=== PATIENT | male | born 1985 | race Caucasian/White ===

== ENCOUNTER 2018-05-23 11:32 | Emergency (ER) | payer MEDICAID, SELFPAY ==
[2018-05-23 11:42] VITALS: BP 108/66; PULSE 86; RESP 16; TEMP 36.8; O2SAT 98
--- NOTE | 2018-05-23 12:15 | DI.RPTCT_ITS ---
SYMPTOMS/DIAGNOSIS: HEADACHE, FEVER, ? ACUTE DISEASE; LOWER ABDOMINAL PAIN, ? ACUTE APPENDICITIS OR OBSTRUCTION NONCONTRAST HEAD CT: Comparison is made with February,. No intracranial hemorrhage, mass or infarct is seen. The ventricles are normal in size. There is no evidence of skull fracture. There is minimal sinus mucosal thickening. The mastoid air cells appear clear. IMPRESSION: Negative head CT. CT OF THE ABDOMEN AND PELVIS: Comparison is made with November,. Oral barium was given before the examination. No IV contrast was administered due to a history of IV contrast allergy. IV contrast was administered on the 2010 exam. The lung bases are clear. The heart size is normal. The liver, gallbladder, spleen, pancreas, kidneys and adrenals appear normal. The oral contrast is seen within the stomach and proximal to mid small bowel. The distal small bowel and colon are not opacified. The appendix appears normal. There is no abnormal bowel dilatation or gallbladder wall thickening. No mass or adenopathy is seen. The bladder and prostate are unremarkable. No bony abnormalities are identified. IMPRESSION: Negative CT of the abdomen and pelvis.
[2018-05-23 12:17] VITALS: RESP 16
[2018-05-23 12:38] LABS: Abs Immature Grans 0.02 k/cumm (0.0-0.09); Absolute Basophil Count 0.05 k/cumm (0.0-0.2); Absolute Eosinophil Count 0.19 k/cumm (0.0-0.7); Absolute Lymphocyte Count 1.87 k/cumm (1.2-3.4); Absolute Monocyte Count 0.72 k/cumm (0.11-0.7); Absolute Neutrophil Count 1.98 k/cumm (1.2-6.7); Eosinophils % 3.9; HCT 42.8 % (40.0-50.0); HGB 14.6 g/dL (13.5-17.5); Immature Grans % 0.4; Lymphocytes % 38.7; Mean Corp. HGB Concentration 34.1 g/dL (32.0-36.0); Mean Corpuscular Hemoglobin 29.1 pg (27.0-33.0); Mean Corpuscular Volume 85.4 fL (80-95); Monocytes % 14.9; Neutrophils % 41.1; Platelet Count 247 x1000/uL (130-400); RBC 5.01 m/cumm (4.50-6.00); RBC Distribution Width 13.1 % (11.8-14.1); White Blood Cell Count 4.83 k/cumm (4.4-10.8)
[2018-05-23 12:55] LABS: Bilirubin Negative (Negative); Blood Negative (Negative); Clarity Clear; Glucose Negative (Negative); Ketones Trace mg/dL (Negative); Leukocyte Esterase Negative (Negative); Nitrite Negative (Negative); Specific Gravity 1.025 (1.005-1.025); Urobilinogen 0.2 EU/dL (Up TO 0.2); pH 5.5 (5-8)
[2018-05-23 12:56] LABS: ALT 40 U/L (12-78); AST 40 U/L (15-37); Albumin 4.1 g/dL (3.4-5.0); Alkaline Phosphatase 85 U/L (46-116); BUN 15 mg/dL (7-18); Bilirubin, Total 0.3 mg/dL (0.2-1.0); Calcium 8.7 mg/dL (8.5-10.1); Chloride 99 mmol/L (98-107); Glucose 75 mg/dL (70-100); Potassium 4.5 mmol/L (3.5-5.1); Sodium 135 mmol/L (136-145); Total Protein 7.9 g/dL (6.4-8.2)
[2018-05-23] MEDS: Normal Saline 1,000 ML 1000 ML IV (13:29)
[2018-05-23] MEDS: MORPHine 10 MG/ML VIAL 4 MG IVP ×2 (13:29→14:40)
--- NOTE | 2018-05-23 14:36 | ED.GENADUL ---
Disposition Clinical Impression: Abdominal pain, Constipation Disposition: HOME Instructions: Constipation (ED), Abdominal Pain (ED) Additional Instructions: Drink plenty of fluids and eat a well-balanced diet including high fiber, vegetables and fruit. You can use mineral oil, magnesium citrate as directed, dispense suppositories, or an enema as directed for constipation. Follow-up with your primary care doctor within the next week. Return to the emergency department with any worsening or new concerning symptoms. Forms: Work Release Medical Decision Making - Lab Data Laboratory Tests 05/23/18 05/23/18 05/23/18 12:00 12:25 12:25 WBC RBC Hgb Hct MCV MCH MCHC RDW Plt Count MPV Immature Gran % Neutrophils % Lymphocytes % Monocytes % Eosinophils % Basophils % Absolute Neutrophils Absolute Lymphocytes Absolute Monocytes Absolute Eosinophils Absolute Basophils Sodium 135 L Potassium 4.5 Chloride 99 Carbon Dioxide 29.0 Anion Gap 7.0 BUN 15 Creatinine 0.90 Estimated GFR/1.73 m2 >= 60.00 Glucose 75 Lactate 1.0 Calcium 8.7 Total Bilirubin 0.3 AST 40 H ALT 40 Alkaline Phosphatase 85 Total Protein 7.9 Albumin 4.1 Urine Color Yellow Urine Clarity Clear Urine pH 5.5 Ur Specific [place] 1.025 Urine Protein Negative Urine Ketones Trace H Urine Blood Negative Urine Nitrite Negative Urine Bilirubin Negative Urine Urobilinogen 0.2 Ur Leukocyte Esterase Negative Urine Glucose Negative 05/23/18 12:25 WBC 4.83 RBC 5.01 Hgb 14.6 Hct 42.8 MCV 85.4 MCH 29.1 MCHC 34.1 RDW 13.1 Plt Count 247 MPV 10.0 Immature Gran % 0.4 Neutrophils % 41.1 Lymphocytes % 38.7 Monocytes % 14.9 Eosinophils % 3.9 Basophils % 1.0 Absolute Neutrophils 1.98 Absolute Lymphocytes 1.87 Absolute Monocytes 0.72 H Absolute Eosinophils 0.19 Absolute Basophils 0.05 Sodium Potassium Chloride Carbon Dioxide Anion Gap BUN Creatinine Estimated GFR/1.73 m2 Glucose Lactate Calcium Total Bilirubin AST ALT Alkaline Phosphatase Total Protein Albumin Urine Color Urine Clarity Urine pH Ur Specific [place] Urine Protein Urine Ketones Urine Blood Urine Nitrite Urine Bilirubin Urine Urobilinogen Ur Leukocyte Esterase Urine Glucose - Radiology Data Radiology results: report reviewed, image reviewed CT head: negative CT abdomen and pelvis: negative - Medical Decision Making 32-year-old male with essentially no past medical history presents with lower abdominal pain for the past 3 days associated with fever, headache and decreased appetite. He denies neck pain and no signs of meningismus so doubt meningitis. Suspect headache likely due to fever which may be from more likely an abdominal source as patient has significant lower abdominal tenderness to palpation, worse in left lower quadrant but also in RLQ with positive Rovsing sign, psoas sign. Will place an IV, bolus IV fluids, labs, CT head and CT abdomen and pelvis. Patient has history of allergy to IV dye which causes itching approximately 12 years ago. His chart also noted an allergy to p.o. contrast. Patient states he cannot recall this reaction. This was discussed with radiology who recommended barium which is safe in cases of allergy to the standard PO contrast. 1430 --patient planing of return of pain. He admitted to relief with morphine. Patient still drinking barium. Will give another dose of morphine. 1640 --labs and imaging reviewed. No acute significant findings. Patient reassessed and still complaining of lower abdominal pain and still with lower abdominal tenderness. Differential diagnosis discussed with patient that his symptoms may be due to constipation. Patient states he would rather go home and medication to help with his constipation. Patient has taken mineral before. He was also instructed that he can take suppositories, magnesium citrate or enema. It was discussed with patient that his headache and fever yesterday may be due to a viral syndrome which also may be causing his constipation. I discussed that meningitis seems doubtful as he had no fever here, normal white blood cell count, denies neck pain, no signs of meningismus. Lumbar puncture was discussed and patient declined stating he would not want this done at this time. Patient had requested a work note for this week and to return next week. I explained to patient that we can give a work note for the next 2 days and he is off the weekend and then to return Sunday. Patient states he feels good to go home at this time and lives nearby and will come back immediately if he has worsening or new concerning symptoms. History of Present Illness - General Chief complaint: Headache Stated complaint: HEADACHE/FEVER Time Seen by Provider: 05/23/18 11:39 Source: patient Mode of arrival: ambulatory Limitations: no limitations - History of Present Illness Initial comments: 32-year-old male with no significant past medical history presents with lower abdominal pain for the past 2 days. States the abdominal pain is intermittent, cramping and he initially thought was constipation. Patient took prune juice 2 days without relief. Last bowel movement 3 days ago. Patient states he normally has a bowel movement every day. Patient also admits to a fever yesterday morning of 103. Patient last took Aleve at 11 AM this morning. Patient also admits to a bitemporal headache since yesterday currently 01/29. Patient has been drinking well but eating less than usual. Patient denies neck pain, sore throat, ear pain, cough, rash, vomiting, diarrhea, urinary symptoms, recent travel or sick contacts - Related Data Acetaminophen [Tylenol] 500 mg PO DAILY PRN 11/29/17 Ibuprofen 800 mg PO PRN PRN 05/23/18 Allergies Allergy/AdvReac Type Severity Reaction Status Date / Time Iodinated Contrast- Oral and Allergy Unknown ITCHING Unverified 03/28/18 11:08 IV Dye [Iodinated Contrast Media - Oral and] Review of Systems Constitutional: denies: chills, fever Eyes: denies: eye pain ENT: denies: ear pain, dental pain Respiratory: denies: cough, shortness of breath Cardiovascular: denies: chest pain, dyspnea on exertion Gastrointestinal: abdominal pain. denies: nausea, vomiting, diarrhea Genitourinary: denies: urgency, dysuria, frequency Musculoskeletal: denies: back pain Skin: denies: rash, lesions Neurological: headache. denies: weakness, numbness Past Medical History - Past Medical History Medical history: no medical history Surgical history: other (Hemorrhoidectomy) - Social History Smoking status: current everyday smoker Alcohol use: none Drug use: marijuana General Exam - General Limitations: no limitations General appearance: alert, other (appears uncomfortable at times) - Eye Eye exam: Present: EOMI - ENT ENT exam: Present: normal orophraynx, mucous membranes moist, TM's normal bilaterally - Neck Neck exam: Present: normal inspection. Absent: lymphadenopathy - Respiratory Respiratory exam: Present: normal lung sounds bilaterally. Absent: respiratory distress, wheezes, rales, rhonchi, stridor - Cardiovascular Cardiovascular Exam: Present: regular rate, normal rhythm. Absent: bradycardia, tachycardia - GI/Abdominal GI/Abdominal exam: Present: soft, tenderness (Significant tenderness to palpation across lower abdomen, increased in left lower quadrant. Positive Rovsing sign. Positive psoas sign. Negative heel jar sign.), normal bowel sounds. Absent: distended, guarding, rebound, rigid - exam: Present: normal inspection External exam: Absent: erythema, swelling, lesions - Back Exam Back exam: Absent: CVA tenderness (R), CVA tenderness (L) - Neurological Exam Neurological exam: Present: alert, oriented X3, other (Muscle strength 5/5 bilateral upper and lower extremities.). Absent: CN II-XII intact, motor sensory deficit - Psychiatric Psychiatric exam: Present: normal affect - Skin Skin exam: Present: warm, dry, intact. Absent: rash Course Vital Signs - 24 hr 05/23/18 05/23/18 11:42 12:17 Temperature 98.2 F Pulse 86 Respiratory 16 16 Rate Blood Pressure 108/66 Pulse Oximetry 98
[2018-05-23] MEDS: Normal Saline 1,000 ML 125 ML IV (14:42)
[2018-05-23 15:59] VITALS: BP 107/67; PULSE 60; RESP 18; TEMP 37.2; O2SAT 98
[2018-05-23 16:57] VITALS: BP 101/65; PULSE 60; RESP 16; TEMP 36.6; O2SAT 97
== END 2018-05-23 17:00 | disposition home or self-care (01) ==
PROVIDERS: Emergency Provider Physician Assistant; PCP Family Medicine
DX: K59.00 Constipation, unspecified (principal); R10.30 Lower abdominal pain, unspecified; R51 Headache; R50.9 Fever, unspecified
CPT/HCPCS: 36415; 80053; 96361; 96374; 96376; 99284; 70450; 74176; 81003; 83605; 85025; 99285; J2270

== ENCOUNTER 2018-11-04 05:25 | Emergency (ER) | payer MEDICAID, SELFPAY ==
[2018-11-04 05:29] VITALS: BP 117/71; PULSE 79; RESP 16; TEMP 36.5; O2SAT 98
--- NOTE | 2018-11-04 05:57 | ED.GENADUL_ITS ---
Discharge Plan Disposition Patient Disposition: HOME Condition: Stable Discharge Details Chief Complaint: AnimalBite Clinical Impression: Skin infection Primary Care Provider: Angel Culp ED Provider: Shalini Moise Home Meds and New Rx's Prescriptions: New mupirocin calcium [Bactroban] 2 % cream 1 applic TP TID Qty: 15 RF: 0 No Action acetaminophen [Mapap Extra Strength] 500 MG tablet 500 mg PO DAILY PRNRF: 0 ibuprofen 200 MG capsule 800 mg PO PRN PRNRF: 0 Discharge Instructions Instructions: Cellulitis (ED), Insect Bite or Sting (ED) Additional Instructions: Apply topical antibiotic to the affected area as directed. Keep area clean dry and intact. Keep wound open to air when you are resting comfortably at home. Cover with dressing if any risk of contamination. Follow-up with the primary care doctor in 1-2 days for reevaluation. Return immediately to the emergency department any worsening or new concerning symptoms such as fever, red streaking or any other concerns. Stand Alone Forms: Work Release Discharge Data Discharge Physician: Shalini Moise Medical Decision Making 32-year-old male who presents with concern for spider bite to the right abdomen. No fever. There appears to be 2 small pinpoint papules/erosions on the right mid abdomen. There is no signs of abscess and only minimal surrounding erythema. Unsure if this is actually a spider bite but it appears consistent with a minor skin infection. No indication for oral antibiotics at this time. We will send home with a prescription for Bactroban. Patient is instructed on the importance of good wound care. He is instructed to return here immediately with any worsening signs. Patient requests a work note for today. HPI General Mode of arrival: ambulatory . Date/Time Provider Initiated Documentation: 11/04/18 05:45 . Limitations to Documentation: no limitations . Information obtained by: patient . HPI Narrative: Patient is a 32-year-old male who presents with concern for spider bite to his abdomen for the past 7 days. Patient states he was carrying wood into his house and shortly after noticed 2 small haskins on his back that of his abdomen which he thought was a spider bite. States they were red and tender but have gotten slightly increased in size. He states he applied lidocaine cream, anti-itch cream, but only had burning with these. Patient states he did not apply an antibiotic ointment. Patient denies any fever. Related Data Home Medications Medication Instructions Recorded Confirmed acetaminophen [Mapap Extra 500 mg PO DAILY PRN 11/29/17 11/04/18 Strength] ibuprofen 800 mg PO PRN PRN 05/23/18 11/04/18 mupirocin calcium [Bactroban] 1 applic TP TID #15 gm 11/04/18 Previous Rx's Medication Instructions Recorded mupirocin calcium [Bactroban] 1 applic TP TID #15 gm 11/04/18 Allergies Allergy/AdvReac Type Severity Reaction Status Date / Time Iodinated Contrast- Oral and Allergy Unknown ITCHING Unverified 11/04/18 05:35 IV Dye [Iodinated Contrast Media - Oral and] General Stated Complaint: AnimalBite NADIRA: 4 Review of Systems Review of Systems All systems reviewed & are unremarkable except as noted in HPI and below Constitutional Reports as per HPI, Denies chills and Denies fever(s) Eyes Denies blurry vision ENT Denies dizziness, Denies sore throat and Denies throat swelling Cardiovascular Denies chest pain and Denies dyspnea Respiratory Denies dyspnea Gastrointestinal Denies abdominal pain, Denies diarrhea and Denies vomiting Genitourinary Denies hematuria and Denies dysuria Musculoskeletal Denies back pain and Denies numbness Integumentary/Breasts Reports lesions and Denies rash Neurologic Denies dizziness and Denies numbness Allergic/Immunologic Denies throat swelling [facility] Medical History Hemorrhoids (Acute) Depression (Chronic) Surgical History H/O hemorrhoidectomy (Chronic) Incision & Drainage, Abscess or Hematoma Social History Smoking/Tobacco Use Status: Current-Occasional alcohol intake: current alcohol intake frequency: a few times a month substance use type: marijuana Exam Const General: cooperative, healthy appearing and no acute distress HENMT Head: normal to inspection Face and sinus: normal facial exam Eyes General: appearance normal, both eyes and all related structures Neck Neck: normal visual inspection and No submandibular swelling Lymphatic: no lymphadenopathy noted Chest Chest: normal inspection of the chest and no tenderness Resp Effort & Inspection: normal respiratory effort and able to speak in complete sentences Auscultation: clear to auscultation bilaterally Cardio Rate: regular rate Rhythm: regular rhythm GI Inspection: normal to inspection Palpation: soft, not firm, not rigid and nontender Auscultation: normal bowel sounds Skin Full body images: 1. 2 mm erosion with minimal surrounding erythema and tenderness to palpation. No induration, fluctuance, drainage, bleeding. 2. 1 mm papule with surrounding minimal erythema and tenderness palpation. No induration, fluctuance, drainage or bleeding. Neuro General: alert, awake and oriented x3 Cognition: normal cognition Speech: speech normal Motor: muscle tone normal throughout Sensory Exam: no sensory deficits noted Extrem General: normal to inspection, full ROM and normal capillary refill Psych Appearance: grossly normal Mental Status: mental status grossly normal Speech and Movement: speech and movement normal Affect: normal affect Course Vital Signs Temperature 97.7 F 11/04/18 05:29 Pulse 79 11/04/18 05:29 Respiratory Rate 16 11/04/18 05:29 Blood Pressure 117/71 11/04/18 05:29 Pulse Oximetry 98 11/04/18 05:29 Temperature 97.7 F 11/04/18 05:29 Temperature Source Temporal Artery Scan 11/04/18 05:29 Pulse 79 11/04/18 05:29 Respiratory Rate 16 11/04/18 05:29 Respiratory Effort 11/04/18 05:29 Blood Pressure 117/71 11/04/18 05:29 Pulse Oximetry 98 11/04/18 05:29 Oxygen Delivery Method Room Air 11/04/18 05:29 Oxygen Flow Rate 0 11/04/18 05:29 Pain Level 2 11/04/18 05:29
[2018-11-04 08:12] VITALS: BP 117/71; PULSE 79; RESP 16; TEMP 36.5; O2SAT 98
== END 2018-11-04 06:00 | disposition home or self-care (01) ==
LOC: ER 06:09
PROVIDERS: Emergency Provider Physician Assistant; PCP Family Medicine
DX: L08.9 Local infection of the skin and subcutaneous tissue, unspecified (principal)
CPT/HCPCS: 99283

== ENCOUNTER 2018-12-20 12:28 | Emergency (ER) | payer MEDICAID, SELFPAY ==
[2018-12-20 12:30] VITALS: PULSE 88; RESP 16; TEMP 36.7; O2SAT 99
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
[2018-12-20 12:53] VITALS: PULSE 88; RESP 16; TEMP 36.7; O2SAT 99
== END 2018-12-20 12:55 | disposition home or self-care (01) ==
LOC: ER 12:57
PROVIDERS: Emergency Provider Student in an Organized Health Care Education/Training Program; PCP Family Medicine
DX: S01.81XA Laceration without foreign body of other part of head, initial encounter (principal); S50.312A Abrasion of left elbow, initial encounter; V47.5XXA Car driver injured in collision with fixed or stationary object in traffic accident, initial encounter
CPT/HCPCS: 12001; 99282

== ENCOUNTER 2019-02-05 18:16 | Emergency (ER) | payer MEDICAID, SELFPAY ==
[2019-02-05 18:20] VITALS: BP 132/102; PULSE 124; RESP 18; TEMP 36.3; O2SAT 95
[2019-02-05 18:57] LABS: *AMPHETAMINES SCREEN URINE Negative (Negative); *BARBITURATES SCREEN URINE Negative (Negative); *BENZODIAZEPINES SCREEN URINE Negative (Negative); Cannabinoids THC Negative (Negative); Cocaine Screen,Urine Negative (Negative); METHADONE URINE SCREEN Negative (Negative); OPIATES URINE SCREEN Negative (Negative)
[2019-02-05 19:00] LABS: Tricyclic Antidepressants Negative (Negative)
--- NOTE | 2019-02-05 19:10 | W.ED.GENAD ---
Discharge Plan Disposition Patient Disposition: HOME Condition: Good Discharge Details Chief Complaint: GenMedical Clinical Impression: Worried well Primary Care Provider: Angel Culp ED Provider: Serjio Sierra Home Meds and New Rx's Prescriptions: No Action acetaminophen [Mapap Extra Strength] 500 MG tablet 500 mg PO DAILY PRNRF: 0 mupirocin calcium [Bactroban] 2 % cream 1 applic TP TID Qty: 15 RF: 0 ibuprofen 200 MG capsule 800 mg PO PRN PRNRF: 0 Discharge Instructions Additional Instructions: Your drug screen shows no evidence of the tested illicit substances. If you notice any worsening of your symptoms, or any new symptoms such as vomiting, diarrhea, fever, chills, shortness of breath, chest pain, numbness, weakness, or fainting , please return immediately to the emergency department for reevaluation. Please follow up with your primary care provider as soon as possible for reassessment and reevaluation. As always, it was a pleasure participating in your medical care today. Referrals: Angel Culp MD [Primary Care Provider] - Discharge Data Discharge Date/Time-TO BE ENTERED AT DEPARTURE: 02/05/19 19:14 Medical Decision Making This is a 33-year-old male who presents to get a drug screen. He states that his mother has schizophrenia and is demanding that he gets a drug screen. He denies any other complaints, and states that he has not been taking any drugs. I have seen this patient in the past, and he is a jumpy Feller at baseline, however this is his baseline on my multiple assessments, all of which times have had negative urine drug screens. He has no complaints whatsoever, states that he feels excellent. Urine drug screen was performed, results are banerjee negative. Although the patient had initial tachycardia on his arrival on my reassessment his heart rate was at 80 upon discharge. Patient feels very well. He will be discharged home with his lab results. I have extensively reviewed the treatment plan and discharge instructions with the patient. I have addressed all patient concerns at this time. The patient was made aware of what symptoms to monitor for that would warrant a return to the emergency department. Discussed the plan with the patient, they demonstrate verbal understanding and agreement with our assessment and plan at this time. HPI General Date/Time Provider Initiated Documentation: 02/05/19 18:19. HPI Narrative: This is a 33-year-old male with no significant past medical history who presents today for evaluation requesting a drug screen. Patient states that his mother has schizophrenia, and was demanding a drug screen. He states that that is the sole reason that he is here today. He denies any drug use. He has no other complaints whatsoever. He states that he does not use any illicit substances, although he used to in the past but no longer does. He has no other complaints at this time. Related Data Home Medications Medication Instructions Recorded Confirmed acetaminophen [Mapap Extra 500 mg PO DAILY PRN 11/29/17 11/04/18 Strength] ibuprofen 800 mg PO PRN PRN 05/23/18 11/04/18 mupirocin calcium [Bactroban] 1 applic TP TID #15 gm 11/04/18 Previous Rx's Medication Instructions Recorded mupirocin calcium [Bactroban] 1 applic TP TID #15 gm 11/04/18 Allergies Allergy/AdvReac Type Severity Reaction Status Date / Time Iodinated Contrast- Oral and Allergy Unknown ITCHING Unverified 02/05/19 18:23 IV Dye [Iodinated Contrast Media - Oral and] General Stated Complaint: GenMedical NADIRA: 5 Review of Systems Review of Systems All systems reviewed & are unremarkable except as noted in HPI and below PFSH Social History Smoking/Tobacco Use Status: Current-Occasional Alcohol Intake: current Alcohol Intake frequency: a few times a month Drug use: Occasionally Substance use type: marijuana Do you feel safe at home: Yes Do you feel safe in your relationship?: Yes Exam Narrative Exam Narrative: 1.Const: Well-nourished, Well-developed, appearing stated age 2.Eyes: PERRL, no conjunctival injection, and symmetrical lids. 3.ENT: Atraumatic external nose and ears. Moist MM. Neck: Symmetric, trachea midline, No thyromegaly. 4.CVS: +S1/S2, No murmurs or gallops. Peripheral pulses 2+ and equal in all extremities. Brisk capillary refill in all extremities. 5.RESP: Unlabored respiratory effort. Clear to auscultation bilaterally. No wheezes rales or rhonchi 6.GI: Soft, Nontender/Nondistended, No hepatosplenomegaly. No guarding or rebound. 7.MSK: Normocephalic/Atraumatic, Extremities w/o deformity or ttp No cyanosis or clubbing, Normal movement of all extremities 8.Skin: Warm, Dry. No rashes or lesions. 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 Sensation grossly intact, no focal neurologic deficits. 10.Psych: (AAO) x3. Appropriate mood and affect Course Vital Signs Temperature 36.3 C L 02/05/19 18:20 Pulse 124 H 02/05/19 18:20 Respiratory Rate 18 02/05/19 18:20 Blood Pressure 132/102 H 02/05/19 18:20 Pulse Oximetry 95 02/05/19 18:20 Temperature 36.3 C L 02/05/19 18:20 Temperature Source Temporal Artery Scan 02/05/19 18:20 Pulse 124 H 02/05/19 18:20 Respiratory Rate 18 02/05/19 18:20 Respiratory Effort Non-Labored 02/05/19 18:22 Blood Pressure 132/102 H 02/05/19 18:20 Blood Pressure Position Sitting 02/05/19 18:20 Pulse Oximetry 95 02/05/19 18:20 Oxygen Delivery Method Room Air 02/05/19 18:20 Oxygen Flow Rate 0 02/05/19 18:20 Pain Level 0 02/05/19 18:20 Lab/Test Results Lab/Test Results: Laboratory Tests Range/Units 02/05/19 18:28 Urine Opiates Screen (Negative) Negative Urine Methadone Screen (Negative) Negative Ur Barbiturates Screen (Negative) Negative Ur Tricyclics Screen (Negative) Negative Ur Amphetamines Screen (Negative) Negative U Benzodiazepines Scrn (Negative) Negative Urine Cocaine Screen (Negative) Negative Ur THC Screen (Negative) Negative
== END 2019-02-05 19:14 | disposition home or self-care (01) ==
PROVIDERS: Emergency Provider Student in an Organized Health Care Education/Training Program; PCP Family Medicine
DX: Z02.89 Encounter for other administrative examinations (principal); R00.0 Tachycardia, unspecified
CPT/HCPCS: 80307; 99282

== ENCOUNTER 2019-05-17 10:39 | Emergency (ER) | payer MEDICAID, SELFPAY ==
[2019-05-17 10:43] VITALS: BP 123/97; PULSE 67; RESP 15; TEMP 36.7; O2SAT 96
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
[2019-05-17] MEDS: Erythromycin Ophth Oint 3.5 GM TUBE OU (11:17)
[2019-05-17 11:18] VITALS: BP 123/97; PULSE 67; RESP 15; TEMP 36.7; O2SAT 96
== END 2019-05-17 11:18 | disposition home or self-care (01) ==
PROVIDERS: Emergency Provider Nurse Practitioner Family; PCP Family Medicine
DX: H10.33 Unspecified acute conjunctivitis, bilateral (principal)
CPT/HCPCS: 99283

== ENCOUNTER 2019-12-21 09:05 | Emergency (ER) | payer MEDICAID, SELFPAY ==
[2019-12-21 09:09] VITALS: BP 118/62; PULSE 69; RESP 18; TEMP 36.6; O2SAT 98
--- NOTE | 2019-12-21 09:33 | ED.GENADUL_ITS ---
Discharge Plan Disposition Patient Disposition: HOME Condition: Stable Discharge Details Chief Complaint: EyeProblem Clinical Impression: Injury of conjunctiva and corneal abrasion of right eye without foreign body Primary Care Provider: Angel Culp ED Provider: Marcell Tucker Home Meds and New Rx's Prescriptions: No Action Chantix Starting Month Box 0.5 mg (11)- 1 mg (42) tablets,dose pack See Rx Instructions PO PER PKG DIR Qty: 53 RF: 0 Discharge Instructions Instructions: Corneal Abrasion (ED) Additional Instructions: Please begin erythromycin ointment 3-4 times per day for 4 to 5 days as we discussed. If you have ongoing discomfort in 48 hours, please call the ER at [phone] and asked to speak to care management for a referral to [facility]. May use Tylenol and/or ibuprofen as needed for pain. Continue your regular medication. Medical Decision Making 34-year-old male presents from home stating after rubbing his right eye this morning he developed right eye pain and discomfort with clear tearing. No change to his vision. Is not otherwise been well. His vital signs are normal. On exam his visual acuity is within normal limits, his right conjunctiva and sclera are injected, there is evidence of trace corneal abrasion outside the axis of vision in the superior portion. No foreign body seen. Will place on erythromycin ointment, refer to optometry if not improving in 48 hours. Discussed with him outpatient management, return indications, PRN follow-up if not improved in 48 hours. HPI General Mode of arrival: ambulatory . Date/Time Provider Initiated Documentation: 12/21/19 09:06 . Limitations to Documentation: no limitations . Information obtained by: patient and family . History of Present Illness 34 year old M presents to the emergency department with the chief complaint of Right eye foreign body and discomfort, described as moderate, Quality is described as dull and constant, and is localized to the eyes and right. Patient reports no radiation. Patient started experiencing this hour(s) and it has been constant. No relieving factors improve symptom(s), No exacerbating factors reported . Patient notes other (No change to vision, see nursing note of visual acuity); denies fever/chills. Patient did receive the following treatments prior to arrival, other (Irrigated) Related Data Home Medications Medication Instructions Recorded Confirmed varenicline 0.5 mg (11)-1 mg (42) See Rx Instructions PO PER PKG DIR 07/25/19 12/21/19 tablets in a dose pack #53 dose pk Previous Rx's Medication Instructions Recorded varenicline 0.5 mg (11)-1 mg (42) See Rx Instructions PO PER PKG DIR 07/25/19 tablets in a dose pack #53 dose pk Allergies Allergy/AdvReac Type Severity Reaction Status Date / Time Iodinated Contrast Media Allergy Unknown ITCHING Unverified 12/21/19 09:13 [Iodinated Contrast Media - Oral and] General Stated Complaint: EyeProblem NADIRA: 3 Review of Systems Narrative: 6 systems reviewed and otherwise negative [facility] Medical History Depression (Chronic) Hemorrhoids (Acute) Social History Smoking/Tobacco Use Status: Current-Occasional Alcohol Intake: current Alcohol Intake frequency: a few times a month Drug use: Occasionally Substance use type: marijuana Do you feel safe at home: Yes Do you feel safe in your relationship?: Yes Exam Narrative Exam Narrative: GEN: awake, alert, oriented 3. Pleasant, well groomed, interactive. HEAD: Normocephalic, atraumatic ENT: Mucous membranes moist, oropharynx unremarkable, External ear exam unremarkable EYES: PERRL, EOMI, mild right scleral injection. Right eye with subtle superior lateral corneal abrasion outside the axis of vision. No foreign body seen, negative Beti sign. NECK: Full ROM, no VU, no menigismus Neuro: Grossly normal neurologic exam, conversant, interactive. Psych: Speech fluent, thoughts congruent, affect normal Course Vital Signs Vital signs: Vital Signs Temperature 36.6 C 12/21/19 09:09 Pulse 69 12/21/19 09:09 Respiratory Rate 18 12/21/19 09:09 Blood Pressure 118/62 12/21/19 09:09 Pulse Oximetry 98 12/21/19 09:09 Temperature 36.6 C 12/21/19 09:09 Temperature Source Temporal Artery Scan 12/21/19 09:09 Pulse 69 12/21/19 09:09 Respiratory Rate 18 12/21/19 09:09 Respiratory Effort Non-Labored 12/21/19 09:13 Blood Pressure 118/62 12/21/19 09:09 Blood Pressure Position Sitting 12/21/19 09:09 Pulse Oximetry 98 12/21/19 09:09 Oxygen Delivery Method Room Air 12/21/19 09:09 Oxygen Flow Rate 0 12/21/19 09:09 Pain Level 0 12/21/19 09:09
[2019-12-21] MEDS: Balanced Salt Solution 15 ML BTL OP (09:44)
[2019-12-21] MEDS: Erythromycin Ophth Oint 3.5 GM TUBE OP (09:45)
[2019-12-21] MEDS: Fluorescein STRIPS 100/BOX 1 MG OP (09:47)
[2019-12-21] MEDS: Tetracaine 0.5% 4 ML BTL OP (09:47)
== END 2019-12-21 09:47 | disposition home or self-care (01) ==
PROVIDERS: Emergency Provider Emergency Medicine; PCP Family Medicine
DX: H57.11 Ocular pain, right eye (principal); S05.01XA Injury of conjunctiva and corneal abrasion without foreign body, right eye, initial encounter; X58.XXXA Exposure to other specified factors, initial encounter
CPT/HCPCS: 99283

== ENCOUNTER 2020-03-18 12:24 | Emergency (ER) | payer MEDICAID, SELFPAY ==
[2020-03-18 12:39] VITALS: BP 135/90; PULSE 91; RESP 14; TEMP 36.4; O2SAT 99
--- NOTE | 2020-03-18 12:48 | ED.GENADUL_ITS ---
Discharge Plan Disposition Patient Disposition: AGAINST MEDICAL ADVICE Condition: Critical Discharge Details Chief Complaint: OD/Poison Clinical Impression: Opioid overdose Primary Care Provider: Angel Culp ED Provider: Brice Mukherjee Home Meds and New Rx's Prescriptions: New naloxone 4 mg/actuation spray,non-aerosol 4 mg YASMEEN Q2M PRNQty: 2 RF: 0 No Action Chantix Starting Month Box 0.5 mg (11)- 1 mg (42) tablets,dose pack See Rx Instructions PO PER PKG DIR Qty: 53 RF: 0 Discharge Instructions Instructions: Against Medical Advice (ED), Opioid Use Disorder (ED) Additional Instructions: You are leaving AGAINST MEDICAL ADVICE and may . Please return to the ER at any point if you change your mind. Please stop using drugs. Referrals: [facility] [Outside] Angel Culp MD [Primary Care Provider] - Discharge Data Discharge Date/Time-TO BE ENTERED AT DEPARTURE: 03/18/20 12:55 Medical Decision Making 34-year-old male who accidentally overdosed on opioid, arrives in passenger seat of his motor vehicle hypoxic and in respiratory arrest. Respiration was supported while naloxone intranasal was administered. Patient regained full consciousness. Blood sugar normal. Plan for monitoring for 2 hours. I had a discussion with the patient about my diagnostic/treatment plan. Patient declines plan and wishes to leave against medical advise. I reiterated my concerns to the patient and explained the risks of leaving prior to completion of workup and treatment. I specifically emphasized the possibility of life- threatening or lifestyle modifying disease that would not be appropriately treated if they leave. Patient verbalized understanding of my concerns and the potential for life threatening or lifestyle modifying disease. Patient has capacity to make informed decision. I again explained my concerns and urged the patient to stay for treatment as outlined. Patient continued to refuse. I then discussed potential less ideal alternatives to diagnostic/treatment plan as outlines and patient refused. I recommended that the patient follow-up with primary care physician AUBRIE or return to the Emergency Department at any time for further treatment. I advised the patient not to drive. Patient left emergency department AGAINST MEDICAL ADVICE. I contacted local law enforcement to alert them to situation and my concern regarding him driving. HPI General Date/Time Provider Initiated Documentation: 03/18/20 12:48 . Limitations to Documentation: altered mental status . HPI Narrative: 34-year-old male arrives in passenger seat of motor vehicle driven by friends having overdosed on opioid. Friends note he used to much IV heroin or fentanyl. This occurred just prior to arrival. History review of systems limited secondary to altered mental status. Friends note prior to this he was acting normal and feeling normal. No recent trauma. Related Data Home Medications Medication Instructions Recorded Confirmed varenicline 0.5 mg (11)-1 mg (42) See Rx Instructions PO PER PKG DIR 07/25/19 12/21/19 tablets in a dose pack #53 dose pk naloxone 4 mg YASMEEN Q2M PRN #2 each 03/18/20 Previous Rx's Medication Instructions Recorded varenicline 0.5 mg (11)-1 mg (42) See Rx Instructions PO PER PKG DIR 07/25/19 tablets in a dose pack #53 dose pk naloxone 4 mg YASMEEN Q2M PRN #2 each 03/18/20 Allergies Allergy/AdvReac Type Severity Reaction Status Date / Time Iodinated Contrast Media Allergy Unknown ITCHING Unverified 12/21/19 09:13 [Iodinated Contrast Media - Oral and] General Stated Complaint: OD/Poison NADIRA: 1 Review of Systems Narrative: Unable to obtain secondary to mental status Unobtainable due to mental status [facility] Social History Smoking/Tobacco Use Status: Current-Occasional Alcohol Intake: current Alcohol Intake frequency: a few times a month Drug use: Occasionally Substance use type: marijuana Do you feel safe at home: Yes Do you feel safe in your relationship?: Yes Exam Const Orientation: obtunded Other: Unresponsive on arrival [facility] Head: normocephalic and atraumatic Eyes Sclera: normal sclerae Pupils: pinpoint bilaterally Neck Neck: trachea midline and supple Resp Other: sonorous slow respirations Cardio Rate: regular rate and not tachycardic Rhythm: regular rhythm GI Palpation: soft, not firm, no guarding, no masses, not rigid and nontender Skin General skin exam: no rashes or lesions noted Neuro General: other (Hypotonia) Cognition: abnormal cognition Extrem General: no edema Psych Appearance: grossly normal Course Vital Signs Vital signs: Vital Signs Temperature 36.4 C L 03/18/20 12:39 Pulse 91 H 03/18/20 12:39 Respiratory Rate 14 03/18/20 12:39 Blood Pressure 135/90 03/18/20 12:39 Pulse Oximetry 99 03/18/20 12:39 Temperature 36.4 C L 03/18/20 12:39 Temperature Source Skin 03/18/20 12:39 Pulse 91 H 03/18/20 12:39 Respiratory Rate 14 03/18/20 12:39 Blood Pressure 135/90 03/18/20 12:39 Blood Pressure Position Sitting 03/18/20 12:39 Pulse Oximetry 99 03/18/20 12:39 Oxygen Delivery Method Room Air 03/18/20 12:39 Oxygen Flow Rate 0 03/18/20 12:39 Pain Level 0 03/18/20 12:39 Critical Care Time Critical Care Time Critical Care Time: Yes Total Critical Care Time: 20 Attestation: I spent greater than 20 minutes addressing this patient's immediate life threats
== END 2020-03-18 12:55 | disposition left against medical advice (07) ==
PROVIDERS: Emergency Provider Student in an Organized Health Care Education/Training Program; PCP Family Medicine
DX: T40.1X1A Poisoning by heroin, accidental (unintentional), initial encounter (principal); R09.2 Respiratory arrest; R09.02 Hypoxemia; Z53.29 Procedure and treatment not carried out because of patient's decision for other reasons; F11.20 Opioid dependence, uncomplicated
CPT/HCPCS: 99285; 99284; J2310

== ENCOUNTER 2020-04-06 09:25 | Outpatient (CLI) | payer MEDICAID, SELFPAY ==
[2020-04-08 07:12] LABS: COVID-19 RT-PCR Result NEGATIVE (Negative)
== END 2020-04-06 09:45 ==
PROVIDERS: PCP Family Medicine; Visit Provider Family Medicine
DX: Z11.59 Encounter for screening for other viral diseases (principal)
CPT/HCPCS: U0003

== ENCOUNTER 2020-04-24 09:55 | Emergency (ER) | payer MEDICAID, SELFPAY ==
--- NOTE | 2020-04-24 10:18 | ED.GENADUL_ITS ---
Discharge Plan Disposition Patient Disposition: AGAINST MEDICAL ADVICE Condition: Stable Discharge Details Chief Complaint: Abd Prob Clinical Impression: Abdominal pain Primary Care Provider: Angel Culp ED Provider: Lyndsey Connors Home Meds and New Rx's Prescriptions: Continued Chantix Starting Month Box 0.5 mg (11)- 1 mg (42) tablets,dose pack See Rx Instructions PO PER PKG DIR Qty: 53 RF: 0 Vivitrol 380 mg Suspension,Extended Rel Recon 380 mg IM QMONTH RF: 0 naloxone 4 mg/actuation spray,non-aerosol 4 mg YASMEEN Q2M PRNQty: 2 RF: 0 Discharge Instructions Instructions: Abdominal Pain (ED) Additional Instructions: You are leaving prior to results of your CT scan. Your labs are reassuring. This may be associated with your recent cessation of Suboxone. However, without the imaging I am unclear. You may return at any point for further evaluation. Please follow-up with primary care next week for reevaluation. Please seek care urgently once again with any new or worsening symptoms or to continue todays visit. Referrals: Angel Culp MD [Primary Care Provider] - Discharge Data Discharge Date/Time-TO BE ENTERED AT DEPARTURE: 04/24/20 11:47 Medical Decision Making <ROBERT Leary - Last Filed: 04/24/20 12:52> Patient is a 34-year-old gentleman presenting today with chief complaint of abdominal pain. He reports the pain began night before last. He describes the pain as labor pains. Denies any change in his appetite. No nausea vomiting. Initially he had reported to nursing staff that he was having diarrhea. However, he denies this to me and states that he had a normal BM this morning. States that pain is intermittent, comes it waves and can be severe. States that pain starts in the epigastric region and radiates throughout the abdomen and part way up into the chest. He has not had a change in his appetite but does state that he was concerned that this may exacerbate things who has been sticking to more of a liquid diet. He denies any nausea vomiting. No fevers or chills. Denies any melena, hematochezia. He denies any hematemesis. No previous abdominal surgeries. He reports that he has stopped using Suboxone, states that he last used 1 week ago. 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 Patient smokes half a pack of cigarettes daily. Denies any alcohol use. On exam, patient appears nontoxic. Initially, he was resting comfortably but with again examining him he began writhing in pain and crawled to the floor on his hands and knees. His pain seemed to be primarily in the epigastric region without any evidence of peritoneal findings. Lungs are clear, normal cardiac exam. Fairly broad differential. His exam is not consistent with appendicitis, cholecystitis. Is not tender into his back, I find pancreatitis less likely. I did consider cardiac etiology although I find this less likely as well. Pain is not worsened with exertion but seems more crampy in nature. This is likely linked to his recent stopping Suboxone. However, given the severity of discomfort I do feel that imaging is appropriate. Patient is allergic to iodinated contrast, we will perform a noncontrast CT and obtain baseline labs. I worry that opiates may worsen his discomfort if this is constipation linked. Will give Toradol, Tylenol and GI cocktail help with Patient is much improved after the above interventions. He is requesting discharge. Patient was heading over for CT now. He reports he is on the timeline and will need to leave prior to results. However, he would like to move forward with the imaging reports that he will return at his convenience. I did advise against leaving prior to the results from the radiologist. I did quickly look at the CT and do not see any free air. Patient is resting comfortably and is feeling well. We did discuss my concerns with him leaving prior to the results of his CT. He does continue to insist on discharge. Patient is aware that he may return anytime for continued care. Strict return precautions were given. If he is not return to the emergency department, he will follow-up with primary care next week for reevaluation. All of his questions and concerns were addressed <Brice Mukherjee MD - Last Filed: 05/05/20 11:21> ECG was reviewed and interpreted by me: Sinus rhythm 67 bpm, right bundle branch block is present with right axis deviation, abnormal. I compared to prior ECG from 08/08/2017 and no significant changes. Patient was evaluated, treated and disposition by ROBERT Cobb. I was physically present in the emerge form and available for consultation. I was not consulted on this patient other than to interpret ECG as noted above. HPI <ROBERT Leary - Last Filed: 04/24/20 12:52> General Mode of arrival: ambulatory . Date/Time Provider Initiated Documentation: 04/24/20 10:18 . Limitations to Documentation: no limitations . Information obtained by: patient and RN notes reviewed . History of Present Illness 34 year old M presents to the emergency department with the chief complaint of abdominal pain, described as severe, with intensity rated at 10. Quality is described as other (cramping), and is localized to the abdomen. Patient reports no radiation. Patient started experiencing this day(s) (1.5) and it has been intermittent (pain comes in waves). No relieving factors improve symptom(s), No exacerbating factors reported . Patient notes chest pain (states epigastric pain radiates up into chest from the abdomen); denies cough, diaphoresis, fever/chills, headaches, loss of appetite, nausea/vomiting, rash and shortness of breath. Patient did receive the following treatments prior to arrival, none Related Data Home Medications Medication Instructions Recorded Confirmed varenicline 0.5 mg (11)-1 mg (42) See Rx Instructions PO PER PKG DIR 07/25/19 04/24/20 tablets in a dose pack #53 dose pk naloxone 4 mg YASMEEN Q2M PRN #2 each 03/18/20 04/24/20 Vivitrol 380 mg IM QMONTH 04/24/20 04/24/20 Previous Rx's Medication Instructions Recorded varenicline 0.5 mg (11)-1 mg (42) See Rx Instructions PO PER PKG DIR 07/25/19 tablets in a dose pack #53 dose pk naloxone 4 mg YASMEEN Q2M PRN #2 each 03/18/20 Allergies Allergy/AdvReac Type Severity Reaction Status Date / Time Iodinated Contrast Media Allergy Unknown ITCHING Unverified 04/24/20 11:04 [Iodinated Contrast Media - Oral and] General NADIRA: 1 Review of Systems <ROBERT Leary - Last Filed: 04/24/20 12:52> Constitutional Constitutional: Reports as per HPI, Denies chills, Denies fatigue, Denies fever(s) and Denies headache(s) ENT Ears, Nose, Mouth, and Throat: Denies headache(s) Cardiovascular Cardiovascular: Reports as per HPI, Reports chest pain (during waves of abdominal pain), Denies radiating jaw, neck or arm pain and Denies dyspnea Respiratory Respiratory: Reports as per HPI, Denies cough and Denies dyspnea Gastrointestinal Gastrointestinal: Reports as per HPI, Reports abdominal pain, Denies belching, Denies bloating, Denies hematochezia, Denies change in bowel habits, Denies tenesmus, Denies change in stool character, Denies constipation, Reports cramping, Denies diarrhea, Denies loose stools, Denies nausea, Denies vomiting and Denies hematemesis Genitourinary Genitourinary: Denies system reviewed and no additional complaints, except as documented (patient denies any change in urinary habits) Musculoskeletal Musculoskeletal: Reports as per HPI and Denies back pain Integumentary/Breasts Skin/Breast: Reports as per HPI and Denies rash Neurologic Neurologic: Reports as per HPI and Denies headache(s) Endocrine Endocrine: Denies fatigue PFSH <ROBERT Leary - Last Filed: 04/24/20 12:52> Medical History Depression (Chronic) Hemorrhoids (Acute) Surgical History H/O hemorrhoidectomy (Chronic) Incision & Drainage, Abscess or Hematoma Hemorrhoid Social History Smoking/Tobacco Use Status: Current-Occasional Alcohol Intake: current Alcohol Intake frequency: a few times a month Drug use: Daily Substance use type: marijuana Do you feel safe at home: Yes Do you feel safe in your relationship?: Yes Exam <ROBERT Leary - Last Filed: 04/24/20 12:52> Const General: cooperative, healthy appearing, uncomfortable, no acute distress, well developed and anxious Nutritional Appearance: average body habitus and well nourished Orientation: alert and awake HENID Head: normal to inspection Mouth: moist mucous membranes Resp Effort & Inspection: normal respiratory effort, able to speak in complete sentences and no respiratory distress Auscultation: clear to auscultation bilaterally, no rales, no rhonchi and no wheezes Cardio Rate: regular rate Rhythm: regular rhythm Heart Sounds: S1 normal and S2 normal GI Inspection: normal to inspection, non-distended, no incisions, no visible herniation and no visible pulsation Palpation: soft, no hepatosplenomegaly, not firm, no guarding, no hernias, no pulsatile masses, not rigid and tender (diffuse tenderness, exam limited, max at epigastric region) Percussion: normal to percussion Auscultation: normal bowel sounds Back/Spine/Pelvis Back: no CVA tenderness Skin General skin exam: no rashes or lesions noted Trauma: no lacerations or abrasions Neuro General: patient alert and patient awake Cognition: normal cognition Speech: speech normal Gait: normal gait Psych Appearance: grossly normal and well kempt Mental Status: mental status grossly normal Speech and Movement: speech and movement normal
[2020-04-24 10:19] VITALS: BP 114/80; PULSE 89; RESP 20; TEMP 36.7; O2SAT 94
[2020-04-24 10:41] LABS: Abs Immature Grans 0.03 k/cumm (0.0-0.09); Absolute Basophil Count 0.03 k/cumm (0.0-0.2); Absolute Lymphocyte Count 1.15 k/cumm (1.2-3.4); Absolute Monocyte Count 0.94 k/cumm (0.11-0.7); Basophils % 0.4; Eosinophils % 1.2; HCT 43.6 % (40.0-50.0); HGB 14.9 g/dL (13.5-17.5); Immature Grans % 0.4 %; Lymphocytes % 13.6; Mean Corp. HGB Concentration 34.2 g/dL (32.0-36.0); Mean Corpuscular Hemoglobin 29.3 pg (27.0-33.0); Mean Corpuscular Volume 85.8 fL (80-95); Mean Platelet Volume 9.2 fL (8.0-11.0); Monocytes % 11.1; Neutrophils % 73.3; Platelet Count 319 x1000/uL (130-400); RBC 5.08 m/cumm (4.50-6.00); RBC Distribution Width 12.8 % (11.8-14.1); White Blood Cell Count 8.45 k/cumm (4.4-10.8)
--- NOTE | 2020-04-24 10:45 | DI.CT_ITS ---
EXAM: CT ABDOMEN PELVIS WO CLINICAL HISTORY: diffuse discomfort. TECHNIQUE: Imaging Protocol: Axial computed tomography images with coronal and sagittal reformatted images were created and reviewed. Oral: no COMPARISON: CT ABD PELVIS WO CONTRAST from 05/23/2018 FINDINGS: ABDOMEN: The exam is limited by lack of IV or oral contrast and lack of intra-abdominal fat. Lung Bases: Norm al where visualized. Liver: Normal density. No measurable mass. Gallbladder and biliary tract: No radiodense calculus or dilation. Pancreas: Normal density, no abnormal calcifications or inflammatory process. Spleen: Normal. Kidneys: Normal size, contour and axis. No radiodense stones or obstructive uropathy. No masses seen. Adrenal glands: No masses seen. Lymph nodes: Within normal limits. Abdominal Aorta: Abdominal portion non-dilated. PELVIS: Bladder: Symmetric distention, no gross wall thickening. Bowel: No abnormal distension. Question of wall thickening at the base of the cecum. Normal appendi x.. Peritoneal cavity: There is a small amount of fluid in the low pelvis. No free air. Reproductive organs: Within normal limits. Bones: Degenerative disc changes at L4-5. Large Schmorl's node versus hemangioma in L4. IMPRESSION: Limited exam due to lack of contrast and lack of intra-abdominal fat. Question of wall thickening at the base of the cecum versus contraction. RADIATION DOSE DELIVERED: Total DLP DATA REPOSITORY: All CT scans at this facility are submitted to the National Radiology Data Registry (NRDR) Dose Index Registry (DIR) with the [employer] (A[employer]). RADIATION OPTIMIZATION: All CT scans at this facility use at least one of these dose optimization te chniques: automated exposure control; mA and/or kV adjustment per patient size (includes targeted exa ms where dose is matched to clinical indication); or iterative reconstruction.
[2020-04-24] MEDS: ACETAMINOPHEN 1,000 MG/100 ML BTL 400 MG IVPB (10:55)
[2020-04-24 10:56] LABS: Chloride 100 mmol/L (98-107); Potassium 4.3 mmol/L (3.5-5.1); Sodium 137 mmol/L (136-145)
[2020-04-24] MEDS: Ketorolac 30 MG/ML VIAL IVP (10:56)
[2020-04-24] MEDS: Lactated Ringers 1,000 ML 1000 ML IV (10:56)
[2020-04-24 11:08] LABS: ALT 25 U/L (16-63); AST 18 U/L (15-37); Albumin 4.3 g/dL (3.4-5.0); Alkaline Phosphatase 80 U/L (46-116); Anion Gap 9.5 mmol/L (3-11); BUN 11 mg/dL (7-18); CO2 27.5 mmol/L (21.0-32.0); CREATININE 1.02 mg/dL (0.70-1.30); Calcium 9.5 mg/dL (8.5-10.1); Glucose 160 mg/dL (74-106); Total Protein 8.4 g/dL (6.4-8.2)
[2020-04-24 11:14] LABS: Troponin I < 0.05 ng/mL (<0.06)
[2020-04-24 11:34] LABS: Lipase 93 U/L (73-393)
--- NOTE | 2020-04-24 12:15 | DI.VRAD_ITS ---
PROCEDURE INFORMATION: Exam: CT Abdomen And Pelvis Without Contrast Exam date and time: 04/24/2020 11:37 AM Age: 34 years old Clinical indication: Abdominal pain; Generalized TECHNIQUE: Imaging protocol: Computed tomography of the abdomen and pelvis without contrast. COMPARISON: CT ABD PELVIS WO CONTRAST 05/23/2018 2:58 PM FINDINGS: Limitations: Evaluation is somewhat limited by lack of IV contrast. Lungs: The visualized lung bases are essentially clear. Liver: Grossly unremarkable. Gallbladder and bile ducts: No gallstones are evident, but ultrasound would be more sensitive. No gross biliary ductal dilatation. Pancreas: Grossly unremarkable. Spleen: Grossly unremarkable. Adrenals: Grossly unremarkable. Kidneys and ureters: Grossly unremarkable. No hydronephrosis or renal or ureteral calculus. Stomach and bowel: The unopacified small bowel is not significantly distended to suggest obstruction. There is probably focal wall thickening at the base of the cecum. The large bowel is otherwise grossly unremarkable in appearance. Appendix: The appendix appears normal where at least partially visualized, and there is no inflammatory change in the region. Intraperitoneal space: There is no free air. Small free fluid is present in the pelvis. Vasculature: The abdominal aorta is nonaneurysmal. Lymph nodes: No gross pathologic lymphadenopathy. Bladder: Grossly unremarkable. Reproductive: Unremarkable as visualized. Bones/joints: Degenerative changes again involve the spine. A large Schmorl's node is again present at L5. Soft tissues: Unremarkable. IMPRESSION: 1. Probable focal wall thickening at the base of the cecum, could reflect a nonspecific colitis, with pathology not excluded. Consider further evaluation and/or follow-up. The use of intravenous and oral contrast may be of benefit. 2. Small free fluid in the pelvis, could be reactive. 3. No hydronephrosis or renal or ureteral calculus. Dictated and Authenticated by: Bridger Javed MD. Ordering:NANDA Solorio MD
== END 2020-04-24 11:47 | disposition left against medical advice (07) ==
PROVIDERS: Emergency Provider Physician Assistant; PCP Family Medicine
DX: R10.13 Epigastric pain (principal)
CPT/HCPCS: 80053; 83690; 93005; 96361; 96374; 96375; 99285; 74176; 83735; 84484; 85025; 93010; J0131; J1885

== ENCOUNTER 2020-06-21 00:15 | Emergency (ER) | payer MEDICAID, SELFPAY ==
[2020-06-21 00:21] VITALS: BP 107/63; PULSE 112; RESP 16; TEMP 37.1; O2SAT 98
--- NOTE | 2020-06-21 00:35 | ED.GENADUL_ITS ---
Discharge Plan Disposition Patient Disposition: AGAINST MEDICAL ADVICE Condition: Poor Discharge Details Chief Complaint: Nausea/Vomit/Diar Clinical Impression: Headache, Nausea & vomiting Primary Care Provider: Angel Culp ED Provider: Bridger Valenzuela Home Meds and New Rx's Prescriptions: New ondansetron 4 mg tablet,disintegrating 4 mg PO Q8H PRN (Reason: nausea and vomiting) Qty: 30 RF: 0 Continued Vivitrol 380 mg Suspension,Extended Rel Recon 380 mg IM QMONTH RF: 0 ketorolac 10 mg Tablet 10 mg PO Q6H RF: 0 buprenorphine-naloxone [Suboxone] 4-1 mg film 1 film sublingual DAILY RF: 0 Discharge Instructions Instructions: Acute Nausea and Vomiting (ED) Additional Instructions: return to the emergency department if you feel more ill, have worsening pain or difficulty breathing return to the emergency department follow up with your primary care provider as soon as possible Stand Alone Forms: PENDING COVID-19 TESTING Medical Decision Making 34 yo male with hx of opiate abuse clean for a week per patient and was d/'c over the weekend from [facility] who comes in with cc of sudden n/v and headache starting 3 hours ago. Denies fevers, chills, has been using marijuana but not in past day per pt, no alcohol use, no severe abdominal pain or travel or sick contacts. Has stable gait, no focal motor or sensation deficits and no signs of trauma to the head though he does state he fell off a chair over the weekend at [facility] and unsure if he hit his head. CN II-XII are intact. Suspect this could be cannabinoid hyperemesis with dehydration causing his headache but given the head pain and fall will obtain ct to eval for sdh and tbi, less likely sah. Will also evaluate for pancreatitis, has no abdominal tenderness so doubt surgical pathology such as sbo, cholecystitis, pancreatitis pt declined any imaging and requested a covid19 test as his daughter was at a wedding this weekend and had multiple people there, unknown exposures. He wants covid19 test and d/c. He has capacity to make his own decisions and understands risks of leaving including and permanent disability and is willing to accept these risks and is clinically sober and no indication of being under the influence of the drugs or alcohol. HE understands he can return at any time if he changes his mind . he is leaving against medical advise labs returned while covid19 test being done and wbc was 19. I strongly recommended staying for ct and further monitoring and possible lp. He again declines and remains with capacity and understands risks of leaving including and disability. Differential Diagnosis Differential Diagnosis: sdh, tbi, gastroenteritis HPI General Mode of arrival: ambulatory . Date/Time Provider Initiated Documentation: 06/21/20 00:16 . Limitations to Documentation: no limitations . Information obtained by: patient . History of Present Illness 34 year old M presents to the emergency department with the chief complaint of headache, described as moderate, Patient started experiencing this hour(s) (3) and it has been constant. No relieving factors improve symptom(s), No exacerbating factors reported . Patient notes nausea/vomiting. Patient did receive the following treatments prior to arrival, none Related Data Home Medications Medication Instructions Recorded Confirmed Vivitrol 380 mg IM QMONTH 04/24/20 04/24/20 buprenorphine-naloxone [Suboxone] 1 film SUBLINGUAL DAILY 06/21/20 06/21/20 ketorolac 10 mg PO Q6H 06/21/20 06/21/20 ondansetron 4 mg PO Q8H PRN #30 tab 06/21/20 Previous Rx's Medication Instructions Recorded ondansetron 4 mg PO Q8H PRN #30 tab 06/21/20 Allergies Allergy/AdvReac Type Severity Reaction Status Date / Time Iodinated Contrast Media Allergy Unknown ITCHING Unverified 06/21/20 00:26 [Iodinated Contrast Media - Oral and] General Stated Complaint: Nausea/Vomit/Diar NADIRA: 3 Review of Systems All systems reviewed & are unremarkable except as noted in HPI and below Constitutional Constitutional: Denies chills, Denies fever(s) and Denies weakness ENT Ears, Nose, Mouth, and Throat: Denies change in voice Cardiovascular Cardiovascular: Denies chest pain and Denies dyspnea Respiratory Respiratory: Denies cough and Denies dyspnea Gastrointestinal Gastrointestinal: Denies abdominal pain Musculoskeletal Musculoskeletal: Denies joint swelling Neurologic Neurologic: Denies weakness Psychiatric Psychiatric: Denies depression [facility] Medical History (Updated 06/21/20 @ 00:53 by Bridger Valenzuela MD) Depression (Chronic) Hemorrhoids (Acute) Surgical History H/O hemorrhoidectomy (Chronic) Incision & Drainage, Abscess or Hematoma Hemorrhoid Social History Smoking/Tobacco Use Status: Current-Occasional Tobacco Type: cigarettes Alcohol Intake: never Drug use: Occasionally Substance use type: marijuana Do you feel safe at home: Yes Do you feel safe in your relationship?: Yes Exam Const General: no acute distress Orientation: alert HENMT Head: normal to inspection Ears: external ears normal General nose exam: external nose normal Mouth: moist mucous membranes Eyes General: appearance normal, both eyes and all related structures Neck Neck: normal visual inspection Resp Effort & Inspection: normal respiratory effort and able to speak in complete sentences Cardio Rate: regular rate GI Palpation: soft Skin General skin exam: no rashes or lesions noted Neuro General: patient alert and patient oriented x3 Extrem General: normal to inspection Psych Mental Status: mental status grossly normal Course Vital Signs Vital signs: Vital Signs Temperature 37.1 C 06/21/20 00:21 Pulse 112 H 06/21/20 00:21 Respiratory Rate 16 06/21/20 00:21 Blood Pressure 107/63 06/21/20 00:21 Pulse Oximetry 98 06/21/20 00:21 Temperature 37.1 C 06/21/20 00:21 Pulse 112 H 06/21/20 00:21 Respiratory Rate 16 06/21/20 00:21 Respiratory Effort Non-Labored 06/21/20 00:28 Blood Pressure 107/63 06/21/20 00:21 Pulse Oximetry 98 06/21/20 00:21 Oxygen Delivery Method Room Air 06/21/20 00:21 Oxygen Flow Rate 0 06/21/20 00:21 Pain Level 7 06/21/20 00:21
[2020-06-21 00:49] LABS: Abs Immature Grans 0.09 10^3/uL (0.0-0.06); Absolute Basophil Count 0.08 10^3/uL (0.0-0.2); Absolute Lymphocyte Count 1.35 10^3/uL (1.2-3.4); Absolute Monocyte Count 1.03 10^3/uL (0.1-0.8); Basophils % 0.4; HCT 44.7 % (40.0-50.0); HGB 14.5 g/dL (13.5-17.5); Immature Grans % 0.5; Lymphocytes % 7.1; MCH 27.7 pg (27.0-33.0); MCHC 32.4 % (32.0-36.0); MCV 85.5 fL (80-95); MPV 9.3 fL (8.0-11.0); Monocytes % 5.4; Neutrophils % 85.6; Nucleated RBC 0 %; Platelet Count 296 10^3/uL (130-400); RBC 5.23 10^6/uL (4.36-5.78); RDW 12.7 % (11.8-14.1); RDW-SD 39.7 fL; WBC 19.06 10^3/uL (4.4-10.8)
[2020-06-21 00:50] LABS: Absolute Eosinophil Count 0.19 10^3/uL (0.0-0.7); Absolute Neutrophil Count 16.32 10^3/uL (1.2-6.7)
[2020-06-21] MEDS: Prochlorperazine 10 MG/2 ML VIAL IVP (00:59)
[2020-06-21 01:02] LABS: INR 1.1 (0.9-1.1); PTT Activated 24.7 sec (21.0-31.4); Prothrombin Time 10.6 sec (9.3-11.0)
[2020-06-21 01:03] LABS: ALT 35 U/L (16-63); AST 19 U/L (15-37); Albumin 4.2 g/dL (3.4-5.0); Alkaline Phosphatase 62 U/L (46-116); Anion Gap 10.6 mmol/L (3-11); BUN 14 mg/dL (7-18); Bilirubin, Total 0.6 mg/dL (0.2-1.0); CO2 26.4 mmol/L (21.0-32.0); Calcium 9.1 mg/dL (8.5-10.1); Chloride 100 mmol/L (98-107); ETHANOL BLOOD < 3.0 mg/dL (<3); Glucose 125 mg/dL (74-106); Lipase 237 U/L (73-393); Magnesium 1.6 mg/dL (1.8-2.4); Potassium 4.1 mmol/L (3.5-5.1); Sodium 137 mmol/L (136-145); Total Protein 7.8 g/dL (6.4-8.2)
[2020-06-24 12:23] LABS: SARS-CoV-2 Specimen Source Nasopharynx
[2020-06-24 12:24] LABS: SARS-CoV-2 RNA Undetected (Undetected)
--- NOTE | 2020-06-26 08:18 | NUR.NOTE ---
Nursing Note: Contacted PT regarding negative COVID results. Spoke to PT directly over the phone to provide results.
== END 2020-06-21 01:10 | disposition left against medical advice (07) ==
PROVIDERS: Emergency Provider Emergency Medicine; PCP Family Medicine
DX: R51 Headache (principal); R11.2 Nausea with vomiting, unspecified; Z11.59 Encounter for screening for other viral diseases; Z53.29 Procedure and treatment not carried out because of patient's decision for other reasons
CPT/HCPCS: 80053; 83690; 96374; 99284; U0003; 80320; 83735; 85025; 85610; 85730; 99283; J0780

== ENCOUNTER 2020-08-30 11:18 | Outpatient (CLI) | payer MEDICAID, SELFPAY ==
[2020-09-03 06:28] LABS: Patient Race White; SARS-CoV-2 RNA Undetected (Undetected); SARS-CoV-2 Specimen Source Nasal
== END 2020-08-30 11:38 ==
PROVIDERS: PCP Nurse Practitioner Family; Visit Provider Nurse Practitioner Family
DX: R05 Cough (principal); Z20.828 Contact with and (suspected) exposure to other viral communicable diseases
CPT/HCPCS: U0003

== ENCOUNTER 2020-09-22 12:49 | Emergency (ER) | payer MEDICAID, SELFPAY ==
[2020-09-22 13:00] VITALS: BP 135/89; PULSE 84; RESP 16; TEMP 36.7; O2SAT 98
--- NOTE | 2020-09-22 13:15 | DI.RAD_ITS ---
EXAM: XR WRIST LT COMPLETE CLINICAL HISTORY: fall/pain TECHNIQUE: COMPARISON: No exams were available for comparison FINDINGS: Four views were obtained. There is no evidence of acute fracture or dislocation. Bony alignment is within normal limits. IMPRESSION: RADIATION DOSE DELIVERED: Total DLP Total DLP
--- NOTE | 2020-09-22 13:15 | DI.RAD_ITS ---
EXAM: XR FOREARM LT CLINICAL HISTORY: pain/fall. TECHNIQUE: 2D digital imaging was performed. COMPARISON: No exams were available for comparison FINDINGS: There is no evidence of fracture. No radiopaque foreign body. No osseous lesions. IMPRESSION: No fracture evident. DATA REPOSITORY: RADIATION DOSE DELIVERED:
--- NOTE | 2020-09-22 13:38 | ED.GENADUL_ITS ---
Discharge Plan Disposition Patient Disposition: HOME Condition: Stable Discharge Details Clinical Impression: Pain, wrist Primary Care Provider: Luis Antonio Cheung ED Provider: Bryan Quezada Home Meds and New Rx's Prescriptions: New naproxen [Naprosyn] 500 mg tablet 500 mg PO BID PRNQty: 20 RF: 0 Discharge Instructions Instructions: Wrist Injury (ED) Additional Instructions: Naprosyn as directed. Wear splint as needed, advance activity as tolerated. Rest, elevate, cool and/or warm compresses every 2 hours for 20 minutes. Please watch for new or worsening symptoms and return to the ER for any concerns. I have given you the name and number of our local orthopedic provider. If you are not doing significantly better in the next 5-7 days, I do recommend following up with orthopedics for outpatient reevaluation. Referrals: Main Perez MD [ [facility] STAFF PHYSICIAN] - Discharge Data Discharge Date/Time-TO BE ENTERED AT DEPARTURE: 09/22/20 14:50 Medical Decision Making 34-year-old gentleman who is right-hand dominant presents with a left wrist and forearm injury that he sustained approximately 2 weeks ago after a fall. Clinically he has diffuse discomfort over the dorsal aspect of the wrist and distal forearm, increasing pain with extension. Certainly appears to be more soft tissue in nature however given the duration of the symptoms and the initial trauma will obtain x-ray of the forearm and wrist. X-ray of wrist and forearm reviewed by me and then later confirmed by radiology as negative. Discussed x-ray findings with patient. Discussed treatment plans. Will place into a premade volar wrist splint, provide prescription for anti-inflammatory, recommend cool and/or warm compresses, and will provide orthopedic referral. Patient is comfortable with this plan and has no additional questions or concerns. Medical Records Medical records reviewed: Yes I reviewed the patient's medical records. HPI General Mode of arrival: ambulatory . Date/Time Provider Initiated Documentation: 09/22/20 13:24 . Limitations to Documentation: no limitations . Information obtained by: patient . HPI Narrative: This is a 34-year-old gentleman, right-hand dominant, presenting with a left wrist and forearm discomfort that occurred roughly 2 weeks ago. He states that he fell down in a sitting position with his left hand-wrist underneath him. He reports the pain is moderate, worse with movement. Denies numbness, tingling, weakness. He did trial [id number] anti-inflammatories but reports he took them on empty stomach, they upset his stomach, so he did not take again. He denies any other injuries from the fall. He denies any significant past medical history. Related Data Home Medications Medication Instructions Recorded Confirmed naproxen [Naprosyn] 500 mg PO BID PRN #20 tab 09/22/20 Previous Rx's Medication Instructions Recorded naproxen [Naprosyn] 500 mg PO BID PRN #20 tab 09/22/20 Allergies Allergy/AdvReac Type Severity Reaction Status Date / Time Iodinated Contrast Media Allergy Unknown ITCHING Verified 09/22/20 13:07 [Iodinated Contrast Media - Oral and] General Stated Complaint: Orthopedic NADIRA: 4 Review of Systems Constitutional Constitutional: Denies weakness Musculoskeletal Musculoskeletal: Reports arthralgias, Reports joint swelling, Denies numbness and Denies tingling Integumentary/Breasts Skin/Breast: Denies erythema Neurologic Neurologic: Denies numbness, Denies tingling and Denies weakness PFSH Medical History Allergic shiners (03/22/17) Chronic pain Depression hemorrhaging Post operative hemorrhaging Hemorrhoids Telangiectasia (03/22/17) Thrombosed hemorrhoids Surgical History H/O hemorrhoidectomy Incision & Drainage, Abscess or Hematoma Hemorrhoid Social History Smoking/Tobacco Use Status: Current-Occasional Tobacco Type: cigarettes Smoking risk assessment performed?: Yes Alcohol Intake: current Alcohol Intake frequency: a few times a month Drug use: Occasionally Substance use type: marijuana Do you feel safe at home: Yes Do you feel safe in your relationship?: Yes Exam Const General: cooperative, healthy appearing, comfortable and no acute distress Orientation: alert and awake [facility] Head: normal to inspection, normocephalic and atraumatic Mouth: moist mucous membranes Eyes General: appearance normal, both eyes and all related structures Conjunctivae: conjunctivae normal Sclera: sclerae normal Neck Neck: normal visual inspection, full ROM, trachea midline and supple Resp Effort & Inspection: normal respiratory effort and able to speak in complete sentences Cardio Rate: regular rate Rhythm: regular rhythm Skin General skin exam: no rashes or lesions noted Neuro General: patient alert, patient awake, moves all extremities and no focal motor deficits Motor: muscle tone normal throughout Sensory Exam: no sensory deficits noted Extrem Left upper extremity: normal capillary refill, elbow/forearm (Elbow unremarkable, full range of motion.) Details: tenderness (Distal forearm, dorsal aspect), swelling (Distal forearm, dorsal aspect), abnormal ROM (Full flexion, decreased extension secondary to discomfort) and distal pulses intact; no unusual warmth and no ecchymosis and wrist (Diffuse dorsal swelling, tenderness.) Details: abnormal to inspection, tenderness, swelling, abnormal ROM (Limited extension secondary to pain), normal vascular exam and radial pulse present; no unusual warmth and no ecchymosis Psych Appearance: grossly normal Mental Status: mental status grossly normal Course Vital Signs Vital signs: Vital Signs Temperature 36.7 C 09/22/20 13:00 Pulse 84 09/22/20 13:00 Respiratory Rate 16 09/22/20 13:00 Blood Pressure 135/89 09/22/20 13:00 Pulse Oximetry 98 09/22/20 13:00 Temperature 36.7 C 09/22/20 13:00 Temperature Source Temporal Artery Scan 09/22/20 13:00 Pulse 84 09/22/20 13:00 Respiratory Rate 16 09/22/20 13:00 Respiratory Effort Non-Labored 09/22/20 13:06 Blood Pressure 135/89 09/22/20 13:00 Blood Pressure Position Sitting 09/22/20 13:00 Pulse Oximetry 98 09/22/20 13:00 Oxygen Delivery Method Room Air 09/22/20 13:00 Oxygen Flow Rate 0 09/22/20 13:00 Pain Level 8 09/22/20 13:09
--- NOTE | 2020-09-27 07:32 | NUR.NOTE ---
Nursing Note: Opened chart to get the discharge diagnosis for [facility] form. Carmelina Tapia
== END 2020-09-22 14:50 | disposition home or self-care (01) ==
PROVIDERS: Emergency Provider Physician Assistant; PCP Nurse Practitioner Family
DX: M25.532 Pain in left wrist (principal); M79.632 Pain in left forearm; W19.XXXA Unspecified fall, initial encounter
CPT/HCPCS: 29125; 99284; 73090; 73110

== ENCOUNTER 2020-10-29 02:57 | Outpatient (CLI) | payer MEDICAID, SELFPAY ==
[2020-10-30 15:31] LABS: COVID-19 RT-PCR UVMMC Result Negative (Negative)
== END 2020-10-29 03:17 ==
PROVIDERS: PCP Nurse Practitioner Family; Visit Provider Nurse Practitioner Family
DX: Z11.52 Encounter for screening for COVID-19 (principal); Z01.818 Encounter for other preprocedural examination
CPT/HCPCS: U0003

== ENCOUNTER 2020-11-11 19:29 | Emergency (ER) | payer MEDICAID, SELFPAY ==
[2020-11-11 19:32] VITALS: BP 136/87; PULSE 116; RESP 20; TEMP 36.6; O2SAT 93
--- NOTE | 2020-11-11 19:42 | ED.GENADUL_ITS ---
Discharge Plan Disposition Patient Disposition: HOME Condition: Stable Discharge Details Clinical Impression: Crushing injury of left wrist Primary Care Provider: Luis Antonio Cheung ED Provider: Lucy Luke Home Meds and New Rx's Prescriptions: No Action naproxen [Naprosyn] 500 mg tablet 500 mg PO BID PRNQty: 20 RF: 0 Discharge Instructions Instructions: Wrist Sprain (ED), Crush Injury (ED) Additional Instructions: Rest, ice, compression, elevation. Please take Tylenol or Ibuprofen with food every 4-6 hours as needed for pain and swelling. Please return for any wo rsening swelling, worsening pain not relieved by Tylenol or ibuprofen or any problems with circulation. The x-rays today show no fracture and radiologist will reread it and we will notify you if there was any discrepancies. Follow up with primary care provider in 3-5 days. Return to ED sooner if any worsening or concerns. Increase oral fluids. Referrals: Luis Antonio Cheung, GEOLOGY SCIENTIST [Primary Care Provider] - Medical Decision Making 34-year-old male presents to the ED with chief complaint of left wrist and forearm tenderness after sustaining a crush type injury just prior to arrival. He states that he was working on his plow when his nephew inside the vehicle actually push button and a plow landed on his left wrist. No obvious deformity he does have tenderness over the distal radius and ulna and wrist area. Radial pulses and ulnar pulses intact. Cap refill less than 2 seconds. He does have full flexion and extension of his fingers. Did not take any medications prior to arrival. V rad reading as noted below Imaging protocol: XR Left wrist. Views: 3 or more views. COMPARISON: CR XR WRIST LT COMPLETE 09/22/2020 1:36 PM FINDINGS: Bones/joints: Bones and joints are intact. No fracture or dislocation. Normal osseous mineralization. Scapholunate interval and angle are appropriate. Soft tissues: Normal. IMPRESSION: Negative exam. No fracture. Thank you for allowing us to participate in the care of your patient Imaging protocol: XR Left forearm. Views: 2 views. COMPARISON: CR XR FOREARM LT 09/22/2020 1:35 PM FINDINGS: Bones/joints: Radius and ulna are intact. Wrist and elbow joints are grossly normal. Tiny olecranon spur. No fracture or dislocation. Normal osseous mineralization. Soft tissues: No soft tissue gas or radiopaque foreign body. IMPRESSION: No acute abnormality. Thank you for allowing us to participate in the care of your patient. Dictated and Authenticated by: Jose Aparicio MD Patient requesting to be discharged from the ER, was given a universal wrist splint prior to discharge. Instructed on home care and discussed strict return instructions to return if any increased swelling, pain not relieved by Tylenol or ibuprofen or any problems with circulation to the fingers. Patient v erbalized understanding. HPI General Mode of arrival: ambulatory . Date/Time Provider Initiated Documentation: 11/11/20 19:38 . Limitations to Documentation: no limitations . Information obtained by: patient . HPI Narrative: 34-year-old male presents to the ED with chief complaint of left wrist and forearm tenderness after sustaining a crush type injury just prior to arrival. He states that he was working on his plow when his nephew inside the vehicle actually push button and a plow landed on his left wrist. No obvious deformity he does have tenderness over the distal radius and ulna and wrist area. Radial pulses and ulnar pulses intact. Cap refill less than 2 seconds. He does have full flexion and extension of his fingers. Did not take any medications prior to arrival. Related Data Home Medications Medication Instructions Recorded Confirmed naproxen [Naprosyn] 500 mg PO BID PRN #20 tab 09/22/20 11/11/20 Previous Rx's Medication Instructions Recorded naproxen [Naprosyn] 500 mg PO BID PRN #20 tab 09/22/20 Allergies Allergy/AdvReac Type Severity Reaction Status Date / Time Iodinated Contrast Media Allergy Unknown ITCHING Verified 11/11/20 19:37 [Iodinated Contrast Media - Oral and] General Stated Complaint: Orthopedic NADIRA: 3 Review of Systems All systems reviewed & are unremarkable except as noted in HPI and below Musculoskeletal Musculoskeletal: Reports arthralgias (Left wrist) and Reports joint swelling PFSH Medical History Allergic shiners (03/22/17) Chronic pain Depression hemorrhaging Post operative hemorrhaging Hemorrhoids Telangiectasia (03/22/17) Thrombosed hemorrhoids Surgical History H/O hemorrhoidectomy Incision & Drainage, Abscess or Hematoma Hemorrhoid Social History (Reviewed 11/11/20 @ 19:44 by Lucy Pimentel Smoking/Tobacco Use Status: Current-Occasional Tobacco Type: cigarettes Smoking risk assessment performed?: Yes Alcohol Intake: current Alcohol Intake frequency: a few times a month Drug use: Occasionally Substance use type: marijuana Current gender identity: male Do you feel safe at home: Yes Do you feel safe in your relationship?: Yes Exam Extrem Left upper extremity: normal capillary refill, elbow/forearm Details: tenderness; no penetrating wound and no deformity and wrist Details: tenderness, swelling and radial pulse present; no penetrating wound and no deformity Elbow/forearm/wrist images: 1. Tenderness Course Vital Signs Vital signs: Vital Signs Temperature 36.6 C 11/11/20 19:32 Pulse 116 H 11/11/20 19:32 Respiratory Rate 20 11/11/20 19:32 Blood Pressure 136/87 11/11/20 19:32 Pulse Oximetry 93 11/11/20 19:32 Temperature 36.6 C 11/11/20 19:32 Temperature Source Skin 11/11/20 19:32 Pulse 116 H 11/11/20 19:32 Respiratory Rate 20 11/11/20 19:32 Respiratory Effort Non-Labored 11/11/20 19:34 Blood Pressure 136/87 11/11/20 19:32 Blood Pressure Position Sitting 11/11/20 19:32 Pulse Oximetry 93 11/11/20 19:32 Oxygen Delivery Method Room Air 11/11/20 19:32 Oxygen Flow Rate 0 11/11/20 19:32 Pain Level 8 11/11/20 19:37
[2020-11-11] MEDS: Ibuprofen 800 MG TAB PO (19:45)
--- NOTE | 2020-11-11 19:55 | DI.RAD_ITS ---
EXAM: XR WRIST LT COMP NAVICULAR and XR forearm LT CLINICAL HISTORY: Crush injury, R/O fracture. TECHNIQUE: 2D digital imaging was performed. COMPARISON: CR XR WRIST LT COMPLETE from 09/22/2020 CR,XR XR FOREARM LT from 11/11/2020 FINDINGS: BONES: No acute fracture is present. No bony destructive lesion is seen. JOINTS: The carpal bones are normally aligned. SOFT TISSUE: Normal. IMPRESSION: No acute fracture or dislocation of the left wrist or forearm. DATA REPOSITORY: RADIATION DOSE DELIVERED:
--- NOTE | 2020-11-11 20:12 | DI.VRAD_ITS ---
PROCEDURE INFORMATION: Exam: XR Left Forearm Exam date and time: 11/11/2020 7:57 PM Age: 34 years old Clinical indication: Pain; Lower or forearm; Left TECHNIQUE: Imaging protocol: XR Left forearm. Views: 2 views. COMPARISON: CR XR FOREARM LT 09/22/2020 1:35 PM FINDINGS: Bones/joints: Radius and ulna are intact. Wrist and elbow joints are grossly normal. Tiny olecranon spur. No fracture or dislocation. Normal osseous mineralization. Soft tissues: No soft tissue gas or radiopaque foreign body. IMPRESSION: No acute abnormality. Dictated and Authenticated by: Jose Aparicio MD. Ordering:BARNEY Ayala MD
--- NOTE | 2020-11-11 20:13 | DI.VRAD_ITS ---
PROCEDURE INFORMATION: Exam: XR Left Wrist Exam date and time: 11/11/2020 7:57 PM Age: 34 years old Clinical indication: Patient HX: Trauma to left wrist crush injury, navicular pain. TECHNIQUE: Imaging protocol: XR Left wrist. Views: 3 or more views. COMPARISON: CR XR WRIST LT COMPLETE 09/22/2020 1:36 PM FINDINGS: Bones/joints: Bones and joints are intact. No fracture or dislocation. Normal osseous mineralization. Scapholunate interval and angle are appropriate. Soft tissues: Normal. IMPRESSION: Negative exam. No fracture. Dictated and Authenticated by: Jose Aparicio MD. Ordering:BARNEY Ayala MD
[2020-11-11 20:21] VITALS: PULSE 110; O2SAT 97
== END 2020-11-11 20:23 | disposition home or self-care (01) ==
PROVIDERS: Emergency Provider Registered Nurse Emergency; PCP Nurse Practitioner Family
DX: S67.32XA Crushing injury of left wrist, initial encounter (principal); M25.532 Pain in left wrist; W23.0XXA Caught, crushed, jammed, or pinched between moving objects, initial encounter
CPT/HCPCS: 29125; 99283; 73090; 73110

== ENCOUNTER 2021-01-25 15:35 | Emergency (ER) | payer MEDICAID, SELFPAY ==
[2021-01-25 16:08] VITALS: BP 117/67; PULSE 75; TEMP 36.6; O2SAT 98
--- NOTE | 2021-01-25 16:15 | DI.RAD_ITS ---
EXAM: XR PORTABLE CHEST AP CLINICAL HISTORY: PUI, R/O Pnuemonia, productive cough TECHNIQUE: 2D digital imaging was performed. COMPARISON: CR LEFT SHOULDER COMPLETE from 11/29/2017 FINDINGS: LUNGS: Clear. No pleural abnormality seen. HEART: Normal. MEDIASTINUM: Normal. BONES: Unremarkable. IMPRESSION: No acute pulmonary findings. DATA REPOSITORY: RADIATION DOSE DELIVERED:
[2021-01-25 16:33] VITALS: RESP 16
[2021-01-25 16:33] LABS: Abs Immature Grans 0.01 10^3/uL (0.0-0.06); Absolute Eosinophil Count 0.34 10^3/uL (0.0-0.7); Absolute Lymphocyte Count 3.12 10^3/uL (1.2-3.4); Absolute Monocyte Count 0.75 10^3/uL (0.1-0.8); Absolute Neutrophil Count 3.96 10^3/uL (1.2-6.7); Basophils % 1.2; Eosinophils % 4.1; HCT 41.9 % (40.0-50.0); HGB 13.6 g/dL (13.5-17.5); Immature Grans % 0.1; Lymphocytes % 37.7; MCH 28.1 pg (27.0-33.0); MCHC 32.5 % (32.0-36.0); MCV 86.6 fL (80-95); MPV 9.4 fL (8.0-11.0); Monocytes % 9.1; Neutrophils % 47.8; Nucleated RBC 0 %; Platelet Count 301 10^3/uL (130-400); RBC 4.84 10^6/uL (4.36-5.78); RDW 13.2 % (11.8-14.1); RDW-SD 41.4 fL; WBC 8.28 10^3/uL (4.4-10.8)
[2021-01-25] MEDS: Normal Saline 1,000 ML 1000 ML IV (16:33)
[2021-01-25] MEDS: Normal Saline Flush 10 ML SYR IVP (16:33)
--- NOTE | 2021-01-25 16:38 | ED.GENADUL_ITS ---
Discharge Plan Disposition Patient Disposition: HOME Condition: Stable Discharge Details Clinical Impression: Upper respiratory infection, viral Primary Care Provider: Patrick Stanford ED Provider: Lucy Luke Home Meds and New Rx's Prescriptions: New benzonatate [Tessalon Perles] 100 mg capsule 100 mg PO BID PRN (Reason: cough) Qty: 14 RF: 0 No Action acetaminophen [Tylenol Extra Strength] 500 mg Capsule 1,000 mg PO Q6H PRNRF: 0 Discharge Instructions Instructions: Upper Respiratory Infection (ED) Additional Instructions: The chest x-ray today was negative for pneumonia your Covid swab was also negative. At this time you may have a upper respiratory infection. Follow up with primary care provider in 3-5 days. Return to ED sooner if any worsening or concerns. Increase oral fluids. Please take Tylenol or Ibuprofen with food every 4-6 hours as needed for pain and swelling. Use the inhaler once or twice a day as needed to open up the airways, Tessalon Perles for cough. Stand Alone Forms: Work Release Referrals: Patrick Stanford [Primary Care Provider] - Discharge Data Discharge Date/Time-TO BE ENTERED AT DEPARTURE: 01/25/21 18:56 Medical Decision Making 35-year-old male who appears generally ill presents to the ER with chief complaint of yellow productive cough since Sunday, fever, chills, sore throat, body ache and loss of smell. He denies any sick contact or any recent travel except to [place] for work. 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 He also reports some left lower quadrant abdominal pain. He did take some Tylenol around 1500 today. He is speaking in full sentences, no muffled voice O2 sat on room air is 96 to 98% CBC CMP Covid test strep swab all negative and within normal limits. Chest x- ray as noted below. TECHNIQUE: Imaging protocol: XR of the chest Views: 1 view. COMPARISON: CR CHEST ONE VIEW IN RAD DEPT 02/05/2015 11:19 PM FINDINGS: Lungs: Clear lungs. Pleural spaces: No pneumothorax. No sizable pleural effusion. Heart/Mediastinum: No cardiomegaly. Bones/joints: Unremarkable. IMPRESSION: Clear lungs. Discussed results with patient who verbalized understanding at this time I do feel it is viral URI versus seasonal allergies. Discussed home care. Was given 2 puffs of albuterol inhaler to go home with dexamethasone here in department. I did prescribe some Tessalon Perles for patient he was instructed to increase oral fluids and follow-up with PCP. HPI General Mode of arrival: ambulatory . Date/Time Provider Initiated Documentation: 01/25/21 16:18 . Limitations to Documentation: no limitations . Information obtained by: patient . HPI Narrative: 35-year-old male who appears generally ill presents to the ER with chief complaint of yellow productive cough since Sunday, fever, chills, sore throat, body ache and loss of smell. He denies any sick contact or any recent travel except to [place] for work. 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 He also reports some left lower quadrant abdominal pain. He did take some Tylenol around 1500 today. He is speaking in full sentences, no muffled voice O2 sat on room air is 96 to 98%. Related Data Home Medications Medication Instructions Recorded Confirmed acetaminophen [Tylenol Extra 1,000 mg PO Q6H PRN 01/25/21 01/25/21 Strength] benzonatate [Tessalon Perles] 100 mg PO BID PRN #14 cap 01/25/21 Previous Rx's Medication Instructions Recorded benzonatate [Tessalon Perles] 100 mg PO BID PRN #14 cap 01/25/21 Allergies Allergy/AdvReac Type Severity Reaction Status Date / Time Iodinated Contrast Media Allergy Unknown ITCHING Verified 01/25/21 16:13 [Iodinated Contrast Media - Oral and] General Stated Complaint: GenMedical NADIRA: 3 Review of Systems Narrative: Constitutional: Negative for weight loss, alert and oriented, well groomed, normal body habitus, appears uncomfortable. Positive myalgias fever, chills. HEENT: Denies trauma, trouble swallowing. Positive sore throat, loss of smell. Chest: Denies chest pain, palpitations, irregular rhythm, hypertension. Respiratory: Positive yellow productive cough, GI: Denies nausea, vomiting, diarrhea, constipation. Positive upper quadrant abdominal pain : Denies dysuria, hematuria, flank pain, rectal bleeding. Neuro: Denies dizziness, blurry vision, weakness, syncope, headache or facial numbness. Hematologic: Denies easy bruising, intolerance to heat or cold, hair loss. [facility] Medical History Allergic shiners (03/22/17) Chronic pain Depression hemorrhaging Post operative hemorrhaging Hemorrhoids Telangiectasia (03/22/17) Thrombosed hemorrhoids Surgical History H/O hemorrhoidectomy Incision & Drainage, Abscess or Hematoma Hemorrhoid Social History Smoking/Tobacco Use Status: Current-Occasional Tobacco Type: cigarettes Smoking risk assessment performed?: Yes Alcohol Intake: current Alcohol Intake frequency: a few times a month Drug use: Occasionally Substance use type: marijuana Current gender identity: male Do you feel safe at home: Yes Do you feel safe in your relationship?: Yes Exam Narrative Exam Narrative: Constitutional: Alert and oriented x3. Appears stated age. Normal body habitus. Head: Normocephalic, no trauma. Eyes: Pupils PERRLA, Red reflex noted, EOM's intact. Eyelids symmetrical without lesions, discharge, or swelling. ENT: Bilateral TM's WNL, External ear normal to inspection, no mastoid TTP, swelling, or erythema, Nasal turbinates WNL, no nasal discharge. Normal dentition, Posterior pharynx erythemic tonsils 2+ bilaterally, no exudate. Chest: RRR, Normal S1, S2, distal pulses intact. Resp: Lungs clear to auscultation bilaterally, no wheezes, rales, or rhonchi. Musculoskeletal: Normal gait, 5/5 strength to all four extremities. Skin: No suspicious rashes or lesions. Capillary refill less than 2 sec. Neurologic: Cranial nerves II-XII intact. Alert and oriented x 3. DTR's intact. Hematologic/Lymphatic: No ecchymosis, no lymphadenopathy. Course Vital Signs Vital signs: Vital Signs Temperature 36.6 C 01/25/21 16:08 Pulse 75 01/25/21 16:08 Blood Pressure 117/67 01/25/21 16:08 Pulse Oximetry 98 01/25/21 16:08 Temperature 36.6 C 01/25/21 16:08 Pulse 75 01/25/21 16:08 Respiratory Rate 16 01/25/21 16:33 Respiratory Effort Non-Labored 01/25/21 16:33 Respiratory Depth Normal 01/25/21 16:33 Respiratory Pattern Normal 01/25/21 16:33 Blood Pressure 117/67 01/25/21 16:08 Blood Pressure Position Sitting 01/25/21 16:08 Pulse Oximetry 98 01/25/21 16:08 Oxygen Delivery Method Room Air 01/25/21 16:08 Oxygen Flow Rate 0 01/25/21 16:08 Pain Level 8 01/25/21 16:08 Lab/Test Results Lab/Test Results: 01/25/21 16:18 Blood Blood Culture - Pending 01/25/21 16:18 Blood Blood Culture - Pending Laboratory Tests Range/Units 01/25/21 16:18 COVID-19 Source Nasopharyx
[2021-01-25 17:08] LABS: ALT 34 U/L (16-63); AST 14 U/L (15-37); Albumin 3.7 g/dL (3.4-5.0); Alkaline Phosphatase 64 U/L (46-116); Anion Gap 8.4 mmol/L (3-11); BUN 12 mg/dL (7-18); Bilirubin, Total 0.3 mg/dL (0.2-1.0); CO2 29.6 mmol/L (21.0-32.0); CREATININE 0.9 mg/dL (0.70-1.30); Calcium 8.5 mg/dL (8.5-10.1); Chloride 104 mmol/L (98-107); Glucose 103 mg/dL (74-106); Potassium 3.6 mmol/L (3.5-5.1); Sodium 142 mmol/L (136-145); Total Protein 7.1 g/dL (6.4-8.2)
[2021-01-25 17:13] LABS: COVID-19 PCR Negative (Negative)
--- NOTE | 2021-01-25 17:45 | DI.VRAD_ITS ---
PROCEDURE INFORMATION: Exam: XR Chest Exam date and time: 01/25/2021 4:22 PM Age: 35 years old Clinical indication: Pui, R/O pnuemonia, productive cough TECHNIQUE: Imaging protocol: XR of the chest Views: 1 view. COMPARISON: CR CHEST ONE VIEW IN RAD DEPT 02/05/2015 11:19 PM FINDINGS: Lungs: Clear lungs. Pleural spaces: No pneumothorax. No sizable pleural effusion. Heart/Mediastinum: No cardiomegaly. Bones/joints: Unremarkable. IMPRESSION: Clear lungs. Dictated and Authenticated by: Elvis Pena MD. Ordering:BARNEY Ayala MD
[2021-01-25] MEDS: Dexamethasone 10 MG/ML VIAL PO (18:05)
[2021-01-25] MEDS: Inhaler, Assist Device 1 EACH MC (18:05)
[2021-01-25] MEDS: Albuterol HFA 8 GM 60 PUFF INH IH (18:05)
[2021-01-25 18:11] VITALS: O2SAT 98
== END 2021-01-25 18:56 | disposition home or self-care (01) ==
PROVIDERS: Emergency Provider Registered Nurse Emergency; PCP Physician Assistant
DX: J02.8 Acute pharyngitis due to other specified organisms (principal); J06.9 Acute upper respiratory infection, unspecified; B34.9 Viral infection, unspecified; Z03.818 Encounter for observation for suspected exposure to other biological agents ruled out
CPT/HCPCS: 36415; 80053; 87040; 87635; 87880; 96360; 96361; 99284; 71045; 85025; 87081; J1100

== ENCOUNTER 2021-06-06 14:49 | Emergency (ER) | payer MEDICAID, SELFPAY ==
[2021-06-06 14:56] VITALS: BP 126/72; PULSE 81; RESP 20; TEMP 36.2; O2SAT 95
--- NOTE | 2021-06-06 15:19 | ED.GENADUL_ITS ---
Discharge Plan Disposition Patient Disposition: AGAINST MEDICAL ADVICE Condition: Stable Discharge Details Clinical Impression: Viral illness Primary Care Provider: Patrick Stanford ED Provider: Lucy Luke Home Meds and New Rx's Prescriptions: No Action acetaminophen [Tylenol Extra Strength] 500 mg Capsule 1,000 mg PO Q6H PRNRF: 0 benzonatate [Tessalon Perles] 100 mg capsule 100 mg PO BID PRN (Reason: cough) Qty: 14 RF: 0 Discharge Instructions Instructions: Viral Syndrome (ED) Additional Instructions: At this time you have opted to leave AGAINST MEDICAL ADVICE prior to the work-up being completed. Please return to the ER for any worsening and completion of work-up. You may also consider getting tested for Covid as an outpatient at a [facility]. Follow up with primary care provider in 3-5 days. Return to ED sooner if any worsening or concerns. Increase oral fluids. Referrals: Patrick Stanford [Primary Care Provider] - Discharge Data Discharge Date/Time-TO BE ENTERED AT DEPARTURE: 06/06/21 15:29 Medical Decision Making 35-year-old male presents to the ER with multiple complaints including body aches, cough, fever 101, and diarrhea which began over the last 24 hours. He has been vaccinated for Covid and take the Pasha & Pasha. He has been taking Tylenol. However upon arrival to my examination he reports that he has an appointment that he cannot miss in approximately 20minutes. Patient opted to leave without further work-up. I did encourage him to stay but patient declined at this time. Covid swab ordered, chest x-ray and Zofran ODT, however patient did not receive any treatment while here as he opted to leave prior to completion of work-up. Patient left AMA. Patient requesting to leave AMA. The patient appears clinically sober and is not under the influence of any known substances. Discussed risks and benefits with patient. Patient verbalizes understanding of situation and the risks of leaving including worsening condition, developing disability, including but not limited to . Discussed results of labs and imaging, if they were performed and recommendations for further treatment and/or observation. The patient verbalizes understanding of the results discussed. At this time patient has opted to leave against medical advice. Patient is alert and oriented and has the capacity to make own decisions. HPI General Mode of arrival: ambulatory . Date/Time Provider Initiated Documentation: 06/06/21 14:58 . Limitations to Documentation: no limitations . Information obtained by: patient and RN notes reviewed . HPI Narrative: 35-year-old male presents to the ER with multiple complaints including body aches, cough, fever 101, and diarrhea which began over the last 24 hours. He has been vaccinated for Covid and take the Pasha & Pasha. He has been taking Tylenol. However upon arrival to my examination he reports that he has an appointment that he cannot miss in approximately 20minutes. Patient opted to leave without further work-up. I did encourage him to stay but patient declined at this time. Related Data Home Medications Medication Instructions Recorded Confirmed acetaminophen [Tylenol Extra 1,000 mg PO Q6H PRN 01/25/21 06/06/21 Strength] benzonatate [Tessalon Perles] 100 mg PO BID PRN #14 cap 01/25/21 06/06/21 Previous Rx's Medication Instructions Recorded benzonatate [Tessalon Perles] 100 mg PO BID PRN #14 cap 01/25/21 Allergies Allergy/AdvReac Type Severity Reaction Status Date / Time Iodinated Contrast Media Allergy Unknown ITCHING Verified 06/06/21 14:59 [Iodinated Contrast Media - Oral and] General Stated Complaint: GenMedical NADIRA: 3 Review of Systems All systems reviewed & are unremarkable except as noted in HPI and below Constitutional Constitutional: Reports body ache(s), Reports chills, Reports fatigue, Reports fever(s), Reports lethargy and Reports other (loss of taste) Respiratory Respiratory: Reports cough Gastrointestinal Gastrointestinal: Reports diarrhea Musculoskeletal Musculoskeletal: Reports myalgias Endocrine Endocrine: Reports fatigue [facility] Medical History Allergic shiners (03/22/17) Chronic pain Depression hemorrhaging Post operative hemorrhaging Hemorrhoids Telangiectasia (03/22/17) Thrombosed hemorrhoids Surgical History H/O hemorrhoidectomy Incision & Drainage, Abscess or Hematoma Hemorrhoid Social History Smoking/Tobacco Use Status: Current-Occasional Tobacco Type: cigarettes Smoking risk assessment performed?: Yes Alcohol Intake: current Alcohol Intake frequency: a few times a month Drug use: Occasionally Substance use type: marijuana Current gender identity: male Do you feel safe at home: Yes Do you feel safe in your relationship?: Yes Exam Narrative Exam Narrative: Constitutional: Alert and oriented x3. Appears stated age. Normal body habitus. Head: Normocephalic, no trauma. Eyes: Pupils PERRLA, Red reflex noted, EOM's intact. Eyelids symmetrical without lesions, discharge, or swelling. ENT: Bilateral TM's WNL, External ear normal to inspection, no mastoid TTP, swelling, or erythema, Nasal turbinates WNL, no nasal discharge. Normal dentition, Posterior pharynx WNL, no exudate. Chest: RRR, Normal S1, S2, distal pulses intact. Resp: Lungs clear to auscultation bilaterally, no wheezes, rales, or rhonchi. Musculoskeletal: Normal gait, 5/5 strength to all four extremities. Skin: No suspicious rashes or lesions. Capillary refill less than 2 sec. Neurologic: Cranial nerves II-XII intact. Alert and oriented x 3. DTR's intact. Hematologic/Lymphatic: No ecchymosis, no lymphadenopathy. Course Vital Signs Vital signs: Vital Signs Temperature 36.2 C L 06/06/21 14:56 Pulse 81 06/06/21 14:56 Respiratory Rate 20 06/06/21 14:56 Blood Pressure 126/72 06/06/21 14:56 Pulse Oximetry 95 06/06/21 14:56 Temperature 36.2 C L 06/06/21 14:56 Temperature Source Skin 06/06/21 14:56 Pulse 81 06/06/21 14:56 Respiratory Rate 20 06/06/21 14:56 Respiratory Effort Non-Labored 06/06/21 15:01 Respiratory Depth Normal 06/06/21 15:01 Respiratory Pattern Normal 06/06/21 15:01 Blood Pressure 126/72 06/06/21 14:56 Blood Pressure Position Supine 06/06/21 14:56 Pulse Oximetry 95 06/06/21 14:56 Oxygen Delivery Method Room Air 06/06/21 14:56 Oxygen Flow Rate 0 06/06/21 14:56 Pain Level 3 06/06/21 14:56
== END 2021-06-06 15:29 | disposition left against medical advice (07) ==
PROVIDERS: Emergency Provider Registered Nurse Emergency; PCP Physician Assistant
DX: R05 Cough (principal); B34.9 Viral infection, unspecified; R50.9 Fever, unspecified; Z53.29 Procedure and treatment not carried out because of patient's decision for other reasons
CPT/HCPCS: 87635; 99281

== ENCOUNTER 2021-06-22 18:21 | Observation (INO) | payer OTHER, SELFPAY ==
[2021-06-22] VITALS (51 sets, daily range): BP systolic 112–123; BP diastolic 57–75; PULSE 46–62; RESP 12–24; TEMP 36.6–36.7; O2SAT 95–100
--- NOTE | 2021-06-22 18:30 | DI.CT_ITS ---
Exam(s) CT HEAD WO EXAM: CT HEAD WO CLINICAL HISTORY: fall, syncope, hit head. TECHNIQUE: Imaging Protocol: Axial computed tomography images with coronal and sagittal reformatted images were created and reviewed COMPARISON: CT HEAD WITHOUT CONTRAST from 05/23/2018 FINDINGS: Ventricles and Extra axial spaces: Normal in size and morphology for the patient's age. Hemorrhage: None. Cerebral parenchyma: Normal. Midline shift: None. Brainstem/Cerebellum: Normal. Calvarium: Normal. Visualized Paranasal sinuses/Mastoids: Clear. Soft Tissues: Unremarkable. IMPRESSION: No acute intracranial process. RADIATION DOSE DELIVERED: 853.7mGy.cm Total DLP DATA REPOSITORY: All CT scans at this facility are submitted to the National Radiology Data Registry (NRDR) Dose Index Registry (DIR) with the [employer] ([employer]). RADIATION OPTIMIZATION: All CT scans at this facility use at least one of these dose optimization te chniques: automated exposure control; mA and/or kV adjustment per patient size (includes targeted exa ms where dose is matched to clinical indication); or iterative reconstruction.
--- NOTE | 2021-06-22 18:30 | RT.EKG_ITS ---
APPROVED REPORT Exam: Resting ECG Reason for Exam: syncope Patient Location: E HR:57 bpm ECG Measurements Heart Rate 57 AXIS ND 161 P 50 QRSd 161 QRS 90 QT 499 T 38 QTc 488 Conclusion Sinus bradycardia...rate< 60 RBBB and LPFB...QRSd >120mS, axis(90,210)
[2021-06-22 19:13] LABS: Abs Immature Grans 0.03 10^3/uL (0.0-0.06); Absolute Eosinophil Count 0.25 10^3/uL (0.0-0.7); Absolute Lymphocyte Count 2.66 10^3/uL (1.2-3.4); Absolute Monocyte Count 0.64 10^3/uL (0.1-0.8); Absolute Neutrophil Count 5.48 10^3/uL (1.2-6.7); Basophils % 1.1; Eosinophils % 2.7; HCT 41.3 % (40.0-50.0); HGB 13.4 g/dL (13.5-17.5); Immature Grans % 0.3; MCH 27.7 pg (27.0-33.0); MCHC 32.4 % (32.0-36.0); MCV 85.3 fL (80-95); MPV 9.8 fL (8.0-11.0); Neutrophils % 59.9; Nucleated RBC 0 %; Platelet Count 287 10^3/uL (130-400); RBC 4.84 10^6/uL (4.36-5.78); RDW 12.2 % (11.8-14.1); RDW-SD 38.3 fL; WBC 9.16 10^3/uL (4.4-10.8)
[2021-06-22] MEDS: Acetaminophen 325 MG TAB 650 MG PO ×2 (19:15→22:54)
[2021-06-22] MEDS: Ondansetron 4 MG/2 ML VIAL IVP (19:15)
[2021-06-22 19:27] LABS: ALT 21 U/L (16-63); AST 10 U/L (15-37); Albumin 3.9 g/dL (3.4-5.0); Alkaline Phosphatase 54 U/L (46-116); Anion Gap 3.8 mmol/L (3-11); BUN 17 mg/dL (7-18); Bilirubin, Total 0.3 mg/dL (0.2-1.0); CO2 32.2 mmol/L (21.0-32.0); CREATININE 1.1 mg/dL (0.70-1.30); Calcium 8.8 mg/dL (8.5-10.1); Chloride 104 mmol/L (98-107); Glucose 87 mg/dL (74-106); Potassium 3.6 mmol/L (3.5-5.1); Sodium 140 mmol/L (136-145); Total Protein 7.3 g/dL (6.4-8.2)
[2021-06-22 19:35] LABS: TSH (W/Ref FT4) 0.56 uIU/mL (0.36-3.74)
[2021-06-22 19:36] LABS: Troponin I < 0.05 ng/mL (<0.06)
--- NOTE | 2021-06-22 20:07 | NUR.NOTE ---
patient to CT and back while maintaining C-spine precautions. nausea improved and headache still present, lights dimmed. Nursing Note:
--- NOTE | 2021-06-22 20:11 | DI.VRAD_ITS ---
PROCEDURE INFORMATION: Exam: CT Head Without Contrast Exam date and time: 06/22/2021 6:34 PM Age: 35 years old Clinical indication: Other: Fall, syncope, hit head TECHNIQUE: Imaging protocol: Computed tomography of the head without contrast. Radiation optimization: All CT scans at this facility use at least one of these dose optimization techniques: automated exposure control; mA and/or kV adjustment per patient size (includes targeted exams where dose is matched to clinical indication); or iterative reconstruction. COMPARISON: CT HEAD WITHOUT CONTRAST 05/23/2018 2:48 PM FINDINGS: Brain: Small posterior fossa arachnoid cyst. No hemorrhage. Unremarkable white matter. No mass effect. Cerebral ventricles: No ventriculomegaly. Paranasal sinuses: Visualized sinuses are unremarkable. No fluid levels. Mastoid air cells: Visualized mastoid air cells are well aerated. Bones/joints: Rightward nasal septal deviation and spur. No acute fracture. Soft tissues: Unremarkable. IMPRESSION: No acute abnormality. Dictated and Authenticated by: Jose Aparicio MD. Ordering:MILE Narvaez MD
--- NOTE | 2021-06-22 20:20 | W.ED.GENAD ---
Discharge Plan Disposition Patient Disposition: [facility] INPATIENT Condition: Serious Discharge Details Clinical Impression: Syncope, Concussion Primary Care Provider: Patrick Stanford ED Provider: Brice Mukherjee Home Meds and New Rx's Prescriptions: No Action acetaminophen [Tylenol Extra Strength] 500 mg Capsule 1,000 mg PO Q6H PRNRF: 0 buprenorphine-naloxone [Suboxone] 8-2 mg film 2 film sublingual DAILY RF: 0 trazodone 100 mg Tablet 100 mg PO QHS RF: 0 Medical Decision Making 2038??35-year-old incarcerated male presents after unwitnessed syncopal episode with head injury. Patient does have headache. Neurologically intact. Hemodynamically stable. 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 Consider electrolyte abnormalities. Labs reviewed and nondiagnostic. CT consider acute life-threatening intracranial traumatic hemorrhage with head trauma and loss of consciousness with persistent headache. CT of the head was performed and interpreted by radiology: No acute abnormality. C-spine was cleared by me. Unclear etiology for loss of consciousness. Consider syncope versus seizure versus other. Plan to admit for observation and continued cardiac monitoring. --I spoke with Dr. Kingsley, discussed ED presentation course including diagnostics, he will admit the patient. HPI General Mode of arrival: ambulatory. Date/Time Provider Initiated Documentation: 06/22/21 18:30. Limitations to Documentation: no limitations. Information obtained by: patient. HPI Narrative: 35-year-old male presents with chief complaint of syncope. Patient notes that he remembers sitting on his bed and then waking up on the floor with [facility] staff around him. History limited secondary to altered mental status during the episode. Currently patient had unwitnessed syncope. No associated chest pain or shortness of breath. He does note that he has had nausea and loose stool since tapering off Suboxone. He believes he was tapered too quickly over the past week since incarceration. Patient does have headache. He believes he struck his head during the fall. He denies neck pain. No associated visual changes, numbness or weakness. Patient last used IV drugs about a week ago. Related Data Home Medications Medication Instructions Recorded Confirmed acetaminophen [Tylenol Extra 1,000 mg PO Q6H PRN 01/25/21 06/22/21 Strength] buprenorphine-naloxone [Suboxone] 2 film SUBLINGUAL DAILY 06/22/21 06/22/21 trazodone 100 mg PO QHS 06/22/21 06/22/21 Allergies Allergy/AdvReac Type Severity Reaction Status Date / Time Iodinated Contrast Media Allergy Unknown ITCHING Verified 06/22/21 19:58 [Iodinated Contrast Media - Oral and] General Stated Complaint: HeadInjury NADIRA: 3 Review of Systems All systems reviewed & are unremarkable except as noted in HPI and below Constitutional Constitutional: Denies fever(s) Cardiovascular Cardiovascular: Denies chest pain and Denies dyspnea Respiratory Respiratory: Denies dyspnea PFSH Medical History Allergic shiners (03/22/17) Chronic pain Depression hemorrhaging Post operative hemorrhaging Hemorrhoids Telangiectasia (03/22/17) Thrombosed hemorrhoids Surgical History H/O hemorrhoidectomy Incision & Drainage, Abscess or Hematoma Hemorrhoid Social History Smoking/Tobacco Use Status: Current-Occasional Tobacco Type: cigarettes Smoking risk assessment performed?: Yes Alcohol Intake: current Alcohol Intake frequency: a few times a month Drug use: Occasionally Substance use type: marijuana Current gender identity: male Do you feel safe at home: Yes Do you feel safe in your relationship?: Yes Exam Const General: cooperative and no acute distress HENMT Mouth: moist mucous membranes Eyes Conjunctivae: normal conjunctivae Sclera: normal sclerae Neck Neck: full ROM, trachea midline, supple and nontender Resp Auscultation: clear to auscultation bilaterally, no rales, no rhonchi and no wheezes Cardio Rate: regular rate and not tachycardic Rhythm: regular rhythm GI Palpation: soft, not firm, no guarding, no masses, not rigid and nontender Skin General skin exam: no rashes or lesions noted Neuro General: patient alert, patient awake, patient oriented x3 and tone normal Cranial Nerves: PERRL, accommodation normal, EOM intact bilaterally, no nystagmus, facial strength normal, tongue midline, hearing normal, able to rotate head bilaterally and able to elevate shoulders bilaterally Cognition: normal cognition Speech: speech normal Motor: strength 5/5 throughout Sensory Exam: no sensory deficits noted Extrem General: no calf tenderness bilaterally and no edema Psych Appearance: grossly normal Mental Status: mental status grossly normal Speech and Movement: speech and movement normal Course Vital Signs Vital signs: Vital Signs Temperature 36.7 C 06/22/21 18:32 Pulse 62 06/22/21 18:32 Respiratory Rate 16 06/22/21 18:32 Blood Pressure 120/67 06/22/21 18:32 Pulse Oximetry 98 06/22/21 18:32 Temperature 36.7 C 06/22/21 18:32 Temperature Source Temporal Artery Scan 06/22/21 18:32 Pulse 48 L 06/22/21 19:56 Respiratory Rate 14 06/22/21 20:05 Respiratory Effort 06/22/21 19:22 Respiratory Depth Normal 06/22/21 19:22 Respiratory Pattern Normal 06/22/21 19:22 Blood Pressure 115/57 L 06/22/21 19:56 Blood Pressure Position Sitting 06/22/21 18:32 Pulse Oximetry 99 06/22/21 20:05 Oxygen Delivery Method Room Air 06/22/21 18:32 Oxygen Flow Rate 0 06/22/21 18:32 Pain Level 10 06/22/21 19:15 Lab/Test Results Lab/Test Results: Laboratory Tests Range/Units 06/22/21 06/22/21 06/22/21 19:03 19:03 19:03 WBC (4.4-10.8) 10^3/uL 9.16 RBC (4.36-5.78) 10^6/uL 4.84 Hgb (13.5-17.5) g/dL 13.4 L Hct (40.0-50.0) % 41.3 MCV (80-95) fL 85.3 MCH (27.0-33.0) pg 27.7 MCHC (32.0-36.0) % 32.4 RDW (11.8-14.1) % 12.2 Plt Count (130-400) 10^3/uL 287 MPV (8.0-11.0) fL 9.8 Immature Gran % 0.3 Neutrophils % 59.9 Lymphocytes % 29.0 Monocytes % 7.0 Eosinophils % 2.7 Basophils % 1.1 Nucleated RBC % % 0 Absolute Neutrophils (1.2-6.7) 10^3/uL 5.48 Absolute Lymphocytes (1.2-3.4) 10^3/uL 2.66 Absolute Monocytes (0.1-0.8) 10^3/uL 0.64 Absolute Eosinophils (0.0-0.7) 10^3/uL 0.25 Absolute Basophils (0.0-0.2) 10^3/uL 0.10 Sodium (136-145) mmol/L 140 Potassium (3.5-5.1) mmol/L 3.6 Chloride (98-107) mmol/L 104 Carbon Dioxide (21.0-32.0) mmol/L 32.2 H Anion Gap (3-11) mmol/L 3.8 BUN (7-18) mg/dL 17 Creatinine (0.70-1.30) mg/dL 1.1 Estimated GFR/1.73 m2 (mL/min/1.73m2) >= 60.00 Glucose (74-106) mg/dL 87 Calcium (8.5-10.1) mg/dL 8.8 Total Bilirubin (0.2-1.0) mg/dL 0.3 AST (15-37) U/L 10 L ALT (16-63) U/L 21 Alkaline Phosphatase (46-116) U/L 54 Troponin I (<0.06) ng/mL < 0.05 Total Protein (6.4-8.2) g/dL 7.3 Albumin (3.4-5.0) g/dL 3.9 TSH (0.36-3.74) uIU/mL 0.56
[2021-06-22] MEDS: Ketorolac 15 MG/ML VIAL IVP (20:27)
[2021-06-22 20:39] LABS: Source Nasal/Nares
[2021-06-22 21:36] LABS: *AMPHETAMINES SCREEN URINE Negative (Negative); *BARBITURATES SCREEN URINE Negative (Negative); *BENZODIAZEPINES SCREEN URINE Negative (Negative); Cannabinoids THC Positive (Negative); Cocaine Screen,Urine Negative (Negative); METHADONE URINE SCREEN Negative (Negative); OPIATES URINE SCREEN Negative (Negative)
[2021-06-22 21:38] LABS: Tricyclic Antidepressants Negative (Negative)
--- NOTE | 2021-06-22 22:22 | HPE_ITS ---
Date of service: 06/22/21 Time of Service: 22:22 Assessment and Plan Assessment and plan (1) Syncope: Status: Chronic Assessment and plan: Likely orthostatic hypotension in the background of bradycardia, low normal BP, volume depletion from emesis, Suboxone rapidly tapered off. Monitor on telemetry. NS 500ml bolus. PRN compazine. BMP in AM. He does have an abnormal EKG as well. Cardiology consulted. He is on Trazadone that can cause syncope, but this is not a new medication. (2) Opioid dependence in remission: Status: Acute Assessment and plan: Completed a rapid off taper. Clonidine 0.1mg po BID Hydroxyzine TID. (3) Tobacco dependence: Status: Acute Assessment and plan: Off nicoderm replacement. History of Present Illness History of Present Illness Chief Complaint: Syncope Narrative: This is a 35 yo male with a PMH of opioid dependence, IV drug abuse, tobacco dependence. He is currently incarcerated. Last endorsed IV drug use was 1 week prior to admission. He states he was eating while sitting on the edge of his bed and then remembers waking up on the floor with detention staff around him. He denied any prodrome of CP, palpitations. He stated he had been feeling hot and sweaty. He endorsed a syncopal episode the Sunday prior to this admission as well. He underwent a rapid taper off his suboxone while incarcerated. It was explained to him that the facility no longer had a prescriber that could continue his medication. He is disgruntled because he notes other prisoners continue on the medication. He also did endorse N/V during the tapering of the suboxone. + nausea in ED / treated. CT head showed no acute abnormalities. Lab showed a slightly low Hgb of 13.4. BUN17, Creatinine 1.1 (0.9 in January of this year). Presenting SBP in the 110's. HR in the upper 40's to low 50's. EKG: sinus bradycardia, rate 57.RBBB and LPFB noted. Similar to EKG of 04/24/2020. Review of Systems All systems reviewed & are unremarkable except as noted in HPI and below PFSH Medical History Allergic shiners (03/22/17) Chronic pain Depression hemorrhaging Post operative hemorrhaging Hemorrhoids Telangiectasia (03/22/17) Thrombosed hemorrhoids Surgical History H/O hemorrhoidectomy Incision & Drainage, Abscess or Hematoma Hemorrhoid Social History Smoking/Tobacco Use Status: Current-Occasional Tobacco Type: cigarettes Smoking risk assessment performed?: Yes Alcohol Intake: current Alcohol Intake frequency: a few times a month Drug use: Occasionally Substance use type: marijuana Current gender identity: male Do you feel safe at home: Yes Do you feel safe in your relationship?: Yes Meds Allergies and Home Medications Allergies Allergy/AdvReac Type Severity Reaction Status Date / Time Iodinated Contrast Media Allergy Unknown ITCHING Verified 06/22/21 19:58 [Iodinated Contrast Media - Oral and] Home Medications Medication Instructions Recorded Confirmed Type acetaminophen [Tylenol Extra 500 mg PO TID PRN 01/25/21 06/22/21 History Strength] clonidine HCl 0.1 mg PO BID PRN 06/22/21 06/22/21 History hydroxyzine HCl 25 mg PO TID 06/22/21 06/22/21 History loperamide 2 mg PO BID PRN 06/22/21 06/22/21 History ondansetron HCl [Zofran] 4 mg PO Q8H PRN 06/22/21 06/22/21 History trazodone 100 mg PO QHS 06/22/21 06/22/21 History Exam Const General: cooperative and no acute distress Nutritional Appearance: average body habitus Orientation: alert and oriented x3 HENMT Head: normocephalic and atraumatic Eyes General: appearance normal, both eyes and all related structures Sclera: sclerae normal Pupils: PERRL Neck Neck: full ROM and nontender Resp Effort & Inspection: normal respiratory effort Auscultation: clear to auscultation bilaterally Cardio Rate: bradycardic Rhythm: regular rhythm Heart Sounds: S1 normal and S2 normal GI Palpation: soft and nontender Skin General skin exam: no rashes or lesions noted Neuro General: no focal motor deficits Cranial Nerves: facial strength normal Cognition: normal cognition Speech: speech normal Extrem General: no pedal edema and no calf tenderness Results Labs Result diagrams: 06/22/21 19:03 06/22/21 19:03 Labs: Laboratory Results - last 24 hr 06/22/21 06/22/21 06/22/21 19:03 19:03 19:03 WBC 9.16 RBC 4.84 Hgb 13.4 L Hct 41.3 MCV 85.3 MCH 27.7 MCHC 32.4 RDW 12.2 Plt Count 287 MPV 9.8 Immature Gran % 0.3 Neutrophils % 59.9 Lymphocytes % 29.0 Monocytes % 7.0 Eosinophils % 2.7 Basophils % 1.1 Nucleated RBC % 0 Absolute Neutrophils 5.48 Absolute Lymphocytes 2.66 Absolute Monocytes 0.64 Absolute Eosinophils 0.25 Absolute Basophils 0.10 Sodium 140 Potassium 3.6 Chloride 104 Carbon Dioxide 32.2 H Anion Gap 3.8 BUN 17 Creatinine 1.1 Estimated GFR/1.73 m2 >= 60.00 Glucose 87 Calcium 8.8 Total Bilirubin 0.3 AST 10 L ALT 21 Alkaline Phosphatase 54 Troponin I < 0.05 Total Protein 7.3 Albumin 3.9 TSH 0.56 Urine Opiates Screen Urine Methadone Screen Ur Barbiturates Screen Ur Tricyclics Screen Ur Amphetamines Screen U Benzodiazepines Scrn Urine Cocaine Screen Ur THC Screen COVID-19 Source 06/22/21 06/22/21 20:35 21:16 WBC RBC Hgb Hct MCV MCH MCHC RDW Plt Count MPV Immature Gran % Neutrophils % Lymphocytes % Monocytes % Eosinophils % Basophils % Nucleated RBC % Absolute Neutrophils Absolute Lymphocytes Absolute Monocytes Absolute Eosinophils Absolute Basophils Sodium Potassium Chloride Carbon Dioxide Anion Gap BUN Creatinine Estimated GFR/1.73 m2 Glucose Calcium Total Bilirubin AST ALT Alkaline Phosphatase Troponin I Total Protein Albumin TSH Urine Opiates Screen Negative Urine Methadone Screen Negative Ur Barbiturates Screen Negative Ur Tricyclics Screen Negative Ur Amphetamines Screen Negative U Benzodiazepines Scrn Negative Urine Cocaine Screen Negative Ur THC Screen Positive A COVID-19 Source Nasal/Nares Last Vital Signs Temp 36.6 C 06/22/21 21:58 Pulse 50 L 06/22/21 21:58 Resp 16 06/22/21 21:58 BP 123/72 06/22/21 21:58 Pulse Ox 99 06/22/21 21:58
[2021-06-22] MEDS: Normal Saline 250 ML IV (22:28)
[2021-06-22] MEDS: Melatonin 3 MG TAB PO (22:30)
[2021-06-22] MEDS: Magnesium Oxide 400 MG TAB PO (22:30)
[2021-06-22 22:31] LABS: COVID-19 PCR Negative (Negative)
[2021-06-22] MEDS: hydrOXYzine HCL 25 MG TAB PO (22:46)
[2021-06-22] MEDS: traZODone 100 MG TAB PO (22:46)
[2021-06-22] MEDS: Prochlorperazine 10 MG/2 ML VIAL IVP (22:46)
[2021-06-22] MEDS: Normal Saline Flush 10 ML SYR IVP (22:46)
[2021-06-23] VITALS (8 sets, daily range): BP systolic 108–130; BP diastolic 61–81; PULSE 48–70; RESP 16–18; TEMP 36.4–36.8; O2SAT 98–99
[2021-06-23 07:00] LABS: Anion Gap 5.5 mmol/L (3-11); BUN 15 mg/dL (7-18); CO2 30.5 mmol/L (21.0-32.0); CREATININE 1.2 mg/dL (0.70-1.30); Calcium 8.9 mg/dL (8.5-10.1); Chloride 108 mmol/L (98-107); Glucose 100 mg/dL (74-106); Magnesium 2.5 mg/dL (1.8-2.4); Potassium 4.4 mmol/L (3.5-5.1); Sodium 144 mmol/L (136-145)
[2021-06-23] MEDS: Ondansetron 4 MG TAB PO (07:40)
[2021-06-23] MEDS: hydrOXYzine HCL 25 MG TAB PO ×3 (07:40→20:56)
--- NOTE | 2021-06-23 14:12 | CMPROGNOTE_ITS ---
- If Service Date Differs Date of service: 06/23/21 Time of Service: 14:12 Care Management Progress Note S/O: Bridger continues to be closely monitored and treated. Work up for syncope continues. When cleared he will return to [facility] facilities via secure transport with staff currently present with him at [facility]. A: 35 year old male admitted to [facility] on 06/22/21 for Syncope. P: [facility] via [facility] van when medically cleared. continues to support.
--- NOTE | 2021-06-23 14:12 | PDOC.CMPRO ---
- If Service Date Differs Date of service: 06/23/21 Time of Service: 14:12 Care Management Progress Note S/O: Bridger continues to be closely monitored and treated. Work up for syncope continues. When cleared he will return to [facility] facilities via secure transport with staff currently present with him at [facility]. A: 35 year old male admitted to [facility] on 06/22/21 for Syncope. P: [facility] via [facility] van when medically cleared. continues to support.
--- NOTE | 2021-06-23 14:21 | CHAPLAIN ---
Bridger was brought in from the [facility]. He had two people in the room with him. I explained my role and offered support.
--- NOTE | 2021-06-23 16:30 | PGE_ITS ---
Date of Service Date of service: 06/23/21 Time of Service: 16:30 Assessment and Plan Assessment and plan (1) Syncope: Status: Chronic Assessment and plan: No orthostasis today. The patient does state that he was nauseated both times he had syncopized, pointing to vasovagal syncope. The bradycardia that was noted on tele could have been due to clonidine, which has now been d/c'ed. Continue to monitor on tele overnight. Control nausea. I suspect the patient could be discharged back to nursing home tomorrow. We will inquire if extended cardiac monitoring is an option. (2) Opioid withdrawal: Status: Acute Assessment and plan: Tx with atarax, loperamide prn, antiemetics. (3) Opioid dependence in remission: Status: Chronic Assessment and plan: No longer on suboxone as off arrival to nursing home as had tested negative for suboxone there. See above (4) Tobacco dependence: Status: Acute Assessment and plan: Provide nicotine replacement (5) DVT prophylaxis: Status: Acute Assessment and plan: SCDs (6) Discharge planning issues: Status: Acute Assessment and plan: Full code Anticipate discharge back to nursing home tomorrow Subjective Subjective Interval history since last seen: On tele, Mr Rocha has had a HR down to 40s but also 60s-70s with any activity. 32 this am at 5:30. He has not felt dizzy. Has not had palpitations. Denies chest pain, shortness of breath. Does endorse nausea. Not orthostatic. Exam Narrative Exam Narrative: General: Pleasant middle-aged male, calm, cooperative, A&Ox3 HEENT: EOMI, MMM Heart: RRR, no m/r/g, mildly bradycardic (50s by my estimate) Lungs: CTAB Abdomen: soft, nontender, nondistended Extremities: no edmea BLEs, he is shackled Objective Last Vital Signs Temp 36.8 C 06/23/21 10:42 Pulse 48 L 06/23/21 10:44 Resp 16 06/23/21 10:42 BP 113/73 06/23/21 10:44 Pulse Ox 98 06/23/21 10:42 Laboratory Results - last 24 hr 06/22/21 06/22/21 06/22/21 19:03 19:03 19:03 WBC 9.16 RBC 4.84 Hgb 13.4 L Hct 41.3 MCV 85.3 MCH 27.7 MCHC 32.4 RDW 12.2 Plt Count 287 MPV 9.8 Immature Gran % 0.3 Neutrophils % 59.9 Lymphocytes % 29.0 Monocytes % 7.0 Eosinophils % 2.7 Basophils % 1.1 Nucleated RBC % 0 Absolute Neutrophils 5.48 Absolute Lymphocytes 2.66 Absolute Monocytes 0.64 Absolute Eosinophils 0.25 Absolute Basophils 0.10 Sodium 140 Potassium 3.6 Chloride 104 Carbon Dioxide 32.2 H Anion Gap 3.8 BUN 17 Creatinine 1.1 Estimated GFR/1.73 m2 >= 60.00 Glucose 87 Calcium 8.8 Magnesium Total Bilirubin 0.3 AST 10 L ALT 21 Alkaline Phosphatase 54 Troponin I < 0.05 Total Protein 7.3 Albumin 3.9 TSH 0.56 Urine Opiates Screen Urine Methadone Screen Ur Barbiturates Screen Ur Tricyclics Screen Ur Amphetamines Screen U Benzodiazepines Scrn Urine Cocaine Screen Ur THC Screen COVID-19 Source SARS-CoV-2 (PCR) 06/22/21 06/22/21 06/23/21 20:35 21:16 06:38 WBC RBC Hgb Hct MCV MCH MCHC RDW Plt Count MPV Immature Gran % Neutrophils % Lymphocytes % Monocytes % Eosinophils % Basophils % Nucleated RBC % Absolute Neutrophils Absolute Lymphocytes Absolute Monocytes Absolute Eosinophils Absolute Basophils Sodium 144 Potassium 4.4 D Chloride 108 H Carbon Dioxide 30.5 Anion Gap 5.5 BUN 15 Creatinine 1.2 Estimated GFR/1.73 m2 >= 60.00 Glucose 100 Calcium 8.9 Magnesium Total Bilirubin AST ALT Alkaline Phosphatase Troponin I Total Protein Albumin TSH Urine Opiates Screen Negative Urine Methadone Screen Negative Ur Barbiturates Screen Negative Ur Tricyclics Screen Negative Ur Amphetamines Screen Negative U Benzodiazepines Scrn Negative Urine Cocaine Screen Negative Ur THC Screen Positive A COVID-19 Source Nasal/Nares SARS-CoV-2 (PCR) Negative 06/23/21 06:38 WBC RBC Hgb Hct MCV MCH MCHC RDW Plt Count MPV Immature Gran % Neutrophils % Lymphocytes % Monocytes % Eosinophils % Basophils % Nucleated RBC % Absolute Neutrophils Absolute Lymphocytes Absolute Monocytes Absolute Eosinophils Absolute Basophils Sodium Potassium Chloride Carbon Dioxide Anion Gap BUN Creatinine Estimated GFR/1.73 m2 Glucose Calcium Magnesium 2.5 H Total Bilirubin AST ALT Alkaline Phosphatase Troponin I Total Protein Albumin TSH Urine Opiates Screen Urine Methadone Screen Ur Barbiturates Screen Ur Tricyclics Screen Ur Amphetamines Screen U Benzodiazepines Scrn Urine Cocaine Screen Ur THC Screen COVID-19 Source SARS-CoV-2 (PCR)
[2021-06-23] MEDS: Acetaminophen 325 MG TAB 650 MG PO ×2 (16:39→20:53)
[2021-06-23] MEDS: Nicotine 14 MG/24 HR PATCH TD (16:39)
[2021-06-23] MEDS: traZODone 100 MG TAB PO (20:53)
[2021-06-23] MEDS: Melatonin 3 MG TAB PO (20:53)
[2021-06-24 00:33] VITALS: BP 135/71; PULSE 58; RESP 18; TEMP 36.5; O2SAT 98
[2021-06-24 07:30] LABS: Anion Gap 8.9 mmol/L (3-11); BUN 13 mg/dL (7-18); CO2 27.1 mmol/L (21.0-32.0); CREATININE 1.1 mg/dL (0.70-1.30); Chloride 106 mmol/L (98-107); Glucose 100 mg/dL (74-106); Potassium 4.7 mmol/L (3.5-5.1); Sodium 142 mmol/L (136-145)
[2021-06-24 07:31] LABS: Magnesium 2.1 mg/dL (1.8-2.4)
[2021-06-24] MEDS: Pantoprazole 40 MG TABCR PO (08:47)
[2021-06-24] MEDS: hydrOXYzine HCL 25 MG TAB PO ×2 (08:47→13:06)
[2021-06-24 11:15] VITALS: BP 135/71; PULSE 53; O2SAT 98; O2SAT 99
--- NOTE | 2021-06-24 11:29 | NUR.NOTE ---
Telemetry screen not allowing me to open it. Strip [id number] by Miley Dailey HR 89 SR with BBB 0.16 NV, 0.14 QRS, 0.42 QTNursing Note:
[2021-06-24] MEDS: Ibuprofen 600 MG TAB PO (13:06)
--- NOTE | 2021-06-24 14:11 | W.PM.DS.N ---
Date of service: 06/24/21 Time of Service: 14:11 DS: Diagnosis Discharge Diagnosis (1) Vasovagal syncopes: Status: Acute (2) GERD (gastroesophageal reflux disease): Status: Chronic (3) Opioid withdrawal: Status: Resolved (4) Opiate dependence: Status: Chronic (5) Tobacco dependence: Status: Chronic (6) COVID-19 ruled out by laboratory testing: Status: Ruled-out Discharge Plan Disposition [facility] Dis[facility] Condition: Serious Discharge Details Reason For Visit: Syncope Admit Date/Time: 06/22/21 20:46 Admit Provider: Victorino Kingsley Attending Provider: Victorino Kingsley Primary Care Provider: Patrick Stanford Hospital Course Hospital Course: Mr Rocha is a 35 year old male with PMHx of opiate and tobacco dependence, who was observed on [facility] hospitalist service from 06/22/21 until 06/24/21 after two episodes of syncope which occurred in setting of nausea due to opiate withdrawal. The patient also reports constant feeling of heartburn. He was found to be bradycardic on presentation, partially due to clonidine and partially we feel due to his baseline HR of mostly in the 50s, which may have also contributed to the syncopal episodes. He has had no arrhythmic events on tele and is feeling much better as far as nausea at this time. He is felt to be medically stable for discharge at this time. He will need a PPI on discharge. Should syncope recur in absence of nausea, the patient should have extended cardiac monitoring such as with a cardiac event recorder (as outpatient). Home Meds and New Rx's Prescriptions: New nicotine 14 mg/24 hr Patch 24 Hour 14 mg transdermal DAILY PRN PRNQty: 28 RF: 0 pantoprazole 40 mg Tablet,Delayed Release (Dr/Ec) 40 mg PO DAILY@0730 Qty: 30 RF: 0 sucralfate [Carafate] 1 gram tablet 1 g PO BID Qty: 60 RF: 0 Continued acetaminophen 500 mg Capsule 500 mg PO TID PRNRF: 0 trazodone 100 mg Tablet 100 mg PO QHS RF: 0 ondansetron HCl [Zofran] 4 mg Tablet 4 mg PO Q8H PRNRF: 0 hydroxyzine HCl 25 mg tablet 25 mg PO TID RF: 0 Changed loperamide 2 mg Tablet 2 mg PO QLOOSE PRNQty: 0 RF: 0 Discontinued clonidine HCl 0.1 mg Tablet 0.1 mg PO BID PRNRF: 0 Discharge Instructions Instructions: Sucralfate (By mouth), Pantoprazole (By mouth), Syncope (DC), GERD (Gastroesophageal Reflux Disease) (DC) Additional Instructions: Try to stop smoking. Return to the hospital with any more syncopal events, with any fever, bleeding, chest pain, or shortness of breath. Stand Alone Forms: Nursing Discharge Form Referrals: Patrick Stanford [Primary Care Provider] - Activity:: Activity as Tolerated Equipment/Supplies:: No Equipment Needed Diet:: low acid Discharge Orders Discharge Orders: Discharge Order (Routine); Ordered 06/24/21 Ordered By: Lexy Menendez DS: Summary Time Spent with Patient providing and/or coordinating discharge services: Greater than 30 minutes Status at Discharge Functional status at discharge: independent ambulation Overall status at discharge: patient is back to baseline Mental Status: mental status grossly normal Speech and Movement: speech and movement normal Mood: congruent mood Affect: normal affect Exam Narrative Exam Narrative: General: Pleasant middle-aged male, calm, cooperative, A&Ox3 HEENT: EOMI, MMM Heart: RRR, no m/r/g, Lungs: CTAB Abdomen: soft, nontender, nondistended Extremities: no edmea BLEs, he is shackled Psych Mental Status: mental status grossly normal Speech and Movement: speech and movement normal Mood: congruent mood Affect: normal affect DS: Data Vitals/I&O Vitals and I&O: Vital Signs Temperature 36.5 C 06/24/21 00:33 Temperature Source Tympanic 06/24/21 00:33 Pulse 53 L 06/24/21 11:15 Pulse Rhythm Regular 06/24/21 11:15 Pulse 46 L 06/22/21 21:31 Respiratory Rate 18 06/24/21 00:33 Respiratory Effort Non-Labored 06/24/21 11:15 Respiratory Depth Normal 06/24/21 11:15 Respiratory Pattern Normal 06/24/21 11:15 Blood Pressure 135/71 06/24/21 11:15 Blood Pressure Mean 78 06/22/21 21:30 Blood Pressure Position Sitting 06/22/21 18:32 Pulse Oximetry 98 06/24/21 11:15 Oxygen Delivery Method Room Air 06/24/21 11:15 Oxygen Flow Rate 0 06/24/21 11:15 Pain Level 0 06/24/21 11:15 Intake & Output 06/23/21 06/24/21 06/24/21 23:59 11:59 23:59 Intake Total 180 / 180 Balance 180 / 180 Intake: Oral 180 / 180 Other: Urine Color Yellow Urine Appearance Clear Clear Urine Odor Normal Comment in bathroom Voiding Methods Toilet Data Completed and Pending Completed studies during hospitalization [Text1]: CT head: No acute intracranial process. Labs on day of discharge: Labs from last 24 hours 06/24/21 06/24/21 06:50 06:50 Sodium 142 Potassium 4.7 Chloride 106 Carbon Dioxide 27.1 Anion Gap 8.9 BUN 13 Creatinine 1.1 Estimated GFR/1.73 m2 >= 60.00 Glucose 100 Calcium 9.0 Magnesium 2.1 PFSH Medical History Allergic shiners (03/22/17) Chronic pain Depression hemorrhaging Post operative hemorrhaging Hemorrhoids Telangiectasia (03/22/17) Thrombosed hemorrhoids Surgical History H/O hemorrhoidectomy Incision & Drainage, Abscess or Hematoma Hemorrhoid Social History Smoking/Tobacco Use Status: Current-Occasional Tobacco Type: cigarettes Smoking risk assessment performed?: Yes Alcohol Intake: current Alcohol Intake frequency: a few times a month Drug use: Occasionally Substance use type: marijuana Current gender identity: male Do you feel safe at home: Yes Do you feel safe in your relationship?: Yes
--- NOTE | 2021-06-24 14:51 | PDOC.CMDIS ---
- If Service Date Differs Date of service: 06/24/21 Time of Service: 14:51 LACE Index Scoring Tool - Questions: Length of Stay (in days): 2 Acuity (Admit via E.D.?): Yes E.D. Visits: 5 - Answers: Total Score: 9 Risk of Readmission: Low Risk Care Management Discharge Reason for Hospitalization: Syncope Discharge Plan: Bridger will return to [facility] with secured transport provided by [facility] staff and facility van upon discharge. The facility will manage his further care needs, MD to MD requested P#[phone], cell#[phone] number provided for contact. Patient/Family Education Needs: Review discharge instructions, discuss Ask Me Three.
== END 2021-06-24 14:46 | disposition home or self-care (01) ==
LOC: ER 20:52 → MS 21:50
PROVIDERS: Internal Medicine; Admitting Provider Family Medicine; Emergency Provider Student in an Organized Health Care Education/Training Program; PCP Physician Assistant; Visit Provider Family Medicine
DX: I95.1 Orthostatic hypotension (principal); S06.0X1A Concussion with loss of consciousness of 30 minutes or less, initial encounter; F11.23 Opioid dependence with withdrawal; Y92.143 Cell of prison as the place of occurrence of the external cause; F32.9 Major depressive disorder, single episode, unspecified; G89.29 Other chronic pain; R11.2 Nausea with vomiting, unspecified; R00.1 Bradycardia, unspecified; I45.2 Bifascicular block; Z20.822 Contact with and (suspected) exposure to COVID-19; F17.210 Nicotine dependence, cigarettes, uncomplicated; W06.XXXA Fall from bed, initial encounter
CPT/HCPCS: 36415; 80048; 80053; 80307; 87635; 93005; 96374; 96375; 99285; 70450; 83735; 84443; 84484; 85025; 93010; 99217; 99220; 99225; G0378; J0780; J1885; J2405; J8597

== ENCOUNTER 2021-06-26 12:48 | Emergency (ER) | payer OTHER, SELFPAY ==
[2021-06-26] VITALS (23 sets, daily range): BP systolic 108–134; BP diastolic 62–84; PULSE 53–80; RESP 12–29; TEMP 36.6; O2SAT 99
[2021-06-26] MEDS: Normal Saline 1,000 ML 1000 ML IV (13:02)
[2021-06-26 13:05] LABS: Abs Immature Grans 0.03 10^3/uL (0.0-0.06); Absolute Basophil Count 0.08 10^3/uL (0.0-0.2); Absolute Eosinophil Count 0.14 10^3/uL (0.0-0.7); Absolute Lymphocyte Count 2.28 10^3/uL (1.2-3.4); Absolute Monocyte Count 0.74 10^3/uL (0.1-0.8); Absolute Neutrophil Count 7.01 10^3/uL (1.2-6.7); Basophils % 0.8; Eosinophils % 1.4; HCT 47.1 % (40.0-50.0); HGB 15.2 g/dL (13.5-17.5); Immature Grans % 0.3; Lymphocytes % 22.2; MCH 27.8 pg (27.0-33.0); MCHC 32.3 % (32.0-36.0); MCV 86.3 fL (80-95); MPV 9.6 fL (8.0-11.0); Monocytes % 7.2; Neutrophils % 68.1; Nucleated RBC 0 %; Platelet Count 349 10^3/uL (130-400); RBC 5.46 10^6/uL (4.36-5.78); RDW 12.8 % (11.8-14.1); RDW-SD 40.4 fL; WBC 10.28 10^3/uL (4.4-10.8)
[2021-06-26] MEDS: Metoclopramide 10 MG/2 ML VIAL IVP (13:12)
[2021-06-26] MEDS: Normal Saline 50 ML (13:13)
[2021-06-26 13:22] LABS: ALT 27 U/L (16-63); AST 11 U/L (15-37); Albumin 4.4 g/dL (3.4-5.0); Alkaline Phosphatase 59 U/L (46-116); Anion Gap 5.5 mmol/L (3-11); BUN 15 mg/dL (7-18); Bilirubin, Total 0.6 mg/dL (0.2-1.0); CO2 31.5 mmol/L (21.0-32.0); CREATININE 1.1 mg/dL (0.70-1.30); Calcium 9.2 mg/dL (8.5-10.1); Chloride 102 mmol/L (98-107); Glucose 74 mg/dL (74-106); Lipase 235 U/L (73-393); Potassium 4.3 mmol/L (3.5-5.1); Sodium 139 mmol/L (136-145); Total Protein 8.3 g/dL (6.4-8.2)
[2021-06-26] MEDS: Lactated Ringers 1,000 ML 1000 ML IV (13:49)
[2021-06-26 14:34] LABS: Bilirubin Negative (Negative); Blood Negative (Negative); Clarity Clear (Clear); Glucose Negative (Negative); Ketones Negative (Negative); Leukocyte Esterase Negative (Negative); Nitrite Negative (Negative); Specific Gravity 1.025 (1.005-1.025); Urobilinogen 0.2 EU/dL (Up TO 0.2)
--- NOTE | 2021-06-26 14:48 | ED.GENADUL_ITS ---
Discharge Plan Disposition Patient Disposition: HOME Condition: Stable Discharge Details Clinical Impression: Nausea & vomiting Primary Care Provider: Patrick Stanford ED Provider: Bryan Quezada Home Meds and New Rx's Prescriptions: New metoclopramide HCl [Reglan] 10 mg tablet 10 mg PO Q6H PRN (Reason: nausea and vomiting) Qty: 10 RF: 0 No Action acetaminophen 500 mg Capsule 500 mg PO TID PRNRF: 0 trazodone 100 mg Tablet 100 mg PO QHS RF: 0 ondansetron HCl [Zofran] 4 mg Tablet 4 mg PO Q8H PRNRF: 0 hydroxyzine HCl 25 mg tablet 25 mg PO TID RF: 0 pantoprazole 40 mg Tablet,Delayed Release (Dr/Ec) 40 mg PO DAILY@0730 Qty: 30 RF: 0 sucralfate [Carafate] 1 gram tablet 1 g PO BID Qty: 60 RF: 0 loperamide 2 mg Tablet 2 mg PO QLOOSE PRNQty: 0 RF: 0 Discharge Instructions Instructions: Acute Nausea and Vomiting (ED) Additional Instructions: For Reglan for nausea and vomiting as directed. Please watch for new or worsening symptoms and return to the ER for any concerns. Please begin taking your Suboxone once you are released from corrections or they will begin your Suboxone in the corrections facility if he meets criteria. Otherwise once released from corrections I recommend contacting your primary care provider MAT team to discuss your ER visit, ongoing symptoms, and need for outpatient reevaluation Discharge Data Discharge Date/Time-TO BE ENTERED AT DEPARTURE: 06/26/21 15:14 Medical Decision Making 35-year-old gentleman presents from [facility] facility for ongoing nausea, vomiting, sent for dehydration. Clinically he appears well, nontoxic, no clear signs of dehydration. Abdomen is soft, nontender. Moist mucous membranes. Will obtain IV access, give IV fluid and Reglan, obtain routine laboratory values and will reassess. I would also like to reach out to the corrections facility medical team to gather additional details regarding his buprenorphine. I spoke with Griselda from the corrections facility who was on the medical team. She states that they did not initiate his Suboxone because his urine drug screen was positive for THC and cocaine. He will receive Suboxone if he meets criteria. CBC, CMP, urinalysis all unremarkable for obvious emergent process. No ketones in his urine. Normal white count. GFR greater than 60. No vomiting while under my care. It is unknown how long he will continue to be in a corrections facility. For this reason, I do not believe initiating buprenorphine therapy here in the ER is prudent as he has not had his dose in over 10 days, did not have any while he was here in as an inpatient, and he will likely be in the same situation tomorrow at the intermediate. Patient does have buprenorphine at home so that when he is released he can take as directed and that he will get set back up into his program. Patient is comfortable with this plan and has no additional questions or concerns. Standard discharge and return precautions provided. This documentation was generated using [employer] system, please disregard any oddities of phrase or misspellings. Medical Records Medical records reviewed: Yes I reviewed the patient's medical records. Lab Data Lab results reviewed: Yes I reviewed the patient's lab results. Labs: Laboratory Tests Range/Units 06/26/21 06/26/21 06/26/21 12:58 12:58 14:25 WBC (4.4-10.8) 10^3/uL 10.28 RBC (4.36-5.78) 10^6/uL 5.46 Hgb (13.5-17.5) g/dL 15.2 Hct (40.0-50.0) % 47.1 MCV (80-95) fL 86.3 MCH (27.0-33.0) pg 27.8 MCHC (32.0-36.0) % 32.3 RDW (11.8-14.1) % 12.8 Plt Count (130-400) 10^3/uL 349 MPV (8.0-11.0) fL 9.6 Immature Gran % 0.3 Neutrophils % 68.1 Lymphocytes % 22.2 Monocytes % 7.2 Eosinophils % 1.4 Basophils % 0.8 Nucleated RBC % % 0 Absolute Neutrophils (1.2-6.7) 10^3/uL 7.01 H Absolute Lymphocytes (1.2-3.4) 10^3/uL 2.28 Absolute Monocytes (0.1-0.8) 10^3/uL 0.74 Absolute Eosinophils (0.0-0.7) 10^3/uL 0.14 Absolute Basophils (0.0-0.2) 10^3/uL 0.08 Sodium (136-145) mmol/L 139 Potassium (3.5-5.1) mmol/L 4.3 Chloride (98-107) mmol/L 102 Carbon Dioxide (21.0-32.0) mmol/L 31.5 Anion Gap (3-11) mmol/L 5.5 BUN (7-18) mg/dL 15 Creatinine (0.70-1.30) mg/dL 1.1 Estimated GFR/1.73 m2 (mL/min/1.73m2) >= 60.00 Glucose (74-106) mg/dL 74 Calcium (8.5-10.1) mg/dL 9.2 Total Bilirubin (0.2-1.0) mg/dL 0.6 AST (15-37) U/L 11 L ALT (16-63) U/L 27 Alkaline Phosphatase (46-116) U/L 59 Total Protein (6.4-8.2) g/dL 8.3 H Albumin (3.4-5.0) g/dL 4.4 Lipase (73-393) U/L 235 Urine Color (Yellow) Yellow Urine Clarity (Clear) Clear Urine pH (5-8) 6.0 Ur Specific [place] (1.005-1.025) 1.025 Urine Protein (Negative) mg/dL Negative Urine Ketones (Negative) mg/dL Negative Urine Blood (Negative) Negative Urine Nitrite (Negative) Negative Urine Bilirubin (Negative) Negative Urine Urobilinogen (Up TO 0.2) EU/dL 0.2 Ur Leukocyte Esterase (Negative) Negative Urine Glucose (Negative) mg/dL Negative HPI General Mode of arrival: ambulatory . Date/Time Provider Initiated Documentation: 06/26/21 12:56 . Limitations to Documentation: no limitations . Information obtained by: police . HPI Narrative: This is a 35-year-old male, recent admission and discharge from our hospital, past medical history of chronic pain, depression, opiate abuse, withdrawal, supposed to be on buprenorphine but has not had it in nearly 10 days, reporting ongoing nausea and vomiting. Patient states that he does not want to be here in the ER and that he was told he had to come through his corrections facility. Patient reports mild epigastric discomfort when he physically vomits otherwise is asymptomatic. There is concern for potential dehydration. Patient states that when he gets out of the corrections facility he does have a prescription of his buprenorphine and can take as directed and get back in with his program. He denies recent trauma, fever, chest pain, shortness of breath, diarrhea, constipation, skin rash. Reports Zofran is not really helping with his symptoms. No more syncopal episodes. Related Data Home Medications Medication Instructions Recorded Confirmed acetaminophen 500 mg PO TID PRN 01/25/21 06/26/21 hydroxyzine HCl 25 mg PO TID 06/22/21 06/26/21 ondansetron HCl [Zofran] 4 mg PO Q8H PRN 06/22/21 06/26/21 trazodone 100 mg PO QHS 06/22/21 06/26/21 loperamide 2 mg PO QLOOSE PRN #0 tab 06/24/21 06/26/21 pantoprazole 40 mg PO DAILY@0730 #30 tab 06/24/21 06/26/21 sucralfate [Carafate] 1 g PO BID #60 tab 06/24/21 06/26/21 metoclopramide HCl [Reglan] 10 mg PO Q6H PRN #10 tab 06/26/21 Previous Rx's Medication Instructions Recorded loperamide 2 mg PO QLOOSE PRN #0 tab 06/24/21 pantoprazole 40 mg PO DAILY@0730 #30 tab 06/24/21 sucralfate [Carafate] 1 g PO BID #60 tab 06/24/21 metoclopramide HCl [Reglan] 10 mg PO Q6H PRN #10 tab 06/26/21 Allergies Allergy/AdvReac Type Severity Reaction Status Date / Time Iodinated Contrast Media Allergy Unknown ITCHING Verified 06/26/21 12:56 [Iodinated Contrast Media - Oral and] General Stated Complaint: Nausea/Vomit/Diar NADIRA: 3 Review of Systems Constitutional Constitutional: Denies fever(s) and Denies headache(s) ENT Ears, Nose, Mouth, and Throat: Denies headache(s) and Denies neck pain Cardiovascular Cardiovascular: Denies chest pain and Denies dyspnea Respiratory Respiratory: Denies cough and Denies dyspnea Gastrointestinal Gastrointestinal: Reports abdominal pain, Denies constipation, Denies diarrhea, Reports nausea and Reports vomiting Genitourinary Genitourinary: Denies dysuria Comments: ED decreased urination secondary to dehydration Musculoskeletal Musculoskeletal: Denies back pain and Denies neck pain Integumentary/Breasts Skin/Breast: Denies rash Neurologic Neurologic: Denies headache(s) [facility] Medical History Allergic shiners (03/22/17) Chronic pain Depression hemorrhaging Post operative hemorrhaging Hemorrhoids Telangiectasia (03/22/17) Thrombosed hemorrhoids Surgical History H/O hemorrhoidectomy Incision & Drainage, Abscess or Hematoma Hemorrhoid Social History Smoking/Tobacco Use Status: Current-Occasional Tobacco Type: cigarettes Smoking risk assessment performed?: Yes Alcohol Intake: current Alcohol Intake frequency: a few times a month Drug use: Occasionally Substance use type: marijuana Details: Pt states he used fentanyl 2 bundles daily, last use 2 weeks ago. Current gender identity: male Do you feel safe at home: Yes Do you feel safe in your relationship?: Yes Additional Social history: Inmate @ [facility] Exam Const General: cooperative, healthy appearing, comfortable and no acute distress Orientation: alert and awake HENMT Head: normal to inspection, normocephalic and atraumatic Mouth: moist mucous membranes Eyes General: appearance normal, both eyes and all related structures Conjunctivae: conjunctivae normal Neck Neck: normal visual inspection, trachea midline and supple Resp Effort & Inspection: normal respiratory effort and able to speak in complete sentences Auscultation: clear to auscultation bilaterally Cardio Rate: regular rate Rhythm: regular rhythm GI Inspection: normal to inspection Palpation: soft, not firm, no guarding, no pulsatile masses and nontender Auscultation: normal bowel sounds Back/Spine/Pelvis Back: No back tenderness Skin General skin exam: no rashes or lesions noted Neuro General: patient alert, patient awake, moves all extremities and no focal motor deficits Cognition: normal cognition Speech: speech normal Sensory Exam: no sensory deficits noted Psych Appearance: grossly normal Mental Status: mental status grossly normal Course Vital Signs Vital signs: Vital Signs Temperature 36.6 C 06/26/21 12:51 Pulse 80 06/26/21 12:51 Respiratory Rate 16 06/26/21 12:51 Blood Pressure 128/77 06/26/21 12:51 Pulse Oximetry 99 06/26/21 12:51 Temperature 36.6 C 06/26/21 12:51 Temperature Source Skin 06/26/21 12:51 Pulse 55 L 06/26/21 14:31 Pulse 55 L 06/26/21 14:31 Respiratory Rate 17 06/26/21 14:31 Respiratory Effort 06/26/21 13:32 Blood Pressure 119/69 06/26/21 14:31 Blood Pressure Mean 80 06/26/21 14:31 Blood Pressure Position Sitting 06/26/21 12:51 Pulse Oximetry 99 06/26/21 12:53 Oxygen Delivery Method Room Air 06/26/21 12:51 Oxygen Flow Rate 0 06/26/21 12:51 Pain Level 6 06/26/21 12:51 Comment 06/26/21 12:51 Lab/Test Results Lab/Test Results: Laboratory Tests Range/Units 06/26/21 06/26/21 06/26/21 12:58 12:58 14:25 WBC (4.4-10.8) 10^3/uL 10.28 RBC (4.36-5.78) 10^6/uL 5.46 Hgb (13.5-17.5) g/dL 15.2 Hct (40.0-50.0) % 47.1 MCV (80-95) fL 86.3 MCH (27.0-33.0) pg 27.8 MCHC (32.0-36.0) % 32.3 RDW (11.8-14.1) % 12.8 Plt Count (130-400) 10^3/uL 349 MPV (8.0-11.0) fL 9.6 Immature Gran % 0.3 Neutrophils % 68.1 Lymphocytes % 22.2 Monocytes % 7.2 Eosinophils % 1.4 Basophils % 0.8 Nucleated RBC % % 0 Absolute Neutrophils (1.2-6.7) 10^3/uL 7.01 H Absolute Lymphocytes (1.2-3.4) 10^3/uL 2.28 Absolute Monocytes (0.1-0.8) 10^3/uL 0.74 Absolute Eosinophils (0.0-0.7) 10^3/uL 0.14 Absolute Basophils (0.0-0.2) 10^3/uL 0.08 Sodium (136-145) mmol/L 139 Potassium (3.5-5.1) mmol/L 4.3 Chloride (98-107) mmol/L 102 Carbon Dioxide (21.0-32.0) mmol/L 31.5 Anion Gap (3-11) mmol/L 5.5 BUN (7-18) mg/dL 15 Creatinine (0.70-1.30) mg/dL 1.1 Estimated GFR/1.73 m2 (mL/min/1.73m2) >= 60.00 Glucose (74-106) mg/dL 74 Calcium (8.5-10.1) mg/dL 9.2 Total Bilirubin (0.2-1.0) mg/dL 0.6 AST (15-37) U/L 11 L ALT (16-63) U/L 27 Alkaline Phosphatase (46-116) U/L 59 Total Protein (6.4-8.2) g/dL 8.3 H Albumin (3.4-5.0) g/dL 4.4 Lipase (73-393) U/L 235 Urine Color (Yellow) Yellow Urine Clarity (Clear) Clear Urine pH (5-8) 6.0 Ur Specific [place] (1.005-1.025) 1.025 Urine Protein (Negative) mg/dL Negative Urine Ketones (Negative) mg/dL Negative Urine Blood (Negative) Negative Urine Nitrite (Negative) Negative Urine Bilirubin (Negative) Negative Urine Urobilinogen (Up TO 0.2) EU/dL 0.2 Ur Leukocyte Esterase (Negative) Negative Urine Glucose (Negative) mg/dL Negative
== END 2021-06-26 15:14 | disposition home or self-care (01) ==
PROVIDERS: Emergency Provider Physician Assistant; PCP Physician Assistant
DX: R11.2 Nausea with vomiting, unspecified (principal); F11.20 Opioid dependence, uncomplicated
CPT/HCPCS: 36415; 80053; 83690; 96361; 96374; 99284; 81003; 85025; 99283; J2765

== ENCOUNTER 2021-09-26 09:09 | Emergency (ER) | payer MEDICAID, SELFPAY ==
[2021-09-26 09:15] VITALS: BP 107/65; PULSE 74; RESP 18; O2SAT 100
--- NOTE | 2021-09-26 09:26 | ED.GENADUL_ITS ---
Discharge Plan Disposition Patient Disposition: HOME Condition: Good Discharge Details Clinical Impression: Laceration of face, Facial trauma Primary Care Provider: Patrick Stanford ED Provider: Lyndsey Connors Home Meds and New Rx's Prescriptions: Continued metoclopramide HCl [Reglan] 10 mg tablet 10 mg PO Q6H PRN (Reason: nausea and vomiting) Qty: 10 RF: 0 acetaminophen 500 mg Capsule 500 mg PO TID PRNRF: 0 trazodone 100 mg Tablet 100 mg PO QHS RF: 0 ondansetron HCl [Zofran] 4 mg Tablet 4 mg PO Q8H PRNRF: 0 hydroxyzine HCl 25 mg tablet 25 mg PO TID RF: 0 pantoprazole 40 mg Tablet,Delayed Release (Dr/Ec) 40 mg PO DAILY@0730 Qty: 30 RF: 0 sucralfate [Carafate] 1 gram tablet 1 g PO BID Qty: 60 RF: 0 Discharge Instructions Instructions: Facial Laceration (ED) Additional Instructions: Keep wound clean and dry. Monitor for signs of infection putting red, warmth, drainage, increased pain, fever/chills. If you develop these or other new/worsening symptoms please seek care urgently once again. You have absorbable stitches in the eyebrow section. These will fall out on her own. The sutures are clear. The area on the forehead is closed with adhesive, this will also come off naturally. Please do not apply any ointment over this as it will call the adhesive to breakdown prematurely. Please follow-up with your primary care in 2 weeks for reevaluation of your wound. Referrals: Patrick Stanford [Primary Care Provider] - Discharge Data Discharge Date/Time-TO BE ENTERED AT DEPARTURE: 09/26/21 10:13 Medical Decision Making Patient is a pleasant 35-year-old male presented chief complaint of laceration to the right eyebrow. States that he slipped on conditioner in the shower this morning and fell striking his head. Denies any injuries from the incident. Denies any change in vision. No nausea or vomiting. Tenderness at the area where the laceration is but denies any headache. Tetanus UTD, 01/08/2018. On exam, patient appears nontoxic. Is a 4 cm curvilinear laceration running through the center of the right eyebrow. This extends up onto the forehead. He did have this closed initially with butterflies. However, despite butterflies he remains a decent gap between the skin edges in the eyebrow. Extraocular movements are intact. No pain elsewhere around the orbital rim. No evidence to suggest infection. No crepitus. Pupils equal and reactive. No pain palpation about the head elsewhere. Nothing to suggest skull fracture. No midline tenderness along cervical spine. Patient has history/benefit as well as expected procedural steps associated with closure. He voiced understanding and wished to proceed Please see procedure note. Patient tolerated this well. Wound was explored to base in a bloodless field with no foreign body or debris noted. No deep structures appear to be involved. In the eyebrow, #4 simple interrupted 6-0 Monocryl sutures were placed.on the forehead, the skin edges are. Well approximated without any tension on the wound when at rest. This area was cleansed and then closed with adhesive. Patient and I discussed care of adhesive, absorbable stitches and wound discussed in detail. We discussed signs of infection and when to seek care rugently once again. Advised f/u with PCP. All of his questions and concerns were addressed, he is in agreement with this plan. HPI General Mode of arrival: ambulatory . Date/Time Provider Initiated Documentation: 09/26/21 09:26 . Limitations to Documentation: no limitations . Information obtained by: patient and RN notes reviewed . History of Present Illness 35 year old M presents to the emergency department with the chief complaint of facial laceration, described as moderate, with intensity rated at 3. Quality is described as aching, and is localized to the face. Patient reports no radiation. Patient started experiencing this minute(s) and it has been constant. No relieving factors improve symptom(s), No exacerbating factors reported . Patient notes no other symptoms.. Patient did receive the following treatments prior to arrival, none Related Data Home Medications Medication Instructions Recorded Confirmed acetaminophen 500 mg PO TID PRN 01/25/21 09/26/21 hydroxyzine HCl 25 mg PO TID 06/22/21 06/26/21 ondansetron HCl [Zofran] 4 mg PO Q8H PRN 06/22/21 06/26/21 trazodone 100 mg PO QHS 06/22/21 06/26/21 pantoprazole 40 mg PO DAILY@0730 #30 tab 06/24/21 06/26/21 sucralfate [Carafate] 1 g PO BID #60 tab 06/24/21 06/26/21 metoclopramide HCl [Reglan] 10 mg PO Q6H PRN #10 tab 06/26/21 Previous Rx's Medication Instructions Recorded pantoprazole 40 mg PO DAILY@0730 #30 tab 06/24/21 sucralfate [Carafate] 1 g PO BID #60 tab 06/24/21 metoclopramide HCl [Reglan] 10 mg PO Q6H PRN #10 tab 06/26/21 Allergies Allergy/AdvReac Type Severity Reaction Status Date / Time Iodinated Contrast Media Allergy Unknown ITCHING Verified 06/26/21 12:56 [Iodinated Contrast Media - Oral and] General Stated Complaint: Laceration NADIRA: 4 Review of Systems Constitutional Constitutional: Reports as per HPI, Denies chills, Denies fever(s) and Denies headache(s) Eyes Eyes: Reports as per HPI, Denies blurry vision and Denies change in vision ENT Ears, Nose, Mouth, and Throat: Denies dental pain, Denies dizziness, Denies ear discharge, Denies otalgia, Reports facial pain (over eyebrow where laceration if), Denies headache(s), Denies epistaxis, Denies nasal congestion, Denies nasal discharge and Denies nasal trauma Gastrointestinal Gastrointestinal: Denies nausea and Denies vomiting Musculoskeletal Musculoskeletal: Reports as per HPI Integumentary/Breasts Skin/Breast: Reports as per HPI Neurologic Neurologic: Reports as per HPI, Denies dizziness, Denies headache(s), Denies sensory deficit and Denies paresthesias PFSH Medical History Allergic shiners (03/22/17) Chronic pain Depression hemorrhaging Post operative hemorrhaging Hemorrhoids Telangiectasia (03/22/17) Thrombosed hemorrhoids Surgical History H/O hemorrhoidectomy Incision & Drainage, Abscess or Hematoma Hemorrhoid Social History Smoking/Tobacco Use Status: Current-Occasional Tobacco Type: cigarettes Smoking risk assessment performed?: Yes Alcohol Intake: current Alcohol Intake frequency: a few times a month Drug use: Current Sobriety Substance use type: marijuana Current gender identity: male Do you feel safe at home: Yes Do you feel safe in your relationship?: Yes Exam Const General: cooperative, healthy appearing, comfortable, no acute distress and well developed Nutritional Appearance: average body habitus and well nourished Orientation: alert and awake [facility] Head: no palpable skull fracture, no Rao's sign, contusion, no hematomas, no palpable skull fracture and no raccoon eyes Head images: 1. Curvilinear laceration extending through the eyebrow on the forehead. Wound edges are by approximately 5 mm in the eyebrow itself but lying approximate fashion from forehead. In total, wound is approximately 4 cm in length. No deep structure involvement. Extraocular movements are intact. No e vidence to suggest fracture. Ears: hearing grossly normal bilaterally, external ears normal and TM's normal bilaterally General nose exam: external nose normal and nares normal Face and sinus: normal facial exam, sinuses nontender and no maxillary instability Mouth: oral mucosae normal and lip normal Teeth and gingiva: dentition normal Eyes General: appearance normal, both eyes and all related structures Alignment and Position: alignment normal and position normal Eyelids: eyelids normal Pupils: PERRL and normal by confrontation EOM: EOM intact bilaterally Neck Neck: normal visual inspection and full ROM Resp Effort & Inspection: normal respiratory effort, able to speak in complete sentences and no respiratory distress Cardio Rate: regular rate Rhythm: regular rhythm Back/Spine/Pelvis Cervical Spine: normal cervical lordosis, cervical ROM normal, No cervical muscular tenderness, No pain with cervical ROM, No cervical spinal tenderness and No step off deformity Neuro General: patient alert and patient awake Cognition: normal cognition Speech: speech normal Gait: normal gait Sensory Exam: no sensory deficits noted Psych Appearance: grossly normal and well kempt Mental Status: mental status grossly normal Speech and Movement: speech and movement normal Course Vital Signs Vital signs: Vital Signs Pulse 74 09/26/21 09:15 Respiratory Rate 18 09/26/21 09:15 Blood Pressure 107/65 09/26/21 09:15 Pulse Oximetry 100 09/26/21 09:15 Temperature Source Skin 09/26/21 09:15 Pulse 74 09/26/21 09:15 Respiratory Rate 18 09/26/21 09:15 Respiratory Effort Non-Labored 09/26/21 09:18 Blood Pressure 107/65 09/26/21 09:15 Blood Pressure Position Sitting 09/26/21 09:15 Pulse Oximetry 100 09/26/21 09:15 Oxygen Delivery Method Room Air 09/26/21 09:15 Oxygen Flow Rate 0 09/26/21 09:15 Pain Level 3 09/26/21 09:15 Procedures Laceration Laceration 1: Site: face Side (If applicable): right Size (cm): 4 Description: linear (curvilinear) Depth: simple, single layer Local Anesthetic: Lidocaine 1% and with Epi Amount of anesthesia used (mL): 2 Pre-repair: wound explored and irrigated extensively Skin layer closed with: other (monocryl) Size (cm): 6-0 Number of sutures: 4 Technique: simple, interrupted
== END 2021-09-26 10:13 | disposition home or self-care (01) ==
PROVIDERS: Emergency Provider Physician Assistant; PCP Physician Assistant
DX: S01.111A Laceration without foreign body of right eyelid and periocular area, initial encounter (principal); W01.198A Fall on same level from slipping, tripping and stumbling with subsequent striking against other object, initial encounter
CPT/HCPCS: 12013

== ENCOUNTER 2022-06-08 16:05 | Emergency (ER) | payer MEDICAID, SELFPAY ==
--- NOTE | 2022-06-08 16:00 | DI.US_ITS ---
Exam(s) US SCROTUM EXAM: US SCROTUM CLINICAL HISTORY: R/O torsion. TECHNIQUE: Scrotal ultrasound performed using grayscale, color-flow and spectral Doppler analysis. COMPARISON: No exams were available for comparison FINDINGS: Right testicle: 4.2 x 2.7 x 2.9 cm Left testicle: 4.7 x 2.1 x 3.3 cm Echogenicity: Normal. Contour: Smooth. Mass: None seen. Microlithiasis: None. Hydrocele: Minimal left hydrocele with debris. Variocele: Bilateral Hernia: No peristalsing bowel loop identified. Epididymis: Normal. DOPPLER: Color: Symmetric and uniform, no hyperemia. Duplex: Bilateral testicular arterial waveforms visualized. IMPRESSION: Normal appearing bilateral testicles. No evidence of torsion. Bilateral varicoceles. DATA REPOSITORY:
[2022-06-08 16:10] VITALS: BP 141/80; PULSE 80; RESP 20; O2SAT 95
--- NOTE | 2022-06-08 16:22 | ED.GENADUL_ITS ---
Discharge Plan Disposition Patient Disposition: HOME Condition: Stable Discharge Details Clinical Impression: Bilateral varicoceles Primary Care Provider: Patrick Stanford ED Provider: Lucy Luke Discharge Instructions Instructions: Varicocele (ED) Additional Instructions: At this time the ultrasound shows no evidence for torsion you have good blood flow to both your testes. Does show varicocele which is congestion of the veins. Please wear snug fitting underwear. Please take Tylenol or Ibuprofen with food every 4-6 hours as needed for pain and swelling. If you have continued pain please follow-up with urology. Follow up with primary care provider in 3-5 days. Return to ED sooner if any worsening or concerns. Increase oral fluids. Referrals: Patrick Stanford [Primary Care Provider] - 5 days Bailey Nance DNP [NURSE PRACTITIONER] - 1 week Medical Decision Making 1653: Preliminary US report received from [facility], no torsion, small right sided hydrocele, good blood flow bilateral testes, questionable varioceles. Patient much more comfortable at reevaluation he is sleeping breathing even nonlabored We will give her referral for urology. Discussed strict return instructions and home care. Verbalized understanding. This text was generated using Wavestream[employer] system, please disregard any oddities of phrase or misspellings. Medical Records Medical records reviewed: Yes I reviewed the patient's medical records. Imaging Data Radiologic Study: Imaging: Ultrasound Radiologist's impression: TECHNIQUE: Imaging protocol: Real-time ultrasound of the scrotum and contents with color Doppler and image documentation. COMPARISON: CT ABDOMEN PELVIS WO 04/24/2020 11:37 AM FINDINGS: Right testicle: Normal. No mass. No torsion. Normal vascular flow. Left testicle: Normal. No mass. No torsion. Normal vascular flow. Epididymides: Normal. Scrotum: Bilateral varicoceles, larger on the left. Small complex left hydrocele with debris. IMPRESSION: 1. Bilateral varicoceles, larger on the left. 2. Small complex left hydrocele with debris. Thank you for allowing us to participate in the care of your patient. Dictated and Authenticated by: Jose Ware MD Lab Data Lab results reviewed: Yes I reviewed the patient's lab results. Labs: Laboratory Tests Range/Units 06/08/22 06/08/22 17:15 17:15 WBC (4.4-10.8) 10^3/uL 7.67 RBC (4.36-5.78) 10^6/uL 4.40 Hgb (13.5-17.5) g/dL 12.2 L Hct (40.0-50.0) % 36.6 L MCV (80-95) fL 83 MCH (27.0-33.0) pg 27.7 MCHC (32.0-36.0) % 33.3 RDW (11.8-14.1) % 13.4 Plt Count (130-400) 10^3/uL 252 MPV (8.0-11.0) fL 9.4 Immature Gran % 0.4 Neutrophils % 61.2 Lymphocytes % 26.3 Monocytes % 8.5 Eosinophils % 2.6 Basophils % 1.0 Nucleated RBC % (0.0-0.3) % 0.0 Absolute Neutrophils (1.2-6.7) 10^3/uL 4.69 Absolute Lymphocytes (1.2-3.4) 10^3/uL 2.02 Absolute Monocytes (0.1-0.8) 10^3/uL 0.65 Absolute Eosinophils (0.0-0.7) 10^3/uL 0.20 Absolute Basophils (0.0-0.2) 10^3/uL 0.08 Sodium (136-145) mmol/L 141 Potassium (3.5-5.1) mmol/L 3.3 L Chloride (98-107) mmol/L 105 Carbon Dioxide (21.0-32.0) mmol/L 28.0 Anion Gap (3-11) mmol/L 8.0 BUN (7-18) mg/dL 15 Creatinine (0.70-1.30) mg/dL 0.9 Estimated GFR/1.73 m2 (mL/min/1.73m2) >= 60.00 Glucose (74-106) mg/dL 99 Calcium (8.5-10.1) mg/dL 8.9 Total Bilirubin (0.2-1.0) mg/dL 0.5 AST (15-37) U/L 18 ALT (16-63) U/L 25 Alkaline Phosphatase (46-116) U/L 56 Total Protein (6.4-8.2) g/dL 7.4 Albumin (3.4-5.0) g/dL 3.9 HPI General Mode of arrival: ambulatory . Date/Time Provider Initiated Documentation: 06/08/22 16:10 . Limitations to Documentation: no limitations . Information obtained by: patient, RN notes reviewed and old records reviewed . HPI Narrative: 36-year-old male presents to the ER with chief complaint of right groin pain which began this morning around 6 AM which progressively worsened throughout the day. He presents doubled over in pain. He reports he did urinate approximately 2 hours prior to arrival. He denies any known injury. He reports that he crossed his legs this morning and had increase in pain. Denies any nausea vomiting diarrhea or any other associated symptoms. Related Data Allergies Allergy/AdvReac Type Severity Reaction Status Date / Time Iodinated Contrast Media Allergy Unknown ITCHING Verified 06/08/22 16:17 [Iodinated Contrast Media - Oral and] General Stated Complaint: Male Reproductive Problem NADIRA: 3 Review of Systems All systems reviewed & are unremarkable except as noted in HPI and below Genitourinary Genitourinary: Reports as per HPI and Reports testicular pain (Right side) [facility] All Active Problems (Updated 06/08/22 @ 17:55 by Lucy Luke NP) Nausea & vomiting (Acute) Laceration of face (Acute) Facial trauma (Acute) Bilateral varicoceles (Acute) GERD (gastroesophageal reflux disease) (Chronic) Opiate dependence (Chronic) Vasovagal syncopes (Acute) Discharge planning issues (Acute) DVT prophylaxis (Acute) Upper respiratory infection, viral (Acute) Viral illness (Acute) Syncope (Chronic) Concussion (Acute) Allergic shiners (Acute 03/22/17) Telangiectasia (Acute 03/22/17) Opioid dependence in remission (Chronic) Tobacco dependence (Chronic) Medical History Chronic pain Depression hemorrhaging Post operative hemorrhaging Hemorrhoids Thrombosed hemorrhoids Surgical History H/O hemorrhoidectomy Incision & Drainage, Abscess or Hematoma Hemorrhoid Social History Smoking/Tobacco Use Status: Current-Occasional Tobacco Type: cigarettes Smoking risk assessment performed?: Yes Alcohol Intake: current Alcohol Intake frequency: a few times a month Substance use type: does not use Current gender identity: male Do you feel safe at home: Yes Do you feel safe in your relationship?: Yes Exam Narrative Exam Narrative: Constitutional: Alert and oriented x3. Appears stated age. Normal body habitus. Head: Normocephalic, no trauma. Eyes: Pupils PERRL, Red reflex noted, EOM's intact. Eyelids symmetrical without lesions, discharge, or swelling. ENT: Bilateral TM's WNL, External ear normal to inspection, no mastoid TTP, swelling, or erythema, Nasal turbinates WNL, no nasal discharge. Normal dentition, Posterior pharynx WNL, no exudate. Chest: RRR, Normal S1, S2, distal pulses intact. Resp: Lungs clear to auscultation bilaterally, no wheezes, rales, or rhonchi. Abdomen: Soft, non-distended, Normoactive bowel sounds all 4 quads. Musculoskeletal: Normal gait, 5/5 strength to all four extremities. Skin: No suspicious rashes or lesions. Capillary refill less than 2 sec. Neurologic: Cranial nerves II-XII intact. Alert and oriented x 3. Motor: No deficits noted. Sensory: Intact bilaterally all 4 extremities. Reflexes: DTR's intact bilaterally.. Hematologic/Lymphatic: No ecchymosis, no lymphadenopathy. Male General Exam: Yes tenderness Scrotum: cremasteric reflex absent and other (Positive retracted right testicle, it is soft, worse with elevation.) Course Vital Signs Vital signs: Vital Signs Pulse 80 06/08/22 16:10 Respiratory Rate 20 06/08/22 16:10 Blood Pressure 141/80 H 06/08/22 16:10 Pulse Oximetry 95 06/08/22 16:10 Pulse 80 06/08/22 16:10 Respiratory Rate 20 06/08/22 16:10 Blood Pressure 141/80 H 06/08/22 16:10 Blood Pressure Position Sitting 06/08/22 16:10 Pulse Oximetry 95 06/08/22 16:10 Oxygen Delivery Method Room Air 06/08/22 16:10 Oxygen Flow Rate 0 06/08/22 16:10 Pain Level 10 06/08/22 16:10
[2022-06-08 17:24] LABS: Abs Immature Grans 0.03 10^3/uL (0.0-0.06); Absolute Basophil Count 0.08 10^3/uL (0.0-0.2); Absolute Lymphocyte Count 2.02 10^3/uL (1.2-3.4); Absolute Monocyte Count 0.65 10^3/uL (0.1-0.8); Absolute Neutrophil Count 4.69 10^3/uL (1.2-6.7); Eosinophils % 2.6; HCT 36.6 % (40.0-50.0); HGB 12.2 g/dL (13.5-17.5); Immature Grans % 0.4; Lymphocytes % 26.3; MCH 27.7 pg (27.0-33.0); MCHC 33.3 % (32.0-36.0); MCV 83 fL (80-95); MPV 9.4 fL (8.0-11.0); Monocytes % 8.5; Neutrophils % 61.2; Platelet Count 252 10^3/uL (130-400); RDW 13.4 % (11.8-14.1); WBC 7.67 10^3/uL (4.4-10.8)
--- NOTE | 2022-06-08 17:38 | DI.VRAD_ITS ---
PROCEDURE INFORMATION: Exam: US Scrotum Exam date and time: 06/08/2022 4:23 PM Age: 36 years old Clinical indication: Scrotum pain; Patient HX: Acute lt testicular pain S/P crossing of legs. R/O torsion. TECHNIQUE: Imaging protocol: Real-time ultrasound of the scrotum and contents with color Doppler and image documentation. COMPARISON: CT ABDOMEN PELVIS WO 04/24/2020 11:37 AM FINDINGS: Right testicle: Normal. No mass. No torsion. Normal vascular flow. Left testicle: Normal. No mass. No torsion. Normal vascular flow. Epididymides: Normal. Scrotum: Bilateral varicoceles, larger on the left. Small complex left hydrocele with debris. IMPRESSION: 1. Bilateral varicoceles, larger on the left. 2. Small complex left hydrocele with debris. Dictated and Authenticated by: Jose Ware MD. Ordering:BARNEY Ayala MD
[2022-06-08] MEDS: MORPHine 4 MG/ML SYR IVP (17:39)
[2022-06-08] MEDS: Ondansetron 4 MG/2 ML VIAL IVP (17:40)
[2022-06-08 17:43] LABS: ALT 25 U/L (16-63); AST 18 U/L (15-37); Albumin 3.9 g/dL (3.4-5.0); Alkaline Phosphatase 56 U/L (46-116); BUN 15 mg/dL (7-18); Bilirubin, Total 0.5 mg/dL (0.2-1.0); CREATININE 0.9 mg/dL (0.70-1.30); Calcium 8.9 mg/dL (8.5-10.1); Chloride 105 mmol/L (98-107); Glucose 99 mg/dL (74-106); Potassium 3.3 mmol/L (3.5-5.1); Sodium 141 mmol/L (136-145); Total Protein 7.4 g/dL (6.4-8.2)
--- NOTE | 2022-06-08 18:10 | NUR.NOTE ---
Nursing Note: Pt info faxed to Urology for follow up in a week for hydrocele. Adriana, ED
[2022-06-08] MEDS: Normal Saline 1,000 ML 1000 ML IV (18:37)
== END 2022-06-08 18:37 | disposition home or self-care (01) ==
PROVIDERS: Emergency Provider Registered Nurse Emergency; PCP Physician Assistant
DX: I86.1 Scrotal varices (principal); N43.3 Hydrocele, unspecified; F17.210 Nicotine dependence, cigarettes, uncomplicated
CPT/HCPCS: 80053; 96361; 96374; 96375; 99284; 76870; 81003; 85025; J2270; J2405

== ENCOUNTER 2022-07-05 21:28 | Emergency (ER) | payer MEDICAID, SELFPAY ==
[2022-07-05 21:31] VITALS: BP 136/83; PULSE 94; RESP 16; TEMP 37; O2SAT 98
--- NOTE | 2022-07-05 22:00 | DI.RAD_ITS ---
Exam(s) XR MANDIBLE LIMITED EXAM: XR MANDIBLE LIMITED INDICATION: Jaw pain, R/O Fracture. COMPARISON: No exams were available for comparison TECHNIQUE: 2D digital imaging was performed. Four images were obtained. FINDINGS: There is no acute fracture or dislocation. No fluid levels are seen in the visualized paranasal sinu ses. The bones are normally mineralized. The soft tissues are unremarkable. IMPRESSION: No acute fracture or dislocation. DATA REPOSITORY: RADIATION DOSE DELIVERED:
--- NOTE | 2022-07-05 22:00 | DI.RAD_ITS ---
Exam(s) XR CERVICAL SP MURCIA TRAUMA 2-3V EXAM: XR CERVICAL SP MURCIA TRAUMA 2-3V CLINICAL HISTORY: Pain, Altercation. TECHNIQUE: 2D digital imaging was performed. Two images were obtained. AP and lateral views of the cervical spine were obtained. COMPARISON: No exams were available for comparison FINDINGS: BONES: No fracture or destructive lesion. Small endplate osteophytes are seen from C3 through C6. DISKS: There is disc space narrowing at C3-C4 and C5-C6. ALIGNMENT: Cervical spinal alignment is within normal limits. SOFT TISSUE: Normal. The lung apices are clear. IMPRESSION: No acute fracture or subluxation. DATA REPOSITORY: RADIATION DOSE DELIVERED:
--- NOTE | 2022-07-05 22:12 | ED.GENADUL_ITS ---
Discharge Plan Disposition Patient Disposition: [facility] Condition: Stable Discharge Details Clinical Impression: Contusion of auricle of right ear, Closed head injury Primary Care Provider: Patrick Stanford ED Provider: Lucy Luke Home Meds and New Rx's Prescriptions: No Action No Known Home Meds Discharge Instructions Instructions: Head Injury (ED), Contusion in Adults (ED) Additional Instructions: At this time the x-rays show no broken bones or fractures. Apply ice. Please take Tylenol or Ibuprofen with food every 4-6 hours as needed for pain and swelling. Follow up with primary care provider in 3-5 days. Return to ED sooner if any worsening or concerns. Increase oral fluids. Referrals: Patrick Stanford [Primary Care Provider] - 1 week Discharge Data Discharge Date/Time-TO BE ENTERED AT DEPARTURE: 07/05/22 23:30 Medical Decision Making X-ray of C-spine and mandible ordered. Ice pack, Tylenol. X-ray is within normal limits. Patient is alert and oriented x4. I did confirm with police that patient did not lose consciousness on scene. Discussed home care ice Tylenol ibuprofen with patient discussed strict return instructions. Patient released into the care of law enforcement. This text was generated using [employer] dictation system, please disregard any oddities of phrase or misspellings. HPI General Mode of arrival: ambulatory . Date/Time Provider Initiated Documentation: 07/05/22 21:38 . Limitations to Documentation: no limitations . Information obtained by: patient, police and RN notes reviewed . HPI Narrative: 36-year-old male presents to the ER in company by law enforcement with chief complaint of right side face and jaw pain. He does have swelling and contusion noted to his right ear, he is complaining of right jaw pain, C-spine tenderness and head ache. He did not lose consciousness per police report on scene. He is alert and oriented x4. Past medical history includes GERD, opioid withdrawal, he is able to open his mouth approximately 30% no significant deformity however he does have some swelling noted to the right side of his jaw. Related Data Home Medications Medication Instructions Recorded Confirmed Unknown [No Known Home Meds] 07/05/22 07/05/22 Allergies Allergy/AdvReac Type Severity Reaction Status Date / Time Iodinated Contrast Media Allergy Unknown ITCHING Verified 07/05/22 21:37 [Iodinated Contrast Media - Oral and] General Stated Complaint: FacialProb NADIRA: 3 Review of Systems All systems reviewed & are unremarkable except as noted in HPI and below Constitutional Constitutional: Reports as per HPI and Reports headache(s) ENT Ears, Nose, Mouth, and Throat: Reports as per HPI, Reports otalgia, Reports facial pain, Reports headache(s), Reports mouth pain and Reports neck pain Cardiovascular Cardiovascular: Denies chest pain and Denies dyspnea Respiratory Respiratory: Denies dyspnea Gastrointestinal Gastrointestinal: Denies abdominal pain Musculoskeletal Musculoskeletal: Reports neck pain Neurologic Neurologic: Reports headache(s) [facility] All Active Problems (Updated 07/05/22 @ 23:25 by Lucy Luke NP) Nausea & vomiting (Acute) Laceration of face (Acute) Facial trauma (Acute) Bilateral varicoceles (Acute) Contusion of auricle of right ear (Acute) Closed head injury (Acute) GERD (gastroesophageal reflux disease) (Chronic) Opiate dependence (Chronic) Vasovagal syncopes (Acute) Discharge planning issues (Acute) DVT prophylaxis (Acute) Upper respiratory infection, viral (Acute) Viral illness (Acute) Syncope (Chronic) Concussion (Acute) Allergic shiners (Acute 03/22/17) Telangiectasia (Acute 03/22/17) Opioid dependence in remission (Chronic) Tobacco dependence (Chronic) Medical History Chronic pain Depression hemorrhaging Post operative hemorrhaging Hemorrhoids Thrombosed hemorrhoids Surgical History H/O hemorrhoidectomy Incision & Drainage, Abscess or Hematoma Hemorrhoid Social History Smoking/Tobacco Use Status: Current-Occasional Tobacco Type: cigarettes Smoking risk assessment performed?: Yes Alcohol Intake: former Drug use: Daily Substance use type: marijuana Current gender identity: male Do you feel safe at home: Yes Do you feel safe in your relationship?: Yes Exam Narrative Exam Narrative: General: Well Developed, Awake and Alert, conversant. Skin: Warm and Dry HEENT: Head: No palpable deformities, Normocephalic Eyes: Pupils PERRLA, EOM's intact. No periorbital eccymosis or step off Ears: Canal patent. Tympanic membranes are clear . Ecchymosis and swelling to right antihelix. Contusion noted to postauricular. Nose/Face: Tenderness to right jaw Mouth/Throat: No intraoral trauma. Teeth and mandible are intact. Neck: Tenderness with palpation, no step off, no deformity to palpation of C- spine. Trachea midline. Chest: No surface trauma. Nontender without crepitus or deformity. Lungs clear to ausculatation bilaterally. Heart: RRR, no rubs, murmurs or gallop. Abdomen: No abrasions, ecchymosis, or surface trauma. Nondistended. Nontender to palpation no guarding, rebound, or rigidity. Pelvis: Nontender to palpation and stable to compression. Femoral pulses strong and equal Extremities: no surface trauma. Sensation intact. Peripheral pulses intact and equal. Neuro: ANO x4, GCS 15, cranial nerves II through XII intact. Motor and sensory exam nonfocal. Reflexes are symmetric. Course Vital Signs Vital signs: Vital Signs Temperature 37.0 C 07/05/22 21:31 Pulse 94 H 07/05/22 21:31 Respiratory Rate 16 07/05/22 21:31 Blood Pressure 136/83 07/05/22 21:31 Pulse Oximetry 98 07/05/22 21:31 Temperature 37.0 C 07/05/22 21:31 Temperature Source Oral 07/05/22 21:31 Pulse 94 H 07/05/22 21:31 Respiratory Rate 16 07/05/22 21:31 Respiratory Effort 07/05/22 21:31 Blood Pressure 136/83 07/05/22 21:31 Blood Pressure Position Sitting 07/05/22 21:31 Pulse Oximetry 98 07/05/22 21:31 Oxygen Delivery Method Room Air 07/05/22 21:31 Oxygen Flow Rate 0 07/05/22 21:31 Pain Level 10 07/05/22 21:31
[2022-07-05] MEDS: Acetaminophen 500 MG TAB 1000 MG PO (22:15)
--- NOTE | 2022-07-05 23:16 | DI.VRAD_ITS ---
PROCEDURE INFORMATION: Exam: XR Cervical Spine Exam date and time: 07/05/2022 10:42 PM Age: 36 years old Clinical indication: Injury or trauma; Injury date: 07/05/22; Injury details: Altercation, cervical pain TECHNIQUE: Imaging protocol: Radiologic exam of the cervical spine. Views: 2 or 3 views. COMPARISON: CT HEAD WO 06/22/2021 7:49 PM FINDINGS: Bones/joints: No anterolisthesis or retrolisthesis. Moderate disc space narrowing with osteophyte formation noted at C3-C4, C4-C5, and C5-C6. Endplates are intact. Atlantodental interval is normal. AP and lateral radiographs of the cervical spine only. The AP view is rotated. Soft tissues: Unremarkable. Lungs: Lung apices are clear. IMPRESSION: No acute osseous abnormality. If symptoms persist, follow-up imaging is advised. Dictated and Authenticated by: Bridger Elizabeth MD. Ordering:BARNEY Ayala MD
--- NOTE | 2022-07-05 23:17 | DI.VRAD_ITS ---
PROCEDURE INFORMATION: Exam: XR Right Mandible Exam date and time: 07/05/2022 10:44 PM Age: 36 years old Clinical indication: Injury or trauma; Blunt trauma (contusions or hematomas); Right; Injury date: 07/05/22; Injury details: Altercation, jaw pain; Additional info: Altercation, right jaw pain TECHNIQUE: Imaging protocol: XR of the Right mandible. Views: Less than 4 views. COMPARISON: CT HEAD WO 06/22/2021 7:49 PM FINDINGS: Sinuses: No layering fluid in the maxillary sinuses. Bones/joints: No evidence of fracture. Normal position of the mandible. Negative for bony erosion or destructive change. Soft tissues: No soft tissue air. No foreign bodies. IMPRESSION: No acute osseous abnormality. If symptoms persist, follow-up imaging is advised. Dictated and Authenticated by: Bridger Elizabeth MD. Ordering:BARNEY Ayala MD
[2022-07-05 23:30] VITALS: BP 132/76; PULSE 74; RESP 16; TEMP 37; O2SAT 100
== END 2022-07-05 23:30 | disposition home or self-care (01) ==
PROVIDERS: Emergency Provider Registered Nurse Emergency; PCP Physician Assistant
DX: S00.431A Contusion of right ear, initial encounter (principal); S09.90XA Unspecified injury of head, initial encounter; R68.84 Jaw pain; F17.210 Nicotine dependence, cigarettes, uncomplicated; M54.2 Cervicalgia; X58.XXXA Exposure to other specified factors, initial encounter
CPT/HCPCS: 99285; 70100; 72040; 99282

== ENCOUNTER 2023-04-30 21:22 | Emergency (ER) | payer MEDICAID, SELFPAY ==
[2023-04-30 21:25] VITALS: BP 155/94; PULSE 99; RESP 18; TEMP 37.2; O2SAT 99
--- NOTE | 2023-04-30 21:45 | DI.RAD_ITS ---
Exam(s) XR HAND LT COMPLETE EXAM: XR HAND LT COMPLETE CLINICAL HISTORY: pain s/p fall. TECHNIQUE: 2D digital imaging was performed. COMPARISON: No exams were available for comparison FINDINGS: 3 views No evidence of acute fracture nor dislocation. Fingers are held in flexion. No radiopaque foreign b viktoriya. No osseous lesions. No erosions. IMPRESSION: No acute fractures evident in the hand. DATA REPOSITORY: RADIATION DOSE DELIVERED:
--- NOTE | 2023-04-30 21:45 | DI.RAD_ITS ---
Exam(s) XR WRIST LT COMPLETE EXAM: XR WRIST LT COMPLETE CLINICAL HISTORY: pain s/p fall. TECHNIQUE: 2D digital imaging was performed. COMPARISON: No exams were available for comparison FINDINGS: 3 views No evidence of acute fracture or dislocation. No significant ulnar variance. Scaphoid and scapholun ate distance normal. No osseous lesions. No erosions. No radiopaque foreign body. IMPRESSION: No significant osseous findings in the wrist. DATA REPOSITORY: RADIATION DOSE DELIVERED:
--- NOTE | 2023-04-30 21:52 | ED.GENADUL_ITS ---
Discharge Plan Disposition Condition: Stable Discharge Details Chief Complaint: Orthopedic Clinical Impression: Contusion of left wrist Primary Care Provider: Patrick Stanford ED Provider: Bridger Valenzuela Home Meds and New Rx's Prescriptions: No Action No Known Home Meds Discharge Instructions Instructions: Contusion in Adults (ED) Additional Instructions: wear the splint until you are pain free follow up with your primary care provider if pain continues in a week if you feel more ill or have new symptoms such as difficulty breathing return to the emergency department Medical Decision Making 37 yo male with hx of substance abuse who comes in with ems after he reportedly was found by police screaming and reported to ems that he used marijuana but then told pd he used cocaine and opiates, he was sent here due to him having left wrist pain. He arrives hemodyanmically stable speaking clearly in no distress, has mild pressure speech, no si/hi. He has no signs of trauma to the head, clear lungs, soft nontender abdomen, no c/t/l spine tenderness. He has tenderness over the mid hand on the posterior surface with no palpable or visible deformity. He states the pain started after he was playing with his dog this morning and fell back landing on his left hand, denies hitting his head or other injuries. He has pain in the ulnar surface of his wrist, he does have intact sensation and pulses, full rom. No tenderness in the forearm, elbow, humerus or shoulder. Will proceed with xrays of the wrist and hand. He reports to me he used marijuana earlier, currently calm and cooperative. xrays unremarkable on my read, will place in splint and advised to waer it until pain free and to see pcp if pain continues in a week, he is under the influence of drugs currentlyand has no one he can call to drive him home, he will be sent to [facility] until sober. Differential Diagnosis Differential Diagnosis: sprain, strain, fracture Imaging Data Radiologic Study: Attestation: I personally reviewed and interpreted this imaging study as follows: Imaging: X-Ray My impression: no acute findings wrist xray Radiologic Study #2: Attestation: I personally reviewed and interpreted this imaging study as follows: Imaging: X-Ray My impression: no acute findings hand xray HPI General Mode of arrival: EMS . Date/Time Provider Initiated Documentation: 04/30/23 21:30 . Limitations to Documentation: no limitations . Information obtained by: patient . History of Present Illness 37 year old M pr esents to the emergency department with the chief complaint of left wrist pain, described as moderate, Patient started experiencing this hour(s) (12) and it has been constant. No relieving factors improve symptom(s), No exacerbating factors reported . Patient notes no other symptoms.. Patient did receive the following treatments prior to arrival, none Related Data Home Medications Medication Instructions Recorded Confirmed Unknown [No Known Home Meds] 07/05/22 07/05/22 Allergies Allergy/AdvReac Type Severity Reaction Status Date / Time Iodinated Contrast Media Allergy Unknown ITCHING Verified 07/05/22 21:37 [Iodinated Contrast Media - Oral and] General Stated Complaint: Orthopedic NADIRA: 4 Review of Systems All systems reviewed & are unremarkable except as noted in HPI and below Constitutional Constitutional: Denies chills, Denies fever(s) and Denies weakness Eyes Eyes: Denies loss of vision ENT Ears, Nose, Mouth, and Throat: Denies change in voice Cardiovascular Cardiovascular: Denies chest pain and Denies dyspnea Respiratory Respiratory: Denies cough and Denies dyspnea Gastrointestinal Gastrointestinal: Denies abdominal pain, Denies nausea and Denies vomiting Musculoskeletal Musculoskeletal: Denies joint swelling Neurologic Neurologic: Denies loss of vision and Denies weakness PFSH All Active Problems (Updated 04/30/23 @ 22:17 by Bridger Valenzuela MD) Nausea & vomiting (Acute) Laceration of face (Acute) Facial trauma (Acute) Contusion of left wrist (Acute) GERD (gastroesophageal reflux disease) (Chronic) Opiate dependence (Chronic) Vasovagal syncopes (Acute) Discharge planning issues (Acute) DVT prophylaxis (Acute) Upper respiratory infection, viral (Acute) Viral illness (Acute) Syncope (Chronic) Concussion (Acute) Allergic shiners (Acute 03/22/17) Telangiectasia (Acute 03/22/17) Opioid dependence in remission (Chronic) Tobacco dependence (Chronic) Medical History Chronic pain Depression hemorrhaging Post operative hemorrhaging Hemorrhoids Thrombosed hemorrhoids Surgical History H/O hemorrhoidectomy Incision & Drainage, Abscess or Hematoma Hemorrhoid Social History Smoking/Tobacco Use Status: Current-Occasional Tobacco Type: cigarettes Smoking risk assessment performed?: Yes Alcohol Intake: former Drug use: Daily Substance use type: marijuana Details: past history of opiates, cocaine, recently got out of rehab Current gender identity: male Do you feel safe at home: Yes Do you feel safe in your relationship?: Yes Exam Const Orientation: alert and oriented x3 HENMT Head: normal to inspection Ears: external ears normal General nose exam: external nose normal Mouth: moist mucous membranes Eyes General: appearance normal, both eyes and all related structures Neck Neck: normal visual inspection Resp Effort & Inspection: normal respiratory effort and able to speak in complete sentences Cardio Rate: regular rate Skin General skin exam: no rashes or lesions noted Neuro General: patient alert and patient oriented x3 Extrem General: normal to inspection and capillary refill normal Psych Mental Status: mental status grossly normal Course Vital Signs Vital signs: Vital Signs Temperature 37.2 C 04/30/23 21:25 Pulse 99 H 04/30/23 21:25 Respiratory Rate 18 04/30/23 21:25 Blood Pressure 155/94 H 04/30/23 21:25 Pulse Oximetry 99 04/30/23 21:25 Temperature 37.2 C 04/30/23 21:25 Temperature Source Oral 04/30/23 21:25 Pulse 99 H 04/30/23 21:25 Respiratory Rate 18 04/30/23 21:25 Respiratory Effort Normal 04/30/23 21:28 Blood Pressure 155/94 H 04/30/23 21:25 Blood Pressure Position Sitting 04/30/23 21:25 Pulse Oximetry 99 04/30/23 21:25 Oxygen Delivery Method Room Air 04/30/23 21:25 Oxygen Flow Rate 0 04/30/23 21:25 Pain Level 8 04/30/23 21:25 PAWSS Have you Been Recently Intoxicated or Drunk Within the Last 30 days?: Yes Have you Ever Experienced Previous Episodes of Alcohol Withdrawal?: No Have you ever Experienced Withdrawal Seizures?: No Have you ever Experienced Delirium Tremens(DT)s?: No Have you ever undergone Alcohol Rehabilitation Treatment (i.e, inpt ot outpatient treatment programs)?: No Have you ever Experienced Blackouts?: No Have you ever Combined Alcohol with other Downers within the last 90 days?: Yes Have you ever Combined Alcohol with any other Substance of Abuse during the last 90 days?: No Evidence of Increased Autonomic Activity (i.e. HR>120, tremor, sweating, agitation, nausea)?: No Result: 1
--- NOTE | 2023-04-30 23:38 | DI.VRAD_ITS ---
PROCEDURE INFORMATION: Exam: XR Left Hand Exam date and time: 04/30/2023 10:01 PM Age: 37 years old Clinical indication: Pain; Hand; Left TECHNIQUE: Imaging protocol: Radiologic exam of the left hand. Views: 3 or more views. COMPARISON: CR XR FOREARM LT 11/11/2020 7:54 PM FINDINGS: Bones/joints: Normal trabecular architecture is seen throughout with no acute fractures detected. Soft tissues: Unremarkable. IMPRESSION: No acute fracture is seen. Dictated and Authenticated by: Alban Holland MD. Ordering:KYLEIGH Sparks MD
--- NOTE | 2023-04-30 23:39 | DI.VRAD_ITS ---
PROCEDURE INFORMATION: Exam: XR Left Wrist Exam date and time: 04/30/2023 10:06 PM Age: 37 years old Clinical indication: Pain; Wrist; Left TECHNIQUE: Imaging protocol: Radiologic exam of the left wrist. Views: 3 or more views. COMPARISON: CR XR WRIST LT COMP NAVICULAR 11/11/2020 7:50 PM FINDINGS: Bones/joints: Normal trabecular architecture is seen throughout with no acute fractures detected. Soft tissues: Unremarkable. IMPRESSION: No acute fracture is seen. Dictated and Authenticated by: Alban Holland MD. Ordering:KYLEIGH Sparks MD
== END 2023-04-30 22:26 | disposition home or self-care (01) ==
LOC: ER 22:20
PROVIDERS: Emergency Provider Emergency Medicine; PCP Physician Assistant
DX: S60.212A Contusion of left wrist, initial encounter (principal); M79.642 Pain in left hand; F17.210 Nicotine dependence, cigarettes, uncomplicated; W18.39XA Other fall on same level, initial encounter; Y93.K9 Activity, other involving animal care; Y92.018 Other place in single-family (private) house as the place of occurrence of the external cause; Y99.9 Unspecified external cause status
CPT/HCPCS: 29125; 99283; 73110; 73130

== ENCOUNTER 2023-05-05 07:37 | Emergency (ER) | payer MEDICAID, SELFPAY ==
[2023-05-05 07:40] VITALS: BP 130/64; PULSE 81; RESP 18; TEMP 37.2; O2SAT 95
--- NOTE | 2023-05-05 08:00 | DI.CT_ITS ---
Exam(s) CT UPPER EXTREMITY LT WO EXAM: CT UPPER EXTREMITY LT WO CLINICAL HISTORY: hand pain and edema TECHNIQUE: Imaging Protocol: Axial computed tomography images with coronal and sagittal reformatted images were created and reviewed. CONTRAST MATERIAL: Intravenous: Omnipaque 350 Contrast volume:structured data in ml Contrast route:I V - Oral: yes / no COMPARISON: CR,XR XR WRIST LT COMPLETE from 04/30/2023 FINDINGS: Osseous: No fractures evident. No evidence of osteomyelitis. No radiopaque foreign body. However, there is prominent subcutaneous inflammatory stranding extending from the mid level of the forearm in to the hand. The deep stranding is confluent border on fluid collection over a distance of 10 cm on the dorsal aspect of forearm. Similar findings seen over the dorsal aspect of the hand and wrist. N o soft tissue gas. IMPRESSION: Dorsal forearm, wrist, and hand inflammatory findings consistent with cellulitis. The deep subcutane ous stranding is confluent border on fluid collection. Recommend ultrasound follow-up over this area to determine if there is a true fluid collection which is delineable by US examination. RADIATION DOSE DELIVERED: 310.88mGy.cm Total DLP DATA REPOSITORY: All CT scans at this facility are submitted to the National Radiology Data Registry (NRDR) Dose Index Registry (DIR) with the [employer] (A[employer]). RADIATION OPTIMIZATION: All CT scans at this facility use at least one of these dose optimization te chniques: automated exposure control; mA and/or kV adjustment per patient size (includes targeted exa ms where dose is matched to clinical indication); or iterative reconstruction.
--- NOTE | 2023-05-05 08:11 | ED.GENADUL_ITS ---
Discharge Plan Disposition Patient Disposition: Against Medical Advice Discharge Details Clinical Impression: Cellulitis Primary Care Provider: Patrick Stanford ED Provider: Cj Nuñez Home Meds and New Rx's Prescriptions: No Action No Known Home Meds Discharge Instructions Instructions: Cellulitis (ED) Medical Decision Making Patient presenting to the emergency department for chief complaint of left hand swelling and pain. Patient was seen 5 days ago in the emergency department and was brought in by EMS due to a trip and fall. At that time he admitted to doing cocaine and opiates but denied any injection into that area. Patient had x-ray imaging done and was placed in a brace for suspected sprain or contusion to left wrist. Patient states for 2 days there was no issue but then 2 to 3 days ago started noticing some significant swelling to the left hand. Patient denies all other symptoms no systemic illness. Physical exam now shows significant and severe swelling to the left hand mostly on the dorsal aspect but now including the fingers and all the way up to the proximal forearm. Range of motion is severely limited due to pain and discomfort, pulse is intact along with cap refill and sensation. Of note I do see some proximal bruising to the forearm which patient states was from a fall along with a puncture wound to the dorsal aspect of the hand. I do question possible IV injection sites with severe cellulitis. Patient's vital signs are stable and no fever is noted. We will plan on checking patient's labs including blood cultures and CT imaging with concern for severe cellulitis. Pending results we will give patient IV fluids, vancomycin, and ketorolac Reviewed patient's labs and patient does have an elevated white count, CRP and ESR both elevated, lactate is normal, sodium slightly low at 131, chloride at 96, glucose 126. Total bilirubin and AST are elevated as well. CT imaging reviewed along with radiologist interpretation that does show dorsal hand wrist and forearm cellulitis with no fluid collection or gas being noted. Discussed admission with patient once vancomycin and fluids were completed. Patient states that he cannot be admitted at this time as he needs to go home and take care of his animals and things around his house. He states that he will come back once these things are taken care of. There was clearly expressed to patient severity of cellulitis and risk of sepsis or damage to his limb due to extent of infection if not treated properly. Patient states clear understanding of this and is alert and oriented x4 and does have decision-making capacity at this time. Patient signed out AMA due to him refusing admission at this time but he was informed to return as soon as possible to further discuss admission. Medical Records Medical records reviewed: Yes I reviewed the patient's medical records. Medical records narrative: Reviewed previous emergency department visit along with radiological imaging/radiologist interpretation. HPI General Mode of arrival: ambulatory . Date/Time Provider Initiated Documentation: 05/05/23 08:00 . Limitations to Documentation: no limitations . Information obtained by: patient and RN notes reviewed . History of Present Ill nolan 37 year old M presents to the emergency department with the chief complaint of Left hand swelling and pain, described as severe, Quality is described as aching and constant, and is localized to the left and upper extremity. Patient proximal. Patient started experiencing this day(s) (2) and it has been constant. Patient notes no other symptoms.. Patient did receive the following treatments prior to arrival, none Related Data Home Medications Medication Instructions Recorded Confirmed Unknown [No Known Home Meds] 07/05/22 05/05/23 Allergies Allergy/AdvReac Type Severity Reaction Status Date / Time Iodinated Contrast Media Allergy Unknown ITCHING Verified 07/05/22 21:37 [Iodinated Contrast Media - Oral and] General Stated Complaint: Cellulitis NADIRA: 3 Review of Systems Constitutional Constitutional: Denies chills and Denies fever(s) Cardiovascular Cardiovascular: Denies chest pain and Denies dyspnea Respiratory Respiratory: Denies dyspnea Gastrointestinal Gastrointestinal: Denies abdominal pain Musculoskeletal Musculoskeletal: Reports as per HPI, Reports arthralgias, Reports joint swel ling, Reports limited range of motion, Denies numbness, Reports radiating pain into limb and Reports stiffness Integumentary/Breasts Skin/Breast: Reports erythema, Reports skin pain and Reports skin swelling Neurologic Neurologic: Denies numbness PFSH All Active Problems (Updated 05/05/23 @ 11:21 by Cj Nuñez NP) Nausea & vomiting (Acute) Laceration of face (Acute) Facial trauma (Acute) Contusion of left wrist (Acute) Cellulitis (Acute) GERD (gastroesophageal reflux disease) (Chronic) Opiate dependence (Chronic) Vasovagal syncopes (Acute) Discharge planning issues (Acute) DVT prophylaxis (Acute) Upper respiratory infection, viral (Acute) Viral illness (Acute) Syncope (Chronic) Concussion (Acute) Allergic shiners (Acute 03/22/17) Telangiectasia (Acute 03/22/17) Opioid dependence in remission (Chronic) Tobacco dependence (Chronic) Medical History Chronic pain Depression hemorrhaging Post operative hemorrhaging Hemorrhoids Thrombosed hemorrhoids Surgical History H/O hemorrhoidectomy Incision & Drainage, Abscess or Hematoma Hemorrhoid Social History Smoking/Tobacco Use Status: Current-Occasional Tobacco Type: cigarettes Smoking risk assessment performed?: Yes Alcohol Intake: former Drug use: Daily Substance use type: marijuana and IV drugs Details: past history of opiates, cocaine, recently got out of rehab Current gender identity: male Do you feel safe at home: Yes Do you feel safe in your relationship?: Yes Exam Const General: cooperative, no acute distress and not ill appearing Orientation: alert, awake and oriented x3 HENMT Mouth: moist mucous membranes Resp Effort & Inspection: normal respiratory effort, able to speak in complete sentences and no respiratory distress Cardio Rate: regular rate Rhythm: regular rhythm Pulses: radial pulses present and normal peripheral pulses Skin General skin exam: no rashes or lesions noted Neuro General: patient alert, patient awake, patient oriented x3, moves all extremities and no focal motor deficits Sensory Exam: no sensory deficits noted Extrem General: normal exam except as noted Left upper extremity: elbow/forearm Details: tenderness, swelling Location: of the mid-shaft forearm and of the proximal forearm and abnormal ROM, wrist Details: tenderness, swelling and abnormal ROM and hand Details: normal capillary refill, neurosensory exam normal, tenderness (Diffuse with most painful area being dorsal hand), vascular exam Details: radial pulse present and normal capillary refill; not cool and no cyanosis, abnormal ROM of finger, swelling (Severe diffuse) and puncture wound; no lacerations and no ecchymosis Course Vital Signs Vital signs: Vital Signs Temperature 37.2 C 05/05/23 07:40 Pulse 81 05/05/23 07:40 Respiratory Rate 18 05/05/23 07:40 Blood Pressure 130/64 05/05/23 07:40 Pulse Oximetry 95 05/05/23 07:40 Temperature 37.2 C 05/05/23 07:40 Temperature Source Oral 05/05/23 07:40 Pulse 81 05/05/23 07:40 Respiratory Rate 18 05/05/23 07:40 Respiratory Effort Normal 05/05/23 07:42 Blood Pressure 130/64 05/05/23 07:40 Blood Pressure Position Sitting 05/05/23 07:40 Pulse Oximetry 95 05/05/23 07:40 Oxygen Delivery Method Room Air 05/05/23 07:40 Oxygen Flow Rate 0 05/05/23 07:40 Pain Level 10 05/05/23 07:40
[2023-05-05 08:41] LABS: Abs Immature Grans 0.05 10^3/uL (0.0-0.06); Absolute Basophil Count 0.09 10^3/uL (0.0-0.2); Absolute Lymphocyte Count 1.25 10^3/uL (1.2-3.4); Basophils % 0.7; Eosinophils % 1.5; HCT 39.8 % (40.0-50.0); HGB 13.5 g/dL (13.5-17.5); Immature Grans % 0.4; Lymphocytes % 9.5; MCH 28.8 pg (27.0-33.0); MCHC 33.9 % (32.0-36.0); MCV 85 fL (80-95); MPV 9.5 fL (8.0-11.0); Monocytes % 9.2; Neutrophils % 78.7; Platelet Count 361 10^3/uL (130-400); RBC 4.68 10^6/uL (4.36-5.78); RDW 12.7 % (11.8-14.1); RDW-SD 39.2 fL; WBC 13.21 10^3/uL (4.4-10.8)
[2023-05-05 08:42] LABS: Absolute Monocyte Count 1.22 10^3/uL (0.1-0.8); ESR 22 mm/hr (0-15)
[2023-05-05] MEDS: Ketorolac 15 MG/ML VIAL IVP (08:48)
[2023-05-05] MEDS: Normal Saline 1,000 ML 1000 ML IV (08:48)
[2023-05-05 08:50] LABS: INR 1.1 (0.9-1.1); Prothrombin Time 11.1 sec (9.3-11.0)
[2023-05-05 08:55] LABS: ALT 36 U/L (16-63); AST 47 U/L (15-37); Albumin 4.1 g/dL (3.4-5.0); Alkaline Phosphatase 64 U/L (46-116); BUN 13 mg/dL (7-18); Bilirubin, Total 1.3 mg/dL (0.2-1.0); C-Reactive Protein 9.56 mg/dL (0.0-0.3); CREATININE 1.2 mg/dL (0.70-1.30); Calcium 8.9 mg/dL (8.5-10.1); Chloride 96 mmol/L (98-107); Estimated GFR 79.38 (mL/min/1.73m2); Glucose 126 mg/dL (74-106); Magnesium 1.9 mg/dL (1.8-2.4); Potassium 3.6 mmol/L (3.5-5.1); Sodium 131 mmol/L (136-145); Total Protein 7.7 g/dL (6.4-8.2)
[2023-05-05] MEDS: VANCOMYCIN/WATER (PEG) 1.5 GM/300 ML BAG IV (09:30)
--- NOTE | 2023-05-05 09:38 | DI.VRAD_ITS ---
PROCEDURE INFORMATION: Exam: CT Left Upper Extremity Without Contrast Exam date and time: 05/05/2023 8:37 AM Age: 37 years old Clinical indication: Swelling; Hand and other: Forearm; Left TECHNIQUE: Imaging protocol: Computed tomography of the left upper extremity without contrast. Radiation optimization: All CT scans at this facility use at least one of these dose optimization techniques: automated exposure control; mA and/or kV adjustment per patient size (includes targeted exams where dose is matched to clinical indication); or iterative reconstruction. COMPARISON: CR XR HAND LT COMPLETE 04/30/2023 10:01 PM FINDINGS: Bones/joints: Normal. No acute fracture or dislocation. Soft tissues: There is dorsal subcutaneous inflammatory fat stranding extending from the mid forearm distally into the hand. No fluid collection. No gas. IMPRESSION: Dorsal hand, wrist and forearm cellulitis. Dictated and Authenticated by: Karmen Ogden MD. Ordering:MIKAELA Corona MD
[2023-05-05 10:42] LABS: Creatine Kinase 724 U/L (39-308)
== END 2023-05-05 11:53 | disposition left against medical advice (07) ==
PROVIDERS: Emergency Provider Nurse Practitioner Family; PCP Physician Assistant
DX: L03.114 Cellulitis of left upper limb (principal); Z53.21 Procedure and treatment not carried out due to patient leaving prior to being seen by health care provider
CPT/HCPCS: 36410; 36415; 80053; 82550; 85652; 87040; 96365; 96375; 99284; 73200; 83605; 83735; 85025; 85610; 86140; J1885

== ENCOUNTER 2023-05-05 21:52 | Inpatient (IN) | payer MEDICAID, SELFPAY ==
[2023-05-05 22:11] VITALS: BP 121/66; PULSE 85; RESP 22; TEMP 36.2; O2SAT 94
[2023-05-05 22:41] LABS: Abs Immature Grans 0.03 10^3/uL (0.0-0.06); Absolute Eosinophil Count 0.27 10^3/uL (0.0-0.7); Absolute Lymphocyte Count 2.09 10^3/uL (1.2-3.4); Absolute Monocyte Count 1.02 10^3/uL (0.1-0.8); Basophils % 0.6; Eosinophils % 2.5; HGB 12.8 g/dL (13.5-17.5); Immature Grans % 0.3; Lactate 1.4 mmol/L (0.6-1.4); Lymphocytes % 19.3; MCH 28.8 pg (27.0-33.0); MCHC 33.7 % (32.0-36.0); MCV 85 fL (80-95); MPV 9.4 fL (8.0-11.0); Monocytes % 9.4; Neutrophils % 67.9; Platelet Count 356 10^3/uL (130-400); RBC 4.45 10^6/uL (4.36-5.78); RDW 12.6 % (11.8-14.1); RDW-SD 39.2 fL; WBC 10.82 10^3/uL (4.4-10.8)
[2023-05-05 22:42] LABS: Absolute Basophil Count 0.06 10^3/uL (0.0-0.2); Absolute Neutrophil Count 7.35 10^3/uL (1.2-6.7)
[2023-05-05 22:58] LABS: ALT 34 U/L (16-63); AST 36 U/L (15-37); Albumin 3.9 g/dL (3.4-5.0); Alkaline Phosphatase 70 U/L (46-116); Anion Gap 8.6 mmol/L (3-11); BUN 12 mg/dL (7-18); Bilirubin, Total 0.7 mg/dL (0.2-1.0); CO2 26.4 mmol/L (21.0-32.0); CREATININE 1.2 mg/dL (0.70-1.30); Calcium 8.7 mg/dL (8.5-10.1); Chloride 99 mmol/L (98-107); Estimated GFR 79.38 (mL/min/1.73m2); Glucose 178 mg/dL (74-106); Potassium 3.3 mmol/L (3.5-5.1); Sodium 134 mmol/L (136-145); Total Protein 7.5 g/dL (6.4-8.2)
[2023-05-05] MEDS: ACETAMINOPHEN 1,000 MG/100 ML BTL 400 MG IVPB (23:19)
[2023-05-05] MEDS: Ketorolac 15 MG/ML VIAL IVP (23:20)
[2023-05-05] MEDS: AMPICILLIN/SULBACTAM 3 GM in Normal Saline 100 ML IVPB (23:21)
--- NOTE | 2023-05-05 23:55 | HPE_ITS ---
Date of service: 05/05/23 Time of Service: 23:56 Assessment and Plan Assessment and plan (1) Cellulitis: Start date: 05/05/23 Status: Acute Assessment and plan: This is a 37-year-old gentleman who had an injury to his left hand and progression of swelling now with severe cellulitis over the dorsum of his left hand with possible fluctuance. He was initiated on vancomycin and Unasyn which will be continued IV along with supportive care and trending labs with the patient having slight hyponatremia and hypokalemia. He denies any chronic alcohol use but does smoke tobacco. He denies any recent IV drug use though there has been some suspicion of him using in the bathroom to the ED with patient agreeable to having his belongings screened for inappropriate materials. Urine drug screen will be performed. (2) Opiate dependence: Status: Chronic Assessment and plan: Urine drug screen including fentanyl and buprenorphine. Patient admits that he has been an IV drug user using heroin in the past but not recently having gone through the rehabilitation. He does appear sedated upon exam and upon admission according to the nurses. (3) Hyponatremia: Start date: 05/05/23 Status: Acute Assessment and plan: IV hydration with normal saline overnight and check lab adjusting as needed. Consider fluid restriction. Patient also has mild hyperglycemia which may be secondary to stress with glucometer is not being checked at this time but will be initiated if his fasting glucose is elevated in the morning. Consider checking hemoglobin A1c. (4) Hypokalemia: Start date: 05/05/23 Status: Acute Assessment and plan: Follow-up labs and replete if needed. Patient will be given IV hydration overnight. (5) Depression: Assessment and plan: Patient carries a history of depression but not on treatment. He may want to consider treatment to avoid poor coping and return to IV drug use. (6) Tobacco dependence: Status: Chronic Assessment and plan: Upper nicotine patch if patient has withdrawals. He cannot smoke in the hospital. 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 His feet have abrasions and ulcerations from his sandals with superficial lacerations and abrasions over his legs which is chronic. 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 He did injure his left hand about 1 week ago now when he fell and grasped out with his left hand. He was seen in the ED at that time with negative imaging and was placed in a brace. He has had a gradual increase swelling of his left hand with redness and hot skin but no pointing or drainage. He denies any pain going up his arm. He is an IV drug user in the past using heroin but denies recent use. Urine drug screens with confirmation will be done. The patient did agree to having his belongings looked through by the staff to make sure he was not carrying materials he could use in the hospital. There was some suspicion in the ED that he was going to the bathroom and using his own stash. I confronted the patient about our concerns and safety and he was agreeable to having his belongings screened willingly and stated that he has not been using since he has been to rehabilitation. Reviewing the progression of his left hand injury, he states that after his sprain it began to swell 2 to 3 days into the injury. There were no recurrent injuries. In the ED he was found to have quite swollen left hand especially over the dorsum of the hand with finger is less swollen and slight fluctuance though no abscess was seen on CT. CRP and sed rate were elevated but WBC was not elevated. He also has some mild electrolyte abnormalities with the patient not being on chronic medical therapy. His glucose was also slightly elevated. He does not have a history of diabetes mellitus. The patient denies any fever or rigors. He has had no chest pain or GI symptoms. Patient does smoke tobacco but does not use inhalers. He is a full code. In the ED the patient was initiated on vancomycin with Unasyn after blood cultures were obtained. He will be admitted for IV antibiotic therapy for his severe cellulitis left hand. Review of Systems Narrative: 13 point review of systems otherwise unrevealing or stable. [facility] All Active Problems (Updated 05/06/23 @ 06:43 by Jose Monroy) Hypokalemia (Acute) Hyponatremia (Acute) Nausea & vomiting (Acute) Laceration of face (Acute) Facial trauma (Acute) Contusion of left wrist (Acute) Cellulitis (Acute) GERD (gastroesophageal reflux disease) (Chronic) Opiate dependence (Chronic) Vasovagal syncopes (Acute) Discharge planning issues (Acute) DVT prophylaxis (Acute) Upper respiratory infection, viral (Acute) Viral illness (Acute) Syncope (Chronic) Concussion (Acute) Allergic shiners (Acute 03/22/17) Telangiectasia (Acute 03/22/17) Opioid dependence in remission (Chronic) Tobacco dependence (Chronic) Medical History Chronic pain Depression hemorrhaging Post operative hemorrhaging Hemorrhoids Thrombosed hemorrhoids Surgical History H/O hemorrhoidectomy Incision & Drainage, Abscess or Hematoma Hemorrhoid Social History Smoking/Tobacco Use Status: Current-Occasional Tobacco Type: cigarettes Smoking risk assessment performed?: Yes Alcohol Intake: former Drug use: Daily Substance use type: marijuana and IV drugs Details: past history of opiates, cocaine, recently got out of rehab Housing: house Current gender identity: male Do you feel safe at home: Yes Do you feel safe in your relationship?: Yes Meds Allergies and Home Medications Allergies Allergy/AdvReac Type Severity Reaction Status Date / Time Iodinated Contrast Media Allergy Unknown ITCHING Verified 07/05/22 21:37 [Iodinated Contrast Media - Oral and] Home Medications Medication Instructions Recorded Confirmed Type Unknown [No Known Home Meds] 07/05/22 05/06/23 History Exam Narrative Exam Narrative: General: Patient appears appropriate for age, slightly disheveled, in no acute distress. He is sedated appearing having slow movements and slowly awakening when approached with nurses reporting that he was very drowsy during the night. He is oriented x3. HEENT: Normocephalic, eyes with pupils equal and react to light symmetrically, extraocular movement intact and sclera anicteric. Oropharynx with dry mucosa and fair dentition. Neck: Supple without JVD. Back: Stooped posture without CVA tenderness. Lung: Bronchovesicular breath sounds diffusely with no focalizing rales or rhonchi. Good aeration with no expiratory wheeze. Heart: Regular rate and rhythm with no murmurs or gallops appreciated. Abdomen: Normal contour, soft and nontender to palpation with no palpable hepatosplenomegaly. Bowel sounds positive all quadrants. Genitalia/rectal: Exam deferred. Extremities: Without clubbing, cyanosis or pitting edema. Patient does have multiple abrasions and dry ulceration of the scabs over his feet especially over his large and small toes bilaterally from his sandals with superficial abrasions over his legs without surrounding erythema. He also has a bruise over his left distal thigh with central blanching. Exam of hands reveal no needle haskins but he does have breakdown of his cuticles without ulcerations. Left hand is keenan edly swollen especially over the dorsum with slight wrinkling of skin and fluctuance to palpation along with tenderness and increased warmth to touch. Fingers are less swollen. Radial pulse and ulnar pulse are intact. There is no erythema extending up onto the forearm. Other peripheral pulses intact. Skin: Normal color, warm and dry. Multiple abrasions as mentioned. Neuro: Cranial nerves II through XII grossly intact. No focal motor deficits. No tremor. Psych: Flattened affect with patient appearing sedated upon approach but awakening slowly. Slow monotonous tone to voice with normal mood. No abnormal thought processes. Remote and recent memory grossly intact. Results Imaging Imaging Studies: EXAM:? XR HAND LT COMPLETE CLINICAL HISTORY: ? pain s/p fall. ? TECHNIQUE:? 2D digital imaging was performed. COMPARISON:? No exams were available for comparison FINDINGS: 3 views No evidence of acute fracture nor dislocation.? Fingers are held in flexion.? No radiopaque foreign body.? No osseous lesions.? No erosions. IMPRESSION: No acute fractures evident in the hand. Exam(s) CT UPPER EXTREMITY LT WO EXAM:? CT UPPER EXTREMITY LT WO CLINICAL HISTORY: ? hand pain and edema ? TECHNIQUE:? Imaging Protocol: Axial computed tomography images with coronal and sagittal reformatted images were created and reviewed. CONTRAST MATERIAL:? Intravenous: Omnipaque 350 Contrast volume:structured data in ml Contrast route:IV - Oral: yes / no COMPARISON:? CR,XR XR WRIST LT COMPLETE from 04/30/2023 FINDINGS: Osseous: No fractures evident.? No evidence of osteomyelitis.? No radiopaque foreign body.? However, there is prominent subcutaneous inflammatory stranding extending from the mid level of the forearm into the hand.? The deep stranding is confluent border on fluid collection over a distance of 10 cm on the dorsal aspect of forearm.? Similar findings seen over the dorsal aspect of the hand and wrist.? No soft tissue gas. IMPRESSION: Dorsal forearm, wrist, and hand inflammatory findings consistent with cellulitis.? The deep subcutaneous stranding is confluent border on fluid collection.? Recommend ultrasound follow-up over this area to determine if there is a true fluid collection which is delineable by US examination. Labs 05/05/23 22:35 05/05/23 22:35 Labs: Laboratory Results - last 24 hr 05/05/23 05/05/23 05/05/23 22:35 22:35 22:35 WBC 10.82 H RBC 4.45 Hgb 12.8 L Hct 38.0 L MCV 85 MCH 28.8 MCHC 33.7 RDW 12.6 Plt Count 356 MPV 9.4 Immature Gran % 0.3 Neutrophils % 67.9 Lymphocytes % 19.3 Monocytes % 9.4 Eosinophils % 2.5 Basophils % 0.6 Nucleated RBC % 0.0 Absolute Neutrophils 7.35 H Absolute Lymphocytes 2.09 Absolute Monocytes 1.02 H Absolute Eosinophils 0.27 Absolute Basophils 0.06 VBG Lactate 1.4 Sodium 134 L Potassium 3.3 L Chloride 99 Carbon Dioxide 26.4 Anion Gap 8.6 BUN 12 Creatinine 1.2 Est GFR (CKD-EPI 2020) 79.38 Glucose 178 H Calcium 8.7 Total Bilirubin 0.7 AST 36 ALT 34 Alkaline Phosphatase 70 Total Protein 7.5 Albumin 3.9 Last Vital Signs Temp 36.2 C L 05/05/23 22:11 Pulse 85 05/05/23 22:11 Resp 22 05/05/23 22:11 BP 121/66 05/05/23 22:11 Pulse Ox 94 05/05/23 22:11 Time Spent Time spent with Patient: >75 minutes Time was spent: preparing to see the patient(eg.review tests), obtaining and/or reviewing separately otained hiistory, ordering medications,tests, procedures, referring, communicating with other health progressive care nurse, indepentently interpreting results, counseling the patient and care coordination
[2023-05-06 00:26] VITALS: BP 128/109; PULSE 81; RESP 20; TEMP 36.7; O2SAT 98
--- NOTE | 2023-05-06 00:29 | NUR.NOTE ---
Pt got up to use bathroom and after getting back to ed rm he appears intoxicated with pinpoint pupils. He is A&Ox4, easily re-directed back to stretcher out of concern for him falling as he is swaying and restless in room. He did admit that he last used heroine/fentanyl 2 wks ago and there is concern that he may be using illicit drugs during ed stay. Security alerted. Bette warehouse shipping receiving clerk alerted and states that hospital staff may not search items d/t him not being a psych pt and we cannot take his belongings to secure them elsewhere. Will continue to monitor.
--- NOTE | 2023-05-06 01:17 | NUR.NOTE ---
Nursing Note: Pt arrived to unit sedated, lethargic, unable to keep eyes open or maintain posture. pt stated that he is extremely tired. denies drugs or alcohol use. denies search of possesions. VSS. wctm.
--- NOTE | 2023-05-06 01:56 | NUR.NOTE ---
Nursing Note: when checking on pt pt found in his bathroom with door locked. pt banging around in his room. so i opened the door from outside(2 way door) and patient is seen standing in doorway with red face, sniffling, and yelling that he needs to get this bugger out. Pt denies needs at this time. wctm.
--- NOTE | 2023-05-06 02:05 | NUR.NOTE ---
Nursing Note:pt has been locked in bathroom for 20 to 30 minutes. I yelled through the door and he was able to verbilize that he is okay. pt denied needs at this time. brinda.
[2023-05-06] MEDS: Normal Saline 1,000 ML 150 ML IV (02:40)
--- NOTE | 2023-05-06 02:41 | ED.GENADUL_ITS ---
Discharge Plan Discharge Details Chief Complaint: Cellulitis Admit Date/Time: 05/05/23 23:56 Admit Provider: Jose Monroy Attending Provider: Jose Monroy Primary Care Provider: Patrick Stanford ED Provider: Rupa Arthur Discharge Data Discharge Date/Time-TO BE ENTERED AT DEPARTURE: 05/06/23 00:52 Medical Decision Making Case discussed with Dr. Barry, hospitalist. The patient has had Vanco and Unasyn in the ED. Nursing certain that the patient is shooting up to the bathroom. He is a little unsteady with pinpoint pupils when he returns from there. Patient using his IV he has multiple track haskins some old and some new. He states the new ones from medical staff. He does not clearly have a modus of entry for the infection in his hand but has multiple cuts on his arms and legs. Medical Records Medical records reviewed: Yes I reviewed the patient's medical records. Lab Data Lab results reviewed: Yes I reviewed the patient's lab results. Lab results narrative: The patient's WBC is down from this morning and his lactate is negative. HPI General Date/Time Provider Initiated Documentation: 05/05/23 21:54 . HPI Narrative: This 37-year-old male patient with a history of IVDA presents with a chief complaint of infected left hand and forearm. Patient tells me that he got out of rehab and graduated from the program in March and early April. 6 days ago he was playing Frisbee when he slipped fell and landed on his outstretched left arm. He states it really did not hurt until the next day when his hand began aching. 2 days ago it began to swell and the day after that he began to get red. This got really pronounced over the weekend and was painful. He denies shooting into his hand arm or wrist. He was seen this morning and evaluated with labs and a CT scan. He had a white blood cell count 13.2 thousand with left shift. CK was 724 and CRP was 96. Received IV fluids, Vanco, and ketorolac. CT abdomen extremity showed prominent subcu inflammatory stranding in the mid forearm of the hand there was no abscess or soft tissue gas. The patient declined admission as he had to take care of his animals. He promised to come back in his back if he was not sent home on any oral antibiotics. She and is about the same right now. He again denies fever. Related Data Home Medications Medication Instructions Recorded Confirmed Unknown [No Known Home Meds] 07/05/22 05/06/23 Allergies Allergy/AdvReac Type Severity Reaction Status Date / Time Iodinated Contrast Media Allergy Unknown ITCHING Verified 07/05/22 21:37 [Iodinated Contrast Media - Oral and] General Stated Complaint: Cellulitis NADIRA: 3 Review of Systems Constitutional Constitutional: Denies chills, Denies fever(s), Denies headache(s) and Denies weakness Eyes Eyes: Denies diplopia and Reports other (no redness) ENT Ears, Nose, Mouth, and Throat: Denies otalgia, Denies headache(s), Denies nasal congestion, Denies nasal discharge, Denies neck pain and Denies sore throat Cardiovascular Cardiovascular: Denies chest pain, Denies palpitations and Denies dyspnea Respiratory Respiratory: Denies cough and Denies dyspnea Gastrointestinal Gastrointestinal: Denies abdominal pain, Denies diarrhea, Denies nausea and Denies vomiting Genitourinary Genitourinary: Denies difficulty urinating and Denies dysuria Musculoskeletal Musculoskeletal: Denies myalgias, Denies muscle weakness, Denies neck pain, Denies numbness and Reports other (Left hand and forearm are red hot and swollen) Integumentary/Breasts Skin/Breast: Denies change in pigmentation, Denies rash and Reports other (Left hand and forearm are red hot and swollen) Neurologic Neurologic: Denies headache(s), Denies numbness and Denies weakness Endocrine Endocrine: Denies palpitations PFSH All Active Problems Nausea & vomiting (Acute) Laceration of face (Acute) Facial trauma (Acute) Contusion of left wrist (Acute) Cellulitis (Acute) GERD (gastroesophageal reflux disease) (Chronic) Opiate dependence (Chronic) Vasovagal syncopes (Acute) Discharge planning issues (Acute) DVT prophylaxis (Acute) Upper respiratory infection, viral (Acute) Viral illness (Acute) Syncope (Chronic) Concussion (Acute) Allergic shiners (Acute 03/22/17) Telangiectasia (Acute 03/22/17) Opioid dependence in remission (Chronic) Tobacco dependence (Chronic) Medical History Chronic pain Depression hemorrhaging Post operative hemorrhaging Hemorrhoids Thrombosed hemorrhoids Surgical History H/O hemorrhoidectomy Incision & Drainage, Abscess or Hematoma Hemorrhoid Social History Smoking/Tobacco Use Status: Current-Occasional Tobacco Type: cigarettes Smoking risk assessment performed?: Yes Alcohol Intake: former Drug use: Daily Substance use type: marijuana and IV drugs Details: past history of opiates, cocaine, recently got out of rehab Housing: house Current gender identity: male Do you feel safe at home: Yes Do you feel safe in your relationship?: Yes Exam Const General: no acute distress, well developed, well groomed and not in acute distress Nutritional Appearance: well nourished Orientation: alert and oriented x3 HENMT Head: normocephalic and atraumatic Ears: external ears normal Mouth: oropharynx normal and moist mucous membranes Throat: posterior oropharynx normal Eyes Conjunctivae: conjunctivae normal Neck Neck: full ROM and supple Chest Chest: normal inspection of the chest Resp Effort & Inspection: normal respiratory effort Auscultation: clear to auscultation bilaterally Cardio Rate: regular rate Rhythm: regular rhythm Heart Sounds: no murmurs and no rubs GI Inspection: normal to inspection Palpation: soft, nontender and other (non distended) Auscultation: normal bowel sounds Skin General skin exam: other (PWD) Neuro General: patient alert, patient awake and patient oriented x3 Cognition: normal cognition Speech: speech normal Gait: normal gait Motor: muscle tone normal throughout and other (HARPER) Sensory Exam: no sensory deficits noted Extrem Other: TOSHIA has pronounced hand swelling and redness, mostly dorsal, extending into the fingers and up the forearm. The patient has good elbow range of motion. He is holding his hand in a claw position but can bend his fingers further without issue. Passive straightening does not seem to bother him much his fingers are soft. He is neurovascularly and distally. His hand is soft but tender patient Psych Mental Status: mental status grossly normal Speech and Movement: speech and movement normal Affect: normal affect Course Vital Signs Vital signs: Vital Signs Temperature 36.2 C L 05/05/23 22:11 Pulse 85 05/05/23 22:11 Respiratory Rate 22 05/05/23 22:11 Blood Pressure 121/66 05/05/23 22:11 Pulse Oximetry 94 05/05/23 22:11 Temperature 36.7 C 05/06/23 00:26 Temperature Source Oral 05/06/23 00:26 Pulse 81 05/06/23 00:26 Pulse Rhythm Regular 05/06/23 01:15 Respiratory Rate 20 05/06/23 00:26 Respiratory Effort Normal 05/06/23 01:15 Respiratory Depth Normal 05/06/23 01:15 Respiratory Pattern Normal 05/06/23 01:15 Blood Pressure 128/109 H 05/06/23 00:26 Blood Pressure Position Sitting 05/05/23 22:11 Pulse Oximetry 98 05/06/23 00:26 Oxygen Delivery Method Room Air 05/06/23 00:26 Oxygen Flow Rate 0 05/06/23 00:26 Pain Level 7 05/06/23 00:58 Lab/Test Results Lab/Test Results: 05/05/23 22:46 Blood Blood Culture - Pending 05/05/23 22:35 Blood Blood Culture - Pending Laboratory Tests Range/Units 05/05/23 05/05/23 05/05/23 22:35 22:35 22:35 WBC (4.4-10.8) 10^3/uL 10.82 H RBC (4.36-5.78) 10^6/uL 4.45 Hgb (13.5-17.5) g/dL 12.8 L Hct (40.0-50.0) % 38.0 L MCV (80-95) fL 85 MCH (27.0-33.0) pg 28.8 MCHC (32.0-36.0) % 33.7 RDW (11.8-14.1) % 12.6 Plt Count (130-400) 10^3/uL 356 MPV (8.0-11.0) fL 9.4 Immature Gran % 0.3 Neutrophils % 67.9 Lymphocytes % 19.3 Monocytes % 9.4 Eosinophils % 2.5 Basophils % 0.6 Nucleated RBC % (0.0-0.3) % 0.0 Absolute Neutrophils (1.2-6.7) 10^3/uL 7.35 H Absolute Lymphocytes (1.2-3.4) 10^3/uL 2.09 Absolute Monocytes (0.1-0.8) 10^3/uL 1.02 H Absolute Eosinophils (0.0-0.7) 10^3/uL 0.27 Absolute Basophils (0.0-0.2) 10^3/uL 0.06 VBG Lactate (0.6-1.4) mmol/L 1.4 Sodium (136-145) mmol/L 134 L Potassium (3.5-5.1) mmol/L 3.3 L Chloride (98-107) mmol/L 99 Carbon Dioxide (21.0-32.0) mmol/L 26.4 Anion Gap (3-11) mmol/L 8.6 BUN (7-18) mg/dL 12 Creatinine (0.70-1.30) mg/dL 1.2 Est GFR (CKD-EPI 2020) (mL/min/1.73m2) 79.38 Glucose (74-106) mg/dL 178 H Calcium (8.5-10.1) mg/dL 8.7 Total Bilirubin (0.2-1.0) mg/dL 0.7 AST (15-37) U/L 36 ALT (16-63) U/L 34 Alkaline Phosphatase (46-116) U/L 70 Total Protein (6.4-8.2) g/dL 7.5 Albumin (3.4-5.0) g/dL 3.9
[2023-05-06 02:45] VITALS: BP 132/100; PULSE 85; RESP 16; TEMP 37.5; O2SAT 94
--- NOTE | 2023-05-06 04:23 | NUR.NOTE ---
Nursing Note: pt removed iv from self. refused iv restart. this rn explained about him being here for abx and that he needed one for his 6am dose. pt stated that he refused until 0545. pt the msot awake and alert david seen him. brinda.
[2023-05-06] MEDS: AMPICILLIN/SULBACTAM 3 GM in Normal Saline 100 ML IVPB ×2 (06:07→11:15)
--- NOTE | 2023-05-06 06:26 | NUR.NOTE ---
Nursing Note: pt consented to search of belongings and UA with doc. He then left the room for 20 or so minutes, this rn checked immediatly to find pt in bathroom. after his exit this rn and charge wwent in and did a search, finding nothing. however, earlier a silver thermos was present and is now missing. pt in stable condition, brinda.
[2023-05-06 06:28] LABS: HCT 34.7 % (40.0-50.0); HGB 11.7 g/dL (13.5-17.5); MCHC 33.7 % (32.0-36.0); MCV 86 fL (80-95); MPV 9.4 fL (8.0-11.0); Platelet Count 298 10^3/uL (130-400); RBC 4.04 10^6/uL (4.36-5.78); RDW 12.8 % (11.8-14.1); RDW-SD 40.4 fL; WBC 8.49 10^3/uL (4.4-10.8)
[2023-05-06 06:34] LABS: ESR 12 mm/hr (0-15)
[2023-05-06 07:01] LABS: ALT 36 U/L (16-63); AST 32 U/L (15-37); Albumin 3.5 g/dL (3.4-5.0); Alkaline Phosphatase 61 U/L (46-116); Anion Gap 5.4 mmol/L (3-11); BUN 14 mg/dL (7-18); Bilirubin, Total 0.4 mg/dL (0.2-1.0); C-Reactive Protein 9.84 mg/dL (0.0-0.3); CO2 29.6 mmol/L (21.0-32.0); CREATININE 1.2 mg/dL (0.70-1.30); Calcium 8.5 mg/dL (8.5-10.1); Chloride 102 mmol/L (98-107); Estimated GFR 79.38 (mL/min/1.73m2); Glucose 126 mg/dL (74-106); Magnesium 2.1 mg/dL (1.8-2.4); Potassium 3.6 mmol/L (3.5-5.1); Sodium 137 mmol/L (136-145); Total Protein 6.9 g/dL (6.4-8.2)
[2023-05-06 07:17] VITALS: BP 116/66; PULSE 62; RESP 17; TEMP 36.6; O2SAT 97
--- NOTE | 2023-05-06 09:07 | INITIAL_ITS ---
Date of service: 05/06/23 Time of Service: 09:08 Care Management Initial Assmt Initial Assessment REASON FOR HOSPITALIZATION:: cellulitis PREVIOUS FUNCTIONAL STATUS/SOCIAL/FAMILY SUPPORTS:: Bridger lives in an apartment in [place] [place] with a friend. He also has 2 children ages 18 and 9 that live with him. 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 CURRENT FUNCTIONAL STATUS:: Bridger was sitting up in bed when CM met with him. He was polite but did not offer much conversation. Bridger is at [facility] because of cellulitis in his left hand. He informed CM that he hopes to be able to be discharged home tomorrow on oral antibiotics. ADVANCE DIRECTIVES:: none on file Has patient been provided with info about the portal/API?: No Did the patient sign up for the portal?: No CODE STATUS:: Full Code INSURANCE COVERAGE / FINANCIAL ISSUES:: medicaid CURRENT HOME/COMMUNITY SERVICES/EQUIPMENT:: none PRIMARY CARE PHYSICIAN:: Patrick Stanford POTENTIAL DISCHARGE NEEDS:: follow up with PCP and plan of care PATIENT/FAMILY EDUCATION NEEDS:: Review of discharge instructions, limitations, follow up plan, discuss Ask Me Three TRANSPORTATION:: via private vehicle PLAN:: Bridger will likely be discharged home with no new services. He will follow up with his PCP and plan of care and transport with family. CM will follow and continue to assess for discharge concerns. [facility] All Active Problems (Updated 05/06/23 @ 12:41 by Bryan Martin MD) Cellulitis of left hand (Acute) Cellulitis of left wrist (Acute) Hypokalemia (Acute) Hyponatremia (Acute) Nausea & vomiting (Acute) Laceration of face (Acute) Facial trauma (Acute) Contusion of left wrist (Acute) Cellulitis (Acute) GERD (gastroesophageal reflux disease) (Chronic) Opiate dependence (Chronic) Vasovagal syncopes (Acute) Discharge planning issues (Acute) DVT prophylaxis (Acute) Upper respiratory infection, viral (Acute) Viral illness (Acute) Syncope (Chronic) Concussion (Acute) Allergic shiners (Acute 03/22/17) Telangiectasia (Acute 03/22/17) Opioid dependence in remission (Chronic) Tobacco dependence (Chronic) Medical History Chronic pain Depression hemorrhaging Post operative hemorrhaging Hemorrhoids Thrombosed hemorrhoids Surgical History H/O hemorrhoidectomy Incision & Drainage, Abscess or Hematoma Hemorrhoid Social History Smoking/Tobacco Use Status: Current-Occasional Tobacco Type: cigarettes Smoking risk assessment performed?: Yes Alcohol Intake: former Drug use: Daily Substance use type: marijuana and IV drugs Details: past history of opiates, cocaine, recently got out of rehab Housing: house Current gender identity: male Do you feel safe at home: Yes Do you feel safe in your relationship?: Yes
[2023-05-06 09:43] LABS: Vancomycin, Random 4.3 ug/mL
[2023-05-06 11:10] VITALS: BP 103/63; PULSE 57; RESP 16; TEMP 36.5; O2SAT 97
[2023-05-06] MEDS: VANCOMYCIN/WATER (PEG) 1 GM/200 ML BAG IV (12:21)
--- NOTE | 2023-05-06 12:22 | W.PM.PROGNOT ---
Date of Service Date of service: 05/06/23 Time of Service: 12:22 Assessment and Plan Assessment and plan (1) Cellulitis of left wrist: Status: Acute Assessment and plan: continue vancomycin, change Unasyn to Cefepime; consult orthopedics to look evaluate for aspiration/drainage, use NSAIDS for pain and inflammation, elevation, ice packs (2) Cellulitis of left hand: Status: Acute Assessment and plan: as above Subjective Subjective Interval history since last seen: Patient admitted w/ left hand swelling and pain and redness. He says that he was playing w/ his dog throwing frisbee. He does not recall any skin tear or wounds to the left hand. 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 He denies any injectable drug use. He originially presented to the ED on 04/30 after this fall occurred. At that time he was brought in by EMS per [facility] request after he was picked up while screaming in public and he told EMS that he had been using cocaine and opiates but then claiming that he only used marijiuana. he was evaluated in the ED and complained of left wrist pain after a fall while playing frisbee w/ his dog. Xray of his left wrist and hand were done and this showed no fractures, dislocations or foreign bodies. He was given a splint and treated for left wrist contusion. Since that time his left hand and wrist have become swollen, painful to point he can not open and close the hand fully. Workup in the ED yesterday included CT scan of the left hand/wrist which showed cellulitis w/ an area of fluid over 10 cm area covering the distal forearm. Patient was advised for admission for parenteral antibiotics but patient declined admission yesterday. he was treated w/ Vancomycin while in the ED but was not sent home w/ an antibiotic RX. He returned later last night and was admitted for treatment of left hand cellulitis. He was started on Vancyomycin and Unasyn. Exam Narrative Exam Narrative: Left hand and wrist are markedly swollen to the point that there is loss of definition of the division between the individual bones of the hand and wrist and fingers. Skin is warm to touch and red w/ the edema extending from fingers and hand to the distal forearm. Radial and ulnar pulses are strong. Sensation to light touch is intact. He can not fully open or close the left hand d/t swelling and pain Left wrist and hand cellulitis w/ focal pocket of fluid that is dorsal to extensor tendons suspicous for abscess. This correlates w/ his CT findings from [facility]. Orthopedic consult recommended for aspiration/drainage Objective Last Vital Signs Temp 36.5 C 05/06/23 11:10 Pulse 57 L 05/06/23 11:10 Resp 16 05/06/23 11:10 BP 103/63 05/06/23 11:10 Pulse Ox 97 05/06/23 11:10 Laboratory Results - last 24 hr 05/05/23 05/05/23 05/05/23 22:35 22:35 22:35 WBC 10.82 H RBC 4.45 Hgb 12.8 L Hct 38.0 L MCV 85 MCH 28.8 MCHC 33.7 RDW 12.6 Plt Count 356 MPV 9.4 Immature Gran % 0.3 Neutrophils % 67.9 Lymphocytes % 19.3 Monocytes % 9.4 Eosinophils % 2.5 Basophils % 0.6 Nucleated RBC % 0.0 Absolute Neutrophils 7.35 H Absolute Lymphocytes 2.09 Absolute Monocytes 1.02 H Absolute Eosinophils 0.27 Absolute Basophils 0.06 ESR VBG Lactate 1.4 Sodium 134 L Potassium 3.3 L Chloride 99 Carbon Dioxide 26.4 Anion Gap 8.6 BUN 12 Creatinine 1.2 Est GFR (CKD-EPI 2020) 79.38 Glucose 178 H Calcium 8.7 Magnesium Total Bilirubin 0.7 AST 36 ALT 34 Alkaline Phosphatase 70 C-Reactive Protein Total Protein 7.5 Albumin 3.9 Random Vancomycin 05/06/23 05/06/23 05/06/23 06:16 06:16 06:16 WBC 8.49 RBC 4.04 L Hgb 11.7 L Hct 34.7 L MCV 86 MCH 29.0 MCHC 33.7 RDW 12.8 Plt Count 298 MPV 9.4 Immature Gran % Neutrophils % Lymphocytes % Monocytes % Eosinophils % Basophils % Nucleated RBC % Absolute Neutrophils Absolute Lymphocytes Absolute Monocytes Absolute Eosinophils Absolute Basophils ESR 12 VBG Lactate Sodium 137 Potassium 3.6 Chloride 102 Carbon Dioxide 29.6 Anion Gap 5.4 BUN 14 Creatinine 1.2 Est GFR (CKD-EPI 2020) 79.38 Glucose 126 H Calcium 8.5 Magnesium 2.1 Total Bilirubin 0.4 AST 32 ALT 36 Alkaline Phosphatase 61 C-Reactive Protein 9.84 H Total Protein 6.9 Albumin 3.5 Random Vancomycin 05/06/23 09:20 WBC RBC Hgb Hct MCV MCH MCHC RDW Plt Count MPV Immature Gran % Neutrophils % Lymphocytes % Monocytes % Eosinophils % Basophils % Nucleated RBC % Absolute Neutrophils Absolute Lymphocytes Absolute Monocytes Absolute Eosinophils Absolute Basophils ESR VBG Lactate Sodium Potassium Chloride Carbon Dioxide Anion Gap BUN Creatinine Est GFR (CKD-EPI 2020) Glucose Calcium Magnesium Total Bilirubin AST ALT Alkaline Phosphatase C-Reactive Protein Total Protein Albumin Random Vancomycin 4.3 Pocus Exam Limited Soft Tissue Exam DATE OF EXAM: 05/06/23 TIME OF EXAM: 12:37 PROVIDER THAT PERFORMED THE STUDY: Bryan Martin IS THIS A REPEAT EXAM DURING THIS ENCOUNTER: No LOCATION OF EXAM: Upper extremity/left (left hand/wrist) REASON FOR EXAM: Pain, Redness and Swelling VISUALIZED STRUCTURES: Fascia, Muscle, Skin and Subcutaneous tissue PERTINENT FINDINGS/IMPRESSION: Cellulitis left hand, wrist and distal forearm , Cobblestoning cobblestoning of soft tissues of left wrist, hand and distal forearm and Fluid collection dorsal fluid collection that is dorsal to the extensor tendons of the wrist, fluid collection was examined in two orthogonal views and color doppler was applied to be sure that this was not a vessel . Exam Complete Time Spent with Patient Time Spent with Patient: 25-34 minutes Time was spent: preparing to see the patient(eg.review tests), ordering medications,tests, procedures, referring, communicating with other health medicare coordinator, indepentently interpreting results, counseling the patient and care coordination
--- NOTE | 2023-05-06 13:28 | OCONE_ITS ---
Date of service: 05/06/23 Time of Service: 13:28 History of Present Illness History of Present Illness Chief Complaint: Left Hand Infection Narrative: Bridger is a 37-year-old who initially presented to the emergency department dorsal left hand pain. He reports some remote trauma hitting the left hand. At that time he had negative x-rays and just some generalized swelling at the dorsum of the left hand he has placed a wrist brace. In the ensuing few days he start developing worsening swelling and pain to the point he difficulties moving the fingers and had notable redness, warmth, and swelling. He presented back to the emergency department and was advised for hospital mission. He initially left AMA from the ED to take care of some things at home but then came back for admission. He has been on Unasyn and vancomycin. He reports pain and swelling stiffness to the left hand. He denies any palmar base symptoms. He denies numbness or tingling. He does report some discomfort and swelling up into the forearm. However, no elbow involvement. He denies true fevers or chills. He denies recent IV drug use or punctures to this left hand. Consults Consult date: 05/06/23 Requesting physician: Bryan Martin Consult Reason Left hand cellulitis Assessment and Plan Assessment and plan (1) Cellulitis of left hand: Status: Acute Assessment and plan: Bridger is a 37-year-old who suffered a contusion of the left wrist and hand which has resulted in a significant cellulitis about the dorsum of the left hand. There is concern for deep infection adjacent to the extensor tendons. I do not see any signs of septic arthritis. There is also no flexor involvement. On the ultrasound images the fluid is quite compressible which is less concerning for gross abscess. However, there very well could be an infectious or inflammatory tenosynovitis about the extensor tendons. Fortunately, for the extensor tendons, as long as there is no deep space infection deep to the extensor tendons surgery is not always warranted. The majority of his symptoms and clinical picture are more consistent with cellulitis. Nevertheless, he does have difficulty with moving his fingers which would not be unexpected and there is notable fluid seen around the tendons on the ultrasound. Therefore, I would continue to get the antibiotics some time. It is very possible they start to clear this up on their own. Extensor tendon involvement does not necessitate surgery and can be treated with antibiotics alone as long as you are seeing signs of improvement. I would continue with strict elevation of the left hand. Continue with antibiotics. I will reevaluate in the morning. N.p.o. after midnight. Review of Systems All systems reviewed & are unremarkable except as noted in HPI and below PFSH All Active Problems Cellulitis of left hand (Acute) Cellulitis of left wrist (Acute) Hypokalemia (Acute) Hyponatremia (Acute) Nausea & vomiting (Acute) Laceration of face (Acute) Facial trauma (Acute) Contusion of left wrist (Acute) Cellulitis (Acute) GERD (gastroesophageal reflux disease) (Chronic) Opiate dependence (Chronic) Vasovagal syncopes (Acute) Discharge planning issues (Acute) DVT prophylaxis (Acute) Upper respiratory infection, viral (Acute) Viral illness (Acute) Syncope (Chronic) Concussion (Acute) Allergic shiners (Acute 03/22/17) Telangiectasia (Acute 03/22/17) Opioid dependence in remission (Chronic) Tobacco dependence (Chronic) Medical History Chronic pain Depression hemorrhaging Post operative hemorrhaging Hemorrhoids Thrombosed hemorrhoids Surgical History H/O hemorrhoidectomy Incision & Drainage, Abscess or Hematoma Hemorrhoid Social History Smoking/Tobacco Use Status: Current-Occasional Tobacco Type: cigarettes Smoking risk assessment performed?: Yes Alcohol Intake: former Drug use: Daily Substance use type: marijuana and IV drugs Details: past history of opiates, cocaine, recently got out of rehab Housing: house Current gender identity: male Do you feel safe at home: Yes Do you feel safe in your relationship?: Yes Exam Narrative Exam Narrative: Sitting up in the hospital bed asleep. He does awake although it takes some effort. He is alert and oriented x3. He is in no acute distress. Evaluation of the left upper extremity shows obvious dorsal hand swelling. This is focused to the dorsum of the left hand. There is some level of edema and swelling present to the mid forearm region dorsally. There is no pain to palpation about the elbow and there is no obvious swelling at the level of the elbow or in the arm itself. He holds his hand with a semiflexed posture. He is able to weakly demonstrate extension and flexion of the digits as he reports this causes pain. He is able to actively extend and flex the thumb with slightly better effort. There is notable swelling about the dorsum of the hand although I am unable to palpate an area of fluctuance. No subcutaneous emphysema. If I keep his finger still gentle range of motion of the wrist does not seem to cause pain. No pain to palpation over the volar aspect of the forearm or about the palmar side of the hand. No pain with palpation of the radiocarpal space from a radial type approach or from the ulnar carpal space from a volar ulnar approach. Sensation intact to light touch of the median, radial, ulnar nerve. Palpable radial pulse. Results Last Vital Signs Temp 36.5 C 05/06/23 11:10 Pulse 57 L 05/06/23 11:10 Resp 16 05/06/23 11:10 BP 103/63 05/06/23 11:10 Pulse Ox 97 05/06/23 11:10 Labs 05/06/23 06:16 05/06/23 06:16 Labs: Laboratory Results - last 24 hr 05/05/23 05/05/23 05/05/23 22:35 22:35 22:35 WBC 10.82 H RBC 4.45 Hgb 12.8 L Hct 38.0 L MCV 85 MCH 28.8 MCHC 33.7 RDW 12.6 Plt Count 356 MPV 9.4 Immature Gran % 0.3 Neutrophils % 67.9 Lymphocytes % 19.3 Monocytes % 9.4 Eosinophils % 2.5 Basophils % 0.6 Nucleated RBC % 0.0 Absolute Neutrophils 7.35 H Absolute Lymphocytes 2.09 Absolute Monocytes 1.02 H Absolute Eosinophils 0.27 Absolute Basophils 0.06 ESR VBG Lactate 1.4 Sodium 134 L Potassium 3.3 L Chloride 99 Carbon Dioxide 26.4 Anion Gap 8.6 BUN 12 Creatinine 1.2 Est GFR (CKD-EPI 2020) 79.38 Glucose 178 H Calcium 8.7 Magnesium Total Bilirubin 0.7 AST 36 ALT 34 Alkaline Phosphatase 70 C-Reactive Protein Total Protein 7.5 Albumin 3.9 Random Vancomycin 05/06/23 05/06/23 05/06/23 06:16 06:16 06:16 WBC 8.49 RBC 4.04 L Hgb 11.7 L Hct 34.7 L MCV 86 MCH 29.0 MCHC 33.7 RDW 12.8 Plt Count 298 MPV 9.4 Immature Gran % Neutrophils % Lymphocytes % Monocytes % Eosinophils % Basophils % Nucleated RBC % Absolute Neutrophils Absolute Lymphocytes Absolute Monocytes Absolute Eosinophils Absolute Basophils ESR 12 VBG Lactate Sodium 137 Potassium 3.6 Chloride 102 Carbon Dioxide 29.6 Anion Gap 5.4 BUN 14 Creatinine 1.2 Est GFR (CKD-EPI 2020) 79.38 Glucose 126 H Calcium 8.5 Magnesium 2.1 Total Bilirubin 0.4 AST 32 ALT 36 Alkaline Phosphatase 61 C-Reactive Protein 9.84 H Total Protein 6.9 Albumin 3.5 Random Vancomycin 05/06/23 09:20 WBC RBC Hgb Hct MCV MCH MCHC RDW Plt Count MPV Immature Gran % Neutrophils % Lymphocytes % Monocytes % Eosinophils % Basophils % Nucleated RBC % Absolute Neutrophils Absolute Lymphocytes Absolute Monocytes Absolute Eosinophils Absolute Basophils ESR VBG Lactate Sodium Potassium Chloride Carbon Dioxide Anion Gap BUN Creatinine Est GFR (CKD-EPI 2020) Glucose Calcium Magnesium Total Bilirubin AST ALT Alkaline Phosphatase C-Reactive Protein Total Protein Albumin Random Vancomycin 4.3 Imaging Imaging Studies: X-ray of the left hand from April 30 does not show any specific abnormalities. No fractures. No loose bodies. X-ray of the wrist in that same time once again showed no signs of fracture, dislocation, or suspicious lesion. CT scan of the left hand and wrist performed on May 05 demonstrates subcutaneous swelling consistent with cellulitis. There is no air within the soft tissues. There is no apparent fluid around the tendons either palmarly or dorsally. This appears diffuse in nature without any specific abscess apparent. Ultrasound examination of the left hand performed at Dr. Jolley was also reviewed. This once again shows fat stranding throughout suggestive of cellulitis. There does appear to be some fluid around the extensor tendons alt sushant it is primarily located in a dorsal position it also appears to be quite compressible. I do not necessarily appreciate significant synovial thickening. There is no apparent fluid collection deep to the extensor tendons. There is no subcutaneous abscess present in the transverse view this is seen well with fluid adjacent to the dorsum of the extensor tendon but compresses easily with press ure from the probe likewise in a longitudinal view some fluid is seen adjacent to the dorsum of the tendons which is easily compressible.
[2023-05-06] MEDS: CEFEPIME 2 GM in Normal Saline 100 ML IVPB ×2 (13:57→20:43)
[2023-05-06 14:33] VITALS: BP 104/66; PULSE 63; RESP 18; TEMP 35.4; O2SAT 97
--- NOTE | 2023-05-06 15:42 | NUR.NOTE ---
ortho doc iwona placed pt in a stockenette to keep hand elevated. pt took it off as he said it was uncomfortable. pt educated that he will need to keep his hand elevated above his elbow. pt verbalizes understanding however does not follow through with actually keeping hand elevated. charge nurse notified
--- NOTE | 2023-05-06 16:40 | NUR.NOTE ---
asked pt to provide urine spec multiple times with no success.
[2023-05-06] MEDS: Ketorolac 15 MG/ML VIAL IVP (21:28)
[2023-05-06] MEDS: Acetaminophen 500 MG TAB 1000 MG PO (21:29)
[2023-05-06] MEDS: Normal Saline Flush 10 ML SYR IVP (21:29)
[2023-05-06 21:44] VITALS: BP 105/70; PULSE 52; RESP 14; TEMP 36; O2SAT 97
[2023-05-07] VITALS (10 sets, daily range): BP systolic 104–149; BP diastolic 62–77; PULSE 44–66; RESP 12–21; TEMP 35.9–36.9; O2SAT 96–100; BMI 26.2
[2023-05-07] MEDS: VANCOMYCIN/WATER (PEG) 1 GM/200 ML BAG IV ×3 (01:08→23:07)
[2023-05-07] MEDS: Ketorolac 15 MG/ML VIAL IVP ×4 (02:45→20:02)
[2023-05-07] MEDS: CEFEPIME 2 GM in Normal Saline 100 ML IVPB ×3 (04:40→20:03)
[2023-05-07 06:57] LABS: Abs Immature Grans 0.03 10^3/uL (0.0-0.06); Absolute Basophil Count 0.06 10^3/uL (0.0-0.2); Absolute Eosinophil Count 0.17 10^3/uL (0.0-0.7); Absolute Monocyte Count 0.54 10^3/uL (0.1-0.8); Absolute Neutrophil Count 6.01 10^3/uL (1.2-6.7); Basophils % 0.8; Eosinophils % 2.1; HCT 35.5 % (40.0-50.0); HGB 12.1 g/dL (13.5-17.5); Immature Grans % 0.4; Lymphocytes % 13.9; MCH 29.2 pg (27.0-33.0); MCHC 34.1 % (32.0-36.0); MCV 86 fL (80-95); MPV 9.7 fL (8.0-11.0); Monocytes % 6.8; Platelet Count 304 10^3/uL (130-400); RBC 4.15 10^6/uL (4.36-5.78); RDW-SD 40.9 fL; WBC 7.91 10^3/uL (4.4-10.8)
[2023-05-07 07:14] LABS: Anion Gap 7.3 mmol/L (3-11); BUN 8 mg/dL (7-18); C-Reactive Protein 5.52 mg/dL (0.0-0.3); CO2 26.7 mmol/L (21.0-32.0); CREATININE 0.9 mg/dL (0.70-1.30); Calcium 8.2 mg/dL (8.5-10.1); Chloride 107 mmol/L (98-107); Estimated GFR 112.11 (mL/min/1.73m2); Glucose 112 mg/dL (74-106); Potassium 3.5 mmol/L (3.5-5.1); Sodium 141 mmol/L (136-145)
--- NOTE | 2023-05-07 08:12 | W.PM.PROGNOT ---
Date of Service Date of service: 05/07/23 Time of Service: 07:40 Assessment and Plan Assessment and plan (1) Cellulitis of left hand: Status: Acute Assessment and plan: Bridger is a 37-year-old who has dorsal left hand cellulitis. There is likely a deep component of this. The ultrasound images yesterday performed by Dr. Jolley did demonstrate some fluid around the tendon although it is compressible. However, must be assumed now this is infectious in etiology and given the persistent of his symptoms and his young age I did offer irrigation debridement. I reviewed this with him. This would involve opening of the dorsum of the hand, irrigating and debriding the soft tissues about the left hand and the left extensor tendons. He is still antibiotics. I would place him to a splint afterwards. I reviewed the risk of the procedure to include bleeding, continued infection, damage to nerves and vessels, damage to muscle and tendons, continued stiffness, need for repeat procedures. Despite these risk, he elects to proceed. Subjective Subjective Interval history since last seen: Bridger does feel that some of the swelling has gotten better about the left hand as well as the redness. However, the pain is still quite present. He feels that the swelling of the dorsum of the left hand is unchanged. His ability to move his fingers well may be slightly better is largely limited by pain. He denies any new fevers or chills. He has been keeping it elevated. Exam Narrative Exam Narrative: No acute distress. Alert and oriented x3. Evaluation of the left hand shows prominence of the dorsum of the left hand centered mostly over the third metacarpal. There is some decrease in the hyperemia and erythema about the left hand. Some decrease in swelling about the distal forearm. Still persistent swelling about the left hand. No pain over the palmar aspect of the hand. No pain over the palmar wrist. No pain with gentle wrist range of motion. Objective Last Vital Signs Temp 36.5 C 05/07/23 07:33 Pulse 66 05/07/23 07:33 Resp 17 05/07/23 07:33 BP 123/77 05/07/23 07:33 Pulse Ox 97 05/07/23 07:33 Laboratory Results - last 24 hr 05/06/23 05/07/23 05/07/23 09:20 06:15 06:15 WBC 7.91 RBC 4.15 L Hgb 12.1 L Hct 35.5 L MCV 86 MCH 29.2 MCHC 34.1 RDW 13.0 Plt Count 304 MPV 9.7 Immature Gran % 0.4 Neutrophils % 76.0 Lymphocytes % 13.9 Monocytes % 6.8 Eosinophils % 2.1 Basophils % 0.8 Nucleated RBC % 0.0 Absolute Neutrophils 6.01 Absolute Lymphocytes 1.10 L Absolute Monocytes 0.54 Absolute Eosinophils 0.17 Absolute Basophils 0.06 Sodium 141 Potassium 3.5 Chloride 107 Carbon Dioxide 26.7 Anion Gap 7.3 BUN 8 Creatinine 0.9 Est GFR (CKD-EPI 2020) 112.11 Glucose 112 H Calcium 8.2 L Magnesium 2.0 C-Reactive Protein 5.52 H Random Vancomycin 4.3 Time Spent with Patient Time Spent with Patient: <25 minutes Time was spent: preparing to see the patient(eg.review tests), obtaining and/or reviewing separately otained hiistory, counseling the patient and care coordination
[2023-05-07] MEDS: Acetaminophen 500 MG TAB 1000 MG PO ×3 (09:16→20:02)
[2023-05-07] MEDS: Normal Saline Flush 10 ML SYR IVP (09:17)
--- NOTE | 2023-05-07 09:29 | PGE_ITS ---
Date of Service Date of service: 05/07/23 Time of Service: 09:29 Assessment and Plan Assessment and plan (1) Cellulitis of left hand: Status: Acute Assessment and plan: Currently on cefepime and vancomycin. blood cultures from 05/05 are NGTD. Patient is scheduled to go for I&D at noon by Dr. Dawn to drain the pocket of fluid from the dorsum of his hand. I spoke w/ pharmacy about ordering Dalvance to replace the vancomycin. I will wait to see if we get and results on his I&D. (2) Cellulitis of left wrist: Status: Acute Assessment and plan: as above Subjective Subjective Interval history since last seen: Bridger still has pain in his left hand but it has improved although he still not able to fully close the left hand. Swelling is gone down somewhat and the redness is markedly improved. Exam Narrative Exam Narrative: Left hand was examined there has been a marked decrease in the erythema. The edema has improved. Particularly in the distal forearm but there is still significant edema in the dorsum of the left hand as well as all the digits of the left hand. He made an attempt at closing of his hand but could not fully close his fingers. Still has tenderness to palpation of the dorsum of his hand and his wrist. Pulses are intact. Sensations grossly intact. Patient unable to grasp w/ his left hand and still has limite ROM about the wrist Objective Last Vital Signs Temp 36.5 C 05/07/23 07:33 Pulse 66 05/07/23 07:33 Resp 17 05/07/23 07:33 BP 123/77 05/07/23 07:33 Pulse Ox 97 05/07/23 07:33 Laboratory Results - last 24 hr 05/06/23 05/07/23 05/07/23 09:20 06:15 06:15 WBC 7.91 RBC 4.15 L Hgb 12.1 L Hct 35.5 L MCV 86 MCH 29.2 MCHC 34.1 RDW 13.0 Plt Count 304 MPV 9.7 Immature Gran % 0.4 Neutrophils % 76.0 Lymphocytes % 13.9 Monocytes % 6.8 Eosinophils % 2.1 Basophils % 0.8 Nucleated RBC % 0.0 Absolute Neutrophils 6.01 Absolute Lymphocytes 1.10 L Absolute Monocytes 0.54 Absolute Eosinophils 0.17 Absolute Basophils 0.06 Sodium 141 Potassium 3.5 Chloride 107 Carbon Dioxide 26.7 Anion Gap 7.3 BUN 8 Creatinine 0.9 Est GFR (CKD-EPI 2020) 112.11 Glucose 112 H Calcium 8.2 L Magnesium 2.0 C-Reactive Protein 5.52 H Random Vancomycin 4.3 Time Spent with Patient Time Spent with Patient: 25-34 minutes Time was spent: preparing to see the patient(eg.review tests), ordering medications,tests, procedures, referring, communicating with other health hospice care sales consultant, indepentently interpreting results, counseling the patient and care coordination
--- NOTE | 2023-05-07 09:44 | CMPROGNOTE_ITS ---
Date of service: 05/07/23 Time of Service: 09:44 Care Management Progress Note Progress Note Text Progress Note Text: S/O: Bridger went down to the OR today for washout of his left hand and was unavailable to meet with CM. He will likely discharge home with new [facility] RN services, if indicated when medically cleared by provider. CM will continue to follow. A: 37 year old male admitted to [facility] on 05/05/23 for C-diff Colitis, Covid P: Bridger will likely be discharged home with new [facility] services, if indicated. He will follow up with outpatient providers, plan of care as instructed and transport with family. CM will follow and continue to assess for discharge concerns.
--- NOTE | 2023-05-07 09:57 | NUR.NOTE ---
educated pt that there is still a urine spec pending and if he could provide that at his earliest convenience. he verbalizes understanding but states that he does not need to void at this time
--- NOTE | 2023-05-07 11:34 | ANES.PREOP_ITS ---
General Info Date of Service Date Performed: 05/07/23 Height: 6 ft 2 in Weight: 92.53 kg Body Mass Index (BMI): 26.2 Surgical Procedure: Operation Date: 05/07/23 12:10 Proposed Procedure Side Surgeon p Hand Washout Left Alek Dawn MD Meds Allergies and Home Medications Allergies Allergy/AdvReac Type Severity Reaction Status Date / Time Iodinated Contrast Media Allergy Unknown ITCHING Verified 07/05/22 21:37 [Iodinated Contrast Media - Oral and] Home Medication Medication Instructions Recorded Unknown [No Known Home Meds] 07/05/22 Current Visit Medications: Current Medications Generic Name Dose Route Start Last Admin Trade Name Freq PRN Reason Stop Dose Admin Acetaminophen 1,000 mg 05/06/23 16:00 05/07/23 11:09 Acetaminophen 500 Mg Tab PO Not Given QID WAYNE Al Hydrox/Mg Hydrox/Simethicone 30 ml 05/05/23 23:56 Mylanta Suspension 30 Ml Cup PO Q2H PRN PRN Dimethicone/Zinc Oxide 0 gm 05/05/23 23:56 [place] Protect Cream 142 Gm Tube TP PRN PRN Docusate Sodium 100 mg 05/05/23 23:56 Docusate Sodium 100 Mg Cap PO TID PRN PRN Enoxaparin Sodium 40 mg 05/06/23 06:00 05/07/23 06:51 Enoxaparin 40 Mg/0.4 Ml Syr SC Not Given Q24H WAYNE Sodium Chloride 500 mls @ 0 mls/hr 05/05/23 23:56 Saline 500ml Bag IV PRN PRN As Directed Sodium Chloride 1,000 mls @ 150 mls/hr 05/05/23 23:45 05/06/23 02:44 Saline 1000ml Bag IV 0 mls/hr INFUSION WAYNE Infusion Vancomycin/PEG/NADA/Lysine/Water 1 gm in 200 mls @ 133.333 mls/hr 05/06/23 12: 00 05/07/23 11:10 Vancocin Injection IV 133 mls/hr Q12H WAYNE Administration Cefepime HCl 2 gm/ Sodium 100 mls @ 200 mls/hr 05/06/23 12:00 05/07/23 11:10 Chloride IVPB 200 mls/hr Q8H WAYNE Administration IV Miscellaneous Supplies 1 each 05/05/23 23:45 Iv Access IV DIRECTED WAYNE Ketorolac Tromethamine 15 mg 05/06/23 14:00 05/07/23 09:17 Ketorolac 15 Mg/Ml Vial IVP 05/08/23 08:01 15 mg Q6H WAYNE Administration Magnesium Hydroxide 30 ml 05/05/23 23:56 Milk Of Magnesia 30 Ml Cup PO DAILY PRN PRN Polyethylene Glycol 17 gm 05/05/23 23:56 Polyethylene Glycol 3350 17 Gm Packet PO DAILY PRN PRN Constipation Sodium Chloride 0 ml 05/05/23 23:56 05/07/23 09:17 Normal Saline Flush 10 Ml Syr IVP 10 ml PRN PRN Administration PFSH Active Problems Active Problems: Problem Status Onset Code Cellulitis of left hand L03.114 Cellulitis of left wrist L03.114 Hypokalemia E87.6 Hyponatremia E87.1 Nausea & vomiting R11.2 Laceration of face S01.81XA Facial trauma S09.93XA Contusion of left wrist S60.212A Cellulitis L03.90 GERD (gastroesophageal reflux disease) K21.9 Opiate dependence F11.20 Vasovagal syncopes R55 Discharge planning issues Z02.9 DVT prophylaxis Z29.9 Opioid withdrawal F11.23 Upper respiratory infection, viral J06.9 Viral illness B34.9 Syncope R55 Concussion S06.0X9A Allergic shiners 03/22/17 J30.9 Telangiectasia 03/22/17 I78.1 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 Tobacco dependence F17.200 Medical History Medical History Chronic pain Depression hemorrhaging Post operative hemorrhaging Hemorrhoids Thrombosed hemorrhoids Surgical History Surgical History H/O hemorrhoidectomy Incision & Drainage, Abscess or Hematoma Hemorrhoid Tobacco Smoking/Tobacco Use Status: Current-Occasional Tobacco Type: cigarettes Smoking cigarettes per day: 10 Alcohol Alcohol Intake: former Substance Use Substance use: Daily Substance use type: marijuana and IV drugs Details: past history of opiates, cocaine, recently got out of rehab Vital Signs and Lab Results Vital Signs Most Recent Vital Signs in EMR: Most Recent Vital Signs Temp Pulse Resp BP Pulse Ox 36.5 C 66 17 123/77 97 05/07/23 07:33 05/07/23 07:33 05/07/23 07:33 05/07/23 07:33 05/07/23 07:33 Lab Results 05/07/23 06:15 05/07/23 06:15 Blood Type / Crossmatch: No Data to Display Complete Blood Count: White Blood Count 7.91 10^3/uL (4.4-10.8) 05/07/23 06:15 Red Blood Count 4.15 10^6/uL (4.36-5.78) L 05/07/23 06:15 Hemoglobin 12.1 g/dL (13.5-17.5) L 05/07/23 06:15 Hematocrit 35.5 % (40.0-50.0) L 05/07/23 06:15 Platelet Count 304 10^3/uL (130-400) 05/07/23 06:15 Venous Blood Lactate 1.4 mmol/L (0.6-1.4) 05/05/23 22:35 Complete Metabolic Panel: Sodium 141 mmol/L (136-145) 05/07/23 06:15 Potassium 3.5 mmol/L (3.5-5.1) 05/07/23 06:15 Chloride 107 mmol/L (98-107) 05/07/23 06:15 Carbon Dioxide 26.7 mmol/L (21.0-32.0) 05/07/23 06:15 BUN 8 mg/dL (7-18) 05/07/23 06:15 Creatinine 0.9 mg/dL (0.70-1.30) 05/07/23 06:15 Est GFR (CKD-EPI 2020) 112.11 (mL/min/1.73m2) 05/07/23 06:15 Magnesium 2.0 mg/dL (1.8-2.4) 05/07/23 06:15 Calcium 8.2 mg/dL (8.5-10.1) L 05/07/23 06:15 Albumin 3.5 g/dL (3.4-5.0) 05/06/23 06:16 Glucose 112 mg/dL (74-106) H 05/07/23 06:15 C-Reactive Protein 5.52 mg/dL (0.0-0.3) H 05/07/23 06:15 Liver Function Panel: Alanine Aminotransferase (ALT/SGPT) 36 U/L (16-63) 05/06/23 06: 16 Aspartate Amino Transf (AST/SGOT) 32 U/L (15-37) 05/06/23 06:16 Coagulation Panel: INR International Normalized Ratio 1.1 (0.9-1.1) 05/05/23 08:3 0 Prothrombin Time 11.1 sec (9.3-11.0) H 05/05/23 08:30 Cardiac Panel: Creatine Kinase 724 U/L (39-308) H 05/05/23 Arterial Blood Gas: No Data to Display Venous Blood Gas: No Data to Display Pancreas Panel: No Data to Display Thyroid Panel: No Data to Display Infectious Disease: No Data to Display Blood Cultures: No Data to Display Toxicology Panel: No Data to Display Anesthesia Assessment and Plan Anesthesia History Personal History: No History of Anesthesia Complications Family History: No Family History of Anesthesia Complications Exercise Tolerance Exercise Tolerance: Metabolic Equivalents>4 Pertinent Negatives Pertinent Negatives: No Symptoms of GERD Cardiac & Pulmonary Exam Cardiac Exam: Normal S1/S2 Heart Sounds Pulmonary Exam: Clear Bilateral Breath Sounds Implantable Cardiac Device Does patient have a Pacemaker or an ICD?: No Airway Exam Known Difficult Airway: No Mallampati Class: 2 Mouth Opening: Normal (> 3cm) Thyromental Distance: Greater than 3 cm Neck Range of Motion: Full ROM Neck Circumference: Normal Teeth Condition: Normal Dentition ASA Classification ASA Score: ASA 2 Emergency Case?: No NPO Status NPO Status: NPO Clears >2 hours, Solids >8 hours Anesthesia Plan Resuscitation Status: Full Code Anesthesia Technique: General Anesthesia Airway Planned: LMA Monitors Used: Standard Monitors
[2023-05-07] MEDS: ceFAZolin 2 GM/50 ML BAG 360 GM (13:10)
[2023-05-07] MEDS: Bupivacaine 0.25% Pres-Free 30 ML VIAL (13:10)
[2023-05-07] MEDS: Lactated Ringers 1,000 ML 125 ML IV (13:10)
--- NOTE | 2023-05-07 13:52 | W.ANESPOSTOP ---
Postoperative Evaluation Date, Time and Location Date Performed: 05/07/23 Time Performed: 13:52 Patient Location: PACU Vital Signs Most Recent Imported Vital Signs: Most Recent Vital Signs Temp Pulse Resp BP Pulse Ox 36.6 C 57 L 15 139/66 100 05/07/23 13:43 05/07/23 13:43 05/07/23 13:43 05/07/23 13:43 05/07/23 13:43 Pain Score Most Recent Pain Score: Most Recent Pain Score Pain Level [Left Hand] 2 05/06/23 21:25 Pain Level 0 05/07/23 13:43 Assessment Mental Status: Awake (Alert & Oriented to Patient Baseline) Airway and Respiratory Function: Patent airway with normal (patient baseline) respiratory exam Cardiovascular Function: Hemodynamically Stable Hydration Status: Adequately Hydrated Nausea & Vomiting: No Nausea or Vomiting Pain: Pain is Moderate or Severe Postoperative Pain Management: Pain being addressed with medication Peripheral Nerve Block: Patient did not receive a nerve block
--- NOTE | 2023-05-07 18:08 | ROE_ITS ---
Date of service: 05/07/23 Time of Service: 13:20 Operative Note Operative Note DATE OF PROCEDURE: 05/07/23 PRE-OP DIAGNOSIS: Left hand cellulitis POST-OP DIAGNOSIS: other (Deep infection of the dorsal left) PROCEDURE: Incision, irrigation, and debridement of deep space of the left hand SURGEON: Alek Dawn ANESTHESIA TYPE: General LMA/ETT Refer to Anesthesia Record ESTIMATED BLOOD LOSS: 50 PATHOLOGY: other (Aerobic and Anaerobic cultures) COMPLICATIONS: None Patient was transported to: PACU Patient's condition: stable Indications: Bridger is a 37-year-old male who had swelling and signs of cellulitis with the left hand. The cellulitis in the improvement he still had significant fullness to the dorsum left hand with restricted motion of the tendons. Therefore I recommend we proceed to the operating room for irrigation and debridement of the left dorsum hand for concern of deep space infection deep to the extensor tendons. I discussed the surgery with him. I reviewed the risk of the procedure to include bleeding, continued infection, pain, stiffness, damage nerves and vessels, damage to muscle tendons, need for repeat procedures. Despite these risks, he elected to proceed. Findings: There was gross purulence seen deep to the extensor tendons subfascially. There is also what appeared to be some old, clotted blood in this area as well. Anaerobic and aerobic cultures were sent from this area. It involved an area of the majority of the dorsum of the hand. This area was thoroughly irrigated and closed primarily. Procedure Description: Bridger was greeted the preoperative holding area. His identity was confirmed t he correct side was identified and marked. The consent was reviewed the patient and signed. History physical was previously performed. He was then taken back to the operating room and kept in the supine position on the stretcher. The left hand was placed onto a hand table. The hand was prepped ChloraPrep and draped in standard fashion. General anesthetic was administered. Prophylactic antibiotics were given. A timeout was performed for safe surgery. Longitudinal incision over the dorsum of the left hand was then made. This taken sharply the skin. There is some bleeding from superficial veins in this area which were coagulated. Deeper dissection was carried down with Metzenbaum scissors. Blunt dissection evaluated the tendon to the middle finger and the index finger. Between the tendons I then penetrated bluntly with a tenotomy scissor through the subfascial space where a whitmore of purulence was immediately encountered. There is is blood-tinged and there is some notable areas of thickened and coagulated blood. This was milked from over the entirety of the dorsum of the hand. Seem to rest underneath the extensor tendons extending from the 5th-2nd digit. This was fully evacuated. Culture samples were sent to the lab both aerobic and anaerobic. Debridement was performed a rongeur within the space and at the tendons to remove any bulk of inflammatory infectious tissue. The tendons did not look to be involved. I then utilized cystoscopy tubing to deliver 1 L of normal saline irrigation to the wound and hand. The tissue appeared to be quite healthy in this area. Muscles was completed I then injected the surgical site, superficially and deep, 0.25% ropivacaine with epinephrine. Tissue was then closed with interrupted #3-0 Vicryl followed by running, subcuticular 4-0 Monocryl suture. The hand was dressed with Xeroform, 4 x 4's, Kerlix and placed into a short arm splint. At the end the case all counts were correct. He tolerated the procedure well and was transferred back to the PACU in stable condition.
[2023-05-07] MEDS: oxyCODONE 5 MG TAB PO ×2 (18:37→22:20)
[2023-05-08] MEDS: Ketorolac 15 MG/ML VIAL IVP ×2 (01:34→08:37)
[2023-05-08] MEDS: oxyCODONE 5 MG TAB PO ×2 (03:25→09:25)
[2023-05-08] MEDS: CEFEPIME 2 GM in Normal Saline 100 ML IVPB (03:26)
--- NOTE | 2023-05-08 07:22 | DSE_ITS ---
Date of service: 05/08/23 Time of Service: 07:20 DS: Diagnosis Discharge Diagnosis (1) Cellulitis of left hand: Status: Acute Discharge Plan Disposition Patient Disposition: Home Condition: Improving Discharge Details Reason For Visit: Cellulitis Hand, Hyperglycemia Admit Date/Time: 05/07/23 18:07 Admit Provider: Jose Monroy Attending Provider: Alek Dawn Primary Care Provider: Patrick Stanford Hospital Course Hospital Course: Bridger is admitted to the hospital for a left hand cellulitis. The cellulitis seem to improve but there continued to be some prominence about the dorsum of the left hand with difficulty with finger motion. Ultrasound did not seem to indicate a deep abscess but given the persistence of the symptoms with resolution of the surrounding cellulitis, I was suspicious for a deep abscess. He underwent surgical irrigation and debridement on 05/07 where there was pus phoebe p to the extensor tendons. Tolerated irrigation debridement well although had an increase in pain. He is kept in a splint. The surgery was tolerated well without any notable medical, surgical, or anesthetic complications. Mobilization began postoperatively. He was voiding spontaneously. Culture results were not returned as of yet, however, he tolerated the cefepime and vancomycin well with resolution of symptoms. Therefore, the medical recommendation was to proceed with dalbavancin for discharge. No acute medical issues. Pain was controlled on oral regimen. Home Meds and New Rx's Prescriptions: New acetaminophen 500 mg tablet 1,000 mg PO Q8H PRN (Reason: pain) Qty: 90 3RF ibuprofen 600 mg tablet 600 mg PO TID PRN (Reason: pain) Qty: 90 3RF oxycodone 5 mg tablet 5 mg PO Q6H PRN (Reason: pain) Qty: 12 0RF Discharge Instructions Additional Instructions: Discharge Instructions Activity: You should keep the hand/wrist elevated as much as possible for the first few days. You may perform light activities with the splint in place. Dressing/Cast: Your splint should stay in place at all times. Do NOT get it wet. You may loosen the DANISH wrap if you feel it is too tight and then rewrap more loosely. Medications: - You should take Tylenol and Ibuprofen for baseline pain control. - You have been prescribed a stronger pain medication, Oxycodone, for breakthrough pain. - You may apply ice over the wrist, just double bag so it doesn't get wet. Follow-up: 7 days Referrals: Alek Dawn MD [ [facility] STAFF PHYSICIAN] - Activity:: Keep left hand in splint Equipment/Supplies:: No Equipment Needed Diet:: Carb Counting Discharge Orders Discharge Orders: Discharge Order (Routine); Ordered 05/08/23 Ordered By: Alek Dawn DS: Summary Time Spent with Patient providing and/or coordinating discharge services: Less than 30 minutes Status at Discharge Functional status at discharge: independent ambulation Overall status at discharge: patient is progressing back to baseline Mental Status: mental status grossly normal Speech and Movement: speech and movement normal Mood: congruent mood Affect: normal affect Exam Narrative Exam Narrative: Sitting up in the hospital bed. No acute distress. Alert and orient x3. Evaluation of the left hand shows minimal swelling of fingers. He is able to tolerate some active extension of flexion of the digits although does cause pain. Capillary fill less than 2 seconds. No proximal extension of erythema. Psych Mental Status: mental status grossly normal Speech and Movement: speech and movement normal Mood: congruent mood Affect: normal affect DS: Data Vitals/I&O Vitals and I&O: Vital Signs Temperature 36.6 C 05/07/23 23:42 Temperature Source Tympanic 05/07/23 23:42 Pulse 60 05/07/23 23:42 Pulse Rhythm Regular 05/08/23 02:42 Respiratory Rate 16 05/07/23 23:42 Respiratory Effort Normal 05/08/23 02:42 Respiratory Depth Normal 05/08/23 02:42 Respiratory Pattern Normal 05/08/23 02:42 Blood Pressure 104/62 05/07/23 23:42 Blood Pressure Position Sitting 05/05/23 22:11 Pulse Oximetry 97 05/07/23 23:42 Respiratory End-tidal CO2 37 05/07/23 13:48 Oxygen Delivery Method Room Air 05/07/23 23:42 Oxygen Flow Rate 0 05/07/23 23:42 Pain Level 8 05/08/23 03:25 Intake & Output 05/07/23 05/07/23 05/08/23 11:59 23:59 11:59 Intake Total 300 / 1823.75 1523.75 / 1823.75 300 / 300 Balance 300 / 1823.75 1523.75 / 1823.75 300 / 300 Weight 92.53 kg Intake: IV 300 / 1343.75 1043.75 / 1343.75 300 / 300 Oral 480 / 480 Other: Urine Appearance Clear Clear Emesis Description None Data Completed and Pending Labs on day of discharge: 05/07/23 13:05 Hand - Left Surgical Culture - Pending 05/07/23 13:05 Hand - Left Anaerobic Culture - Pending Preliminary micro results at discharge 05/05/23 22:46 Blood Culture - Preliminary Blood NO GROWTH 48 HOURS 05/05/23 22:35 Blood Culture - Preliminary Blood NO GROWTH 48 HOURS 05/07/23 13:05 Surgical Culture - Pending Hand - Left 05/07/23 13:05 Anaerobic Culture - Pending Hand - Left [facility] All Active Problems Cellulitis of left hand (Acute) Cellulitis of left wrist (Acute) Hypokalemia (Acute) Hyponatremia (Acute) Nausea & vomiting (Acute) Laceration of face (Acute) Facial trauma (Acute) Contusion of left wrist (Acute) Cellulitis (Acute) GERD (gastroesophageal reflux disease) (Chronic) Opiate dependence (Chronic) Vasovagal syncopes (Acute) Discharge planning issues (Acute) DVT prophylaxis (Acute) Upper respiratory infection, viral (Acute) Viral illness (Acute) Syncope (Chronic) Concussion (Acute) Allergic shiners (Acute 03/22/17) Telangiectasia (Acute 03/22/17) Opioid dependence in remission (Chronic) Tobacco dependence (Chronic) Medical History Chronic pain Depression hemorrhaging Post operative hemorrhaging Hemorrhoids Thrombosed hemorrhoids Surgical History H/O hemorrhoidectomy Incision & Drainage, Abscess or Hematoma Hemorrhoid Social History Smoking/Tobacco Use Status: Current-Occasional Tobacco Type: cigarettes Smoking risk assessment performed?: Yes Alcohol Intake: former Drug use: Daily Substance use type: marijuana and IV drugs Details: past history of opiates, cocaine, recently got out of rehab Housing: house Current gender identity: male Do you feel safe at home: Yes Do you feel safe in your relationship?: Yes Time Spent with Patient Time Spent with Patient: <45 minutes Time was spent: preparing to see the patient(eg.review tests), ordering medications,tests, procedures, referring, communicating with other health rn progressive care unit and counseling the patient
[2023-05-08] MEDS: Acetaminophen 500 MG TAB 1000 MG PO (08:38)
[2023-05-08 08:47] VITALS: BP 110/64; PULSE 67; RESP 16; TEMP 36.5; O2SAT 99
[2023-05-08] MEDS: DALBAVANCIN 1,500 MG in DEXTROSE 5%-WATER 325 ML 650 MG IVPB (09:20)
--- NOTE | 2023-05-08 10:21 | CMDISCH_ITS ---
Date of service: 05/08/23 Time of Service: 10:21 LACE Index Scoring Tool Questions: Length of Stay (in days): 1 Was the patient admitted via the E.D.?: Yes E.D. Visits: 3 Answers: Total Score: 7 Risk of Readmission: Low Risk Care Management Discharge Plan Reason for Hospitalization: cellulitis Discharge Plan: Bridger is discharged home via private vehicle with family. He will follow up with outpatient providers and discharge plan of care as recommen ded. No new services are ordered prior to discharge. Patient/Family Education Needs: Review discharge instructions, limitations, medications and plan to follow up with community providers. Discuss ask me three and goals of self care.
== END 2023-05-08 10:07 | disposition home or self-care (01) | DRG 580 ==
LOC: ER 05-06 00:07 → MS 05-06 00:52
PROVIDERS: Internal Medicine; Admitting Provider Family Medicine; Emergency Provider Emergency Medicine; PCP Physician Assistant; Visit Provider Student in an Organized Health Care Education/Training Program
PROC: 0J9K0ZZ Drainage of Left Hand Subcutaneous Tissue and Fascia, Open Approach (ICD-10-PCS; CPT 26020; principal; 2023-05-07 12:00)
DX: L03.114 Cellulitis of left upper limb (principal); E87.1 Hypo-osmolality and hyponatremia; F11.20 Opioid dependence, uncomplicated; L02.512 Cutaneous abscess of left hand; E87.6 Hypokalemia; F17.210 Nicotine dependence, cigarettes, uncomplicated; F32.A Depression, unspecified; R73.9 Hyperglycemia, unspecified; K21.9 Gastro-esophageal reflux disease without esophagitis
CPT/HCPCS: 26020; 11043; 36415; 76882; 80048; 80053; 80348; 85027; 85652; 87040; 96365; 96372; 96375; 99285; J1650; 80202; 83605; 83735; 85025; 86140; 87070; 87075; 87205; 99223; 99232; J0131; J0295; J0690; J0875; J1100; J1885; J2001; J2405; J2704

== ENCOUNTER → 2023-09-24 02:21 | Outpatient (CLI) | payer OTHER, SELFPAY ==
--- NOTE | 2023-09-24 | DI.MRI_ITS ---
Exam(s) MR UPPER EXTREMITY LT WO EXAM: MR UPPER EXTREMITY LT WO CLINICAL HISTORY: PAIN LEFT HAND M79.642 TECHNIQUE: Multiplanar multisequence MRI was performed. COMPARISON: CR,XR XR HAND LT COMPLETE from 04/30/2023 CR,XR XR WRIST LT COMPLETE from 04/30/[address] UPPER EXTREMITY LT WO from 05/05/2023 FINDINGS: MARROW:There is no evidence of fracture, bone contusion, nor avascular necrosis. There are no signif icant osseous lesions, erosions, nor evidence of osteomyelitis. MUSCLES: There is no evidence of abnormal signal nor mass in the visualized muscles. TENDONS: No acute tears nor tenosynovitis LIGAMENTS: Ulnar collateral ligament of the thumb appears intact. EXTRAMUSCULAR SOFT TISSUES: No abnormal signal, mass, or fluid collection. THUMB ARTICULATIONS: 1st carpometacarpal joint appears unremarkable. Metacarpophalangeal joint of th e thumb exhibits mild osteoarthritic degenerative changes. No erosions.. Interphalangeal joint of the thumb appears unremarkable. There is no abnormal intraosseous marrow signal in the thumb. THUMB LIGAMENTS: No evidence of UCL tear. THUMB TENDONS: No tears. There is mild tenosynovitis of the flexor pollicis longus tendon sheath but without evidence of tear of this tendon. IMPRESSION: 1. Mild tenosynovitis of the flexor pollicis longus but no tear of this tendon. 2. Mild degenerative changes in the metacarpophalangeal joint of the thumb. 3. No evidence of osteomyelitis. Given this patient's apparent inability to extend the thumb the above findings are doubtful for expla ining this and if clinically indicated further MRI imaging at the level the wrist can be performed to determine if there is more proximal culprit pathology. DATA REPOSITORY:
--- NOTE | 2023-09-25 04:48 | DI.VRAD_ITS ---
PROCEDURE INFORMATION: Exam: MR Left Upper Extremity Other Than Joint Without Contrast, Thumb. Exam date and time: 09/24/2023 8:45 AM Age: 37 years old Clinical indication: PT is unable to straighten or extend left thumb TECHNIQUE: Imaging protocol: Magnetic resonance imaging of the left upper extremity other than joint without contrast. Exam focused on the thumb. COMPARISON: CT UPPER EXTREMITY LT WO 05/05/2023 8:37 AM FINDINGS: Bones/joints: No suspicious bone marrow signal abnormality. No erosions are seen. There are changes of early/very mild osteoarthritis in the 1st metacarpophalangeal carpometacarpal joint, where there are tiny marginal osteophytes. There is a physiologic amount of joint fluid. Collateral ligaments of digits: Unremarkable. No evidence of tear. Flexor compartment tendons: No evidence of tear. Mildly increased fluid signal in the flexor pollicis longus tendon sheaths suggests mild tenosynovitis. Extensor compartment tendons: Unremarkable. No evidence of tear. Soft tissues: No acute or suspicious abnormality. No fluid collection or mass. Muscle bulk and signal are normal. IMPRESSION: 1. Mild flexor pollicis longus tenosynovitis in the left thumb. 2. 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 Dictated and Authenticated by: Coral Villavicencio MD. Ordering:TRE Cormier MD
== END ==
PROVIDERS: PCP Physician Assistant; Visit Provider Nurse Practitioner Adult Health
DX: M79.642 Pain in left hand (principal); M65.842 Other synovitis and tenosynovitis, left hand
CPT/HCPCS: 73218

== ENCOUNTER → 2023-12-05 00:29 | Outpatient (CLI) | payer OTHER, SELFPAY ==
--- NOTE | 2023-12-05 | DI.MRI_ITS ---
Exam(s) MR IAC BRAIN WO/W EXAM: MR IAC BRAIN WO/W CLINICAL HISTORY: SN HEARING LOSS,H90.5,? ACOUSTIC NEUROMA. TECHNIQUE: Multiplanar multisequence MRI of the brain and internal auditory canals was performed. CONTRAST MATERIAL: IV Contrast: 20 mL of Dotarem contrast administered. COMPARISON: CT CT HEAD WO from 06/22/2021 FINDINGS: VENTRICLES AND EXTRA AXIAL SPACES: Normal in size and morphology for the patient's age. HEMORRHAGE: None. CEREBRAL PARENCHYMA: No focus of restricted diffusion to suggest acute infarct. No space-occupying le manjinder identified.No white matter lesions. MIDLINE SHIFT: None. BRAINSTEM/CEREBELLUM: Normal. CALVARIUM: Normal. ENHANCEMENT: No suspicious enhancement identified. VISUALIZED PARANASAL SINUSES/MASTOIDS: Clear. ORBITS: Unremarkable. IAC/CP ANGLE: The internal auditory canals are within normal limits. The cerebellar pontine angles ar e unremarkable. No enhancing lesions are seen. Visualized portions of the cranial nerves appear withi n normal limits. OTHER FINDINGS: None. IMPRESSION: Unremarkable MRI of the brain and internal auditory canals. No evidence of acoustic neuroma. DATA REPOSITORY:
[2023-12-05] MEDS: Normal Saline Flush 10 ML SYR IVP (08:05)
[2023-12-05] MEDS: Gadoterate meglumine 20 ML SYRINGE IVP (08:05)
== END ==
PROVIDERS: PCP Physician Assistant; Visit Provider Nurse Practitioner Adult Health
DX: H90.5 Unspecified sensorineural hearing loss (principal)
CPT/HCPCS: 70553